=== PATIENT | male | born 1960 | race Caucasian/White ===

== ENCOUNTER → 2017-11-17 08:18 | Outpatient (CLI) | payer BC, SELFPAY ==
[2017-11-17 11:08] LABS: Hemoglobin A1c 6.9 % (4.2-6.3)
[2017-11-17 11:14] LABS: Anion Gap 8 (5-15); BUN 16 mg/dL (7-18); BUN/Creat Ratio 15.8 RATIO (10-20); Calcium,Total 9.1 mg/dL (8.5-10.1); Chloride 104 mmol/L (98-107); Cholesterol 128 mg/dL (200); Creatinine, Serum 1.01 mg/dL (0.70-1.30); EST Glomerular Filtration Rate 80 mL/min (>60); Est Glom Filt Rate - Afr Amer 97 mL/min (>60); Glucose 142 mg/dL (74-106); High Density Lipoprotein 33 mg/dL; PSA,Total- Diagnostic < 0.01 ng/mL (0.0-4.0); Potassium 4.2 mmol/L (3.5-5.1); Sodium Level 140 mmol/L (136-145); Triglycerides 122 mg/dL; Very Low Density Lipoprotein 24 mg/dL (5-40)
== END ==
PROVIDERS: Family Provider Family Medicine; PCP Family Medicine; Visit Provider Family Medicine
DX: I10 Essential (primary) hypertension (principal); E78.00 Pure hypercholesterolemia, unspecified; R73.03 Prediabetes; C61 Malignant neoplasm of prostate
CPT/HCPCS: 36415; 80048; 80061; 83036; 84153

== ENCOUNTER → 2018-06-26 13:10 | Outpatient (CLI) | payer BC, SELFPAY ==
[2018-06-26 13:43] LABS: Cholesterol 138 mg/dL (200); Glucose 120 mg/dL (74-106); High Density Lipoprotein 36 mg/dL; PSA,Total- Diagnostic < 0.01 ng/mL (0.0-4.0); Triglycerides 93 mg/dL; Very Low Density Lipoprotein 19 mg/dL (5-40)
[2018-06-26 13:44] LABS: Hemoglobin A1c 7.1 % (4.2-6.3)
== END ==
PROVIDERS: PCP Family Medicine; Visit Provider Family Medicine
DX: C61 Malignant neoplasm of prostate (principal); E11.9 Type 2 diabetes mellitus without complications; E78.00 Pure hypercholesterolemia, unspecified
CPT/HCPCS: 36415; 80061; 82947; 83036; 84153

== ENCOUNTER → 2018-12-23 08:17 | Outpatient (CLI) | payer BC, SELFPAY ==
[2018-12-23 10:29] LABS: Anion Gap 7 (5-15); BUN 17 mg/dL (7-18); BUN/Creat Ratio 20.2 RATIO (10-20); Calcium,Total 9.3 mg/dL (8.5-10.1); Chloride 108 mmol/L (98-107); Cholesterol 126 mg/dL (200); Creatinine, Serum 0.84 mg/dL (0.70-1.30); EST Glomerular Filtration Rate 99 mL/min (>60); Est Glom Filt Rate - Afr Amer 120 mL/min (>60); Glucose 122 mg/dL (74-106); High Density Lipoprotein 33 mg/dL; Potassium 4.3 mmol/L (3.5-5.1); Sodium Level 143 mmol/L (136-145); Triglycerides 73 mg/dL; Very Low Density Lipoprotein 15 mg/dL (5-40)
[2018-12-23 10:43] LABS: Hemoglobin A1c 6.6 % (4.2-6.3)
== END ==
PROVIDERS: Family Provider Family Medicine; PCP Family Medicine; Referring Provider Family Medicine; Visit Provider Family Medicine
DX: I25.10 Atherosclerotic heart disease of native coronary artery without angina pectoris (principal); I10 Essential (primary) hypertension; E11.9 Type 2 diabetes mellitus without complications
CPT/HCPCS: 36415; 80048; 80061; 83036

== ENCOUNTER → 2019-06-23 08:29 | Outpatient (CLI) | payer BC, SELFPAY ==
[2019-06-23 10:46] LABS: Hemoglobin A1c 6.6 % (4.2-6.3)
[2019-06-23 10:56] LABS: Cholesterol 121 mg/dL (200); Glucose 131 mg/dL (74-106); High Density Lipoprotein 32 mg/dL; PSA,Total- Diagnostic < 0.01 ng/mL (0.0-4.0); Triglycerides 79 mg/dL; Very Low Density Lipoprotein 16 mg/dL (5-40)
== END ==
PROVIDERS: Family Provider Family Medicine; PCP Family Medicine; Referring Provider Family Medicine; Visit Provider Family Medicine
DX: C61 Malignant neoplasm of prostate (principal); E11.9 Type 2 diabetes mellitus without complications; E78.00 Pure hypercholesterolemia, unspecified
CPT/HCPCS: 36415; 80061; 82947; 83036; 84153

== ENCOUNTER → 2019-09-03 06:19 | Outpatient (CLI) | payer BC, SELFPAY ==
[2019-08-25 12:03] VITALS: BMI 25.8
--- NOTE | 2019-09-03 08:22 | CT_ITS ---
STUDY: CT CHEST WITH CONTRAST REASON FOR EXAM: Male, 59 years old. AORTA DILATION -- HX-CABG RADIATION DOSAGE (If Supplied By Facility): CTDIvol = ( 9.51 ) mGy, DLP = ( 370.76 ) mGycm TECHNIQUE: Transaxial imaging was performed following intravenous administration of IV 100mL Isovue-300. Multiplanar coronal and sagittal images were reformatted. Individualized dose optimization techniques were used for this CT. COMPARISON: None. FINDINGS: Mild degree of increased markings at the lung bases suggest mild scarring. There is no demonstrated pleural abnormality. There are calcifications of the coronary arteries. Sternal cerclage wires and vascular clips are present from a prior sternotomy and coronary artery bypass graft procedure (CABG). Normal mediastinum. Normal hilar regions. Normal enhanced pulmonary arteries. The ascending thoracic aorta is dilated measuring 4.4 cm in maximum transverse dimension. There is no evidence of dissection. There are multi-level degenerative changes of the thoracic spine. There is no demonstrated abnormality of the visualized upper abdomen. CT/Chest WITH Contrast IMPRESSION: Dilatation of the ascending thoracic aorta. Electronically Signed: Mookie Strauss, at 15:11 EST , Service support ,
[2019-09-03 08:30] LABS: CREATININE FINGERSTICK 0.8 mg/dL (0.70-1.30); EGFR FINGERSTICK > 60.0000 mL/min (>60)
--- NOTE | 2019-09-03 09:30 | STRESSREP ---
Stress Test Report Exercise myocardial perfusion stress test. 59-year-old male with a history of chest pain. Stress protocol: Resting EKG demonstrates normal sinus rhythm with a rate of 63 bpm normal intervals are noted resting blood pressure is 112/68 mmHg. The patient exercised according to regular [place] protocol for a total duration of 12 minutes. The maximum heart rate attained was 141 bpm which was 88% maximum predicted heart rate the maximum workload was 13.4 metabolic equivalents. At rest there were no ST or T wave changes noted suggest ischemia peak exercise upsloping ST changes only were noted with no meet the criteria for ischemia. No clinical angina was noted. The resting blood pressures 112/68 with a peak blood pressure 166/64 mmHg rate-pressure product was 23,000. No clinical angina was noted the test was terminated due to leg fatigue. Myocardial perfusion protocol. 11.6 mCi of technetium 99m sestamibi was injected at rest. The patient exercised for 12 minutes and at peak exercise 33.2 mCi of technetium 99m sestamibi was injected stress images were obtained stress and rest images were reconstructed and compared in the short axis vertical long horizontal long axis. Gated images were also obtained per Perfusion SPECT analysis: Review of the stress images demonstrate normal uptake of tracer noted in all areas of the myocardium the resting images similar demonstrate normal uptake of tracer noted in all areas of the myocardium. No reversibility is noted suggest ischemia no previous infarct is noted. Gated SPECT analysis: The gated ejection fraction is 71%. Conclusion: Normal exercise myocardial perfusion stress test with no evidence of ischemia. Excellent functional capacity. Preserved ejection fraction.
== END ==
PROVIDERS: PCP Family Medicine; Referring Provider Internal Medicine Cardiovascular Disease; Visit Provider Internal Medicine Cardiovascular Disease
DX: I77.810 Thoracic aortic ectasia (principal); Z95.1 Presence of aortocoronary bypass graft
CPT/HCPCS: 71260; 78452; 93017; A9500; Q9967; A4216

== ENCOUNTER → 2019-12-23 08:35 | Outpatient (CLI) | payer BC, SELFPAY ==
[2019-08-25 12:03] VITALS: BMI 25.8
[2019-12-23 13:47] LABS: Anion Gap 6 (5-15); BUN 13 mg/dL (7-18); BUN/Creat Ratio 14.6 RATIO (10-20); Calcium,Total 9.4 mg/dL (8.5-10.1); Chloride 107 mmol/L (98-107); Creatinine, Serum 0.89 mg/dL (0.70-1.30); EST Glomerular Filtration Rate 93 mL/min (>60); Est Glom Filt Rate - Afr Amer 112 mL/min (>60); Glucose 135 mg/dL (74-106); Sodium Level 140 mmol/L (136-145)
[2019-12-23 13:50] LABS: Hemoglobin A1c 6.8 % (4.2-6.3)
== END ==
PROVIDERS: PCP Family Medicine; Visit Provider Family Medicine
DX: E11.9 Type 2 diabetes mellitus without complications (principal)
CPT/HCPCS: 36415; 80048; 83036

== ENCOUNTER → 2020-06-13 09:36 | Outpatient (CLI) | payer BC, SELFPAY ==
[2019-08-25 12:03] VITALS: BMI 25.8
[2020-06-13 12:34] LABS: ALB/GLOB Ratio 1.3 RATIO (0.9-2.4); AST(SGOT) 20 U/L (15-37); Alanine Aminotransfer ALT/SGPT 38 U/L (16-61); Alkaline Phosphatase 78 U/L (45-117); Anion Gap 9 (5-15); BUN 20 mg/dL (7-18); BUN/Creat Ratio 21.4 RATIO (10-20); Calcium,Total 8.9 mg/dL (8.5-10.1); Chloride 109 mmol/L (98-107); Cholesterol 134 mg/dL (200); Creatinine, Serum 0.93 mg/dL (0.70-1.30); EST Glomerular Filtration Rate 87 mL/min (>60); Est Glom Filt Rate - Afr Amer 106 mL/min (>60); Glucose 128 mg/dL (74-106); High Density Lipoprotein 43 mg/dL; PSA,Total- Diagnostic < 0.01 ng/mL (0.0-4.0); Sodium Level 139 mmol/L (136-145); Triglycerides 68 mg/dL; Very Low Density Lipoprotein 14 mg/dL (5-40)
[2020-06-13 13:05] LABS: Hemoglobin A1c 6.9 % (3.8-5.6)
== END ==
PROVIDERS: PCP Family Medicine; Referring Provider Family Medicine; Visit Provider Family Medicine
DX: E78.00 Pure hypercholesterolemia, unspecified (principal); I11.9 Hypertensive heart disease without heart failure; Z90.79 Acquired absence of other genital organ(s)
CPT/HCPCS: 36415; 80053; 80061; 83036; 84153

== ENCOUNTER → 2020-12-18 08:26 | Outpatient (CLI) | payer BC, SELFPAY ==
[2020-08-24 13:28] VITALS: BMI 25.8
[2020-12-18 10:23] LABS: Hemoglobin A1c 6.5 % (3.8-5.6)
[2020-12-18 10:31] LABS: ALB/GLOB Ratio 1.2 RATIO (0.9-2.4); AST(SGOT) 19 U/L (15-37); Alanine Aminotransfer ALT/SGPT 45 U/L (16-61); Albumin, Serum 3.8 g/dL (3.2-5.0); Alkaline Phosphatase 89 U/L (45-117); Anion Gap 5 (5-15); BUN 16 mg/dL (7-18); BUN/Creat Ratio 18.4 RATIO (10-20); Calcium,Total 9.3 mg/dL (8.5-10.1); Chloride 108 mmol/L (98-107); Cholesterol 123 mg/dL (200); Creatinine, Serum 0.87 mg/dL (0.70-1.30); EST Glomerular Filtration Rate 95 mL/min (>60); Est Glom Filt Rate - Afr Amer 115 mL/min (>60); Globulin 3.1 g/dL (2.2-4.2); Glucose 151 mg/dL (74-106); High Density Lipoprotein 38 mg/dL; PSA,Total- Diagnostic < 0.01 ng/mL (0.0-4.0); Potassium 4.6 mmol/L (3.5-5.1); Protein, Total 6.9 g/dL (6.4-8.2); Sodium Level 139 mmol/L (136-145); Triglycerides 58 mg/dL; Very Low Density Lipoprotein 12 mg/dL (5-40)
== END ==
PROVIDERS: PCP Family Medicine; Referring Provider Family Medicine; Visit Provider Family Medicine
DX: E78.00 Pure hypercholesterolemia, unspecified (principal); Z90.79 Acquired absence of other genital organ(s); E11.9 Type 2 diabetes mellitus without complications
CPT/HCPCS: 36415; 80053; 80061; 83036; 84153

== ENCOUNTER → 2021-06-20 08:40 | Outpatient (CLI) | payer BC, SELFPAY ==
[2021-06-20 10:20] LABS: Absolute Lymphocyte Count 1.45 X10^3/uL (0.83-4.51); Basophil# 0.04 X10^3/uL; Basophil% 0.6 % (0-1); Eosinophil# 0.25 X10^3/uL; Hematocrit 45.5 % (40-54); Hemoglobin 15.9 g/dL (13.0-16.5); Lymphocyte # 1.45 X10^3/ul (0.83-4.51); Lymphocyte % 23.4 % (19-41); Mean Corp Hgb Conc 34.9 g/dL (32-36); Mean Corpuscular Hgb 31.3 pg (27.0-32.0); Mean Corpuscular Volume 89.6 fL (80-94); Mean Platelet Vol. 11.2 fl (6.2-12.0); Monocyte# 0.42 X10^3/uL; Monocyte% 6.8 % (0-10); NRBC Flagged by Analyzer 0 % (0-5); Neutrophil # 4.02 X10^3/uL (2.7-7.7); Platelet Count 195 K/mm3 (150-450); RBC Distribution Width CV 12.6 % (11.6-14.6); RBC Distribution Width SD 41.6 fl (35.1-43.9); Red Blood Count 5.08 M/mm3 (4.6-6.2); White Blood Count 6.2 K/mm3 (4.4-11.0)
[2021-06-20 11:00] LABS: Microalbumin:Creatinine Ratio 7.3 mg/g CRE (<30 mg/g CRE)
[2021-06-20 11:22] LABS: Hemoglobin A1c 7.1 % (3.8-5.6)
[2021-06-20 11:34] LABS: AST(SGOT) 18 U/L (15-37); Alanine Aminotransfer ALT/SGPT 38 U/L (16-61); Albumin, Serum 3.5 g/dL (3.2-5.0); Alkaline Phosphatase 79 U/L (45-117); Anion Gap 4 (5-15); BUN 17 mg/dL (7-18); BUN/Creat Ratio 17.3 RATIO (10-20); Calcium,Total 9.2 mg/dL (8.5-10.1); Chloride 109 mmol/L (98-107); Cholesterol 113 mg/dL (200); Creatinine, Serum 0.98 mg/dL (0.70-1.30); EST Glomerular Filtration Rate 82 mL/min (>60); Est Glom Filt Rate - Afr Amer 99 mL/min (>60); Globulin 3.4 g/dL (2.2-4.2); Glucose 157 mg/dL (74-106); High Density Lipoprotein 36 mg/dL; Potassium 4.2 mmol/L (3.5-5.1); Protein, Total 6.9 g/dL (6.4-8.2); Sodium Level 138 mmol/L (136-145); Triglycerides 72 mg/dL; Very Low Density Lipoprotein 14 mg/dL (5-40)
== END ==
PROVIDERS: PCP Registered Nurse; Referring Provider Registered Nurse; Visit Provider Registered Nurse
DX: E11.9 Type 2 diabetes mellitus without complications (principal)
CPT/HCPCS: 36415; 80053; 80061; 82043; 82570; 83036; 85025

== ENCOUNTER 2021-08-31 16:35 | Outpatient (CLI) | payer BC, SELFPAY ==
--- NOTE | 2021-08-31 16:38 | CT_ITS ---
INDICATION: Ascending Aneurysm evaluation -- Previous CT- 09/03/2019 EXAMINATION: CT CHEST WITH CONTRAST - CT Chest W/ Contrast Injection TECHNIQUE: Helically acquired images were obtained of the chest following IV contrast. A radiation dose optimization technique was used for this scan. IV Contrast dosage and agent: 100 mL of ISOVUE-370 COMPARISON: CT chest 09/03/2019 FINDINGS: LUNGS, PLEURA AND LARGE AIRWAYS: No masses, consolidation, or edema. No pleural effusion or thickening. No pneumothorax. THYROID: No thyroid lesions. HEART AND PERICARDIUM: Heart size is normal. No pericardial effusion. Patient is status post prior coronary artery bypass graft with sternotomy wires present. VESSELS: Thoracic aorta measures 3.8 x 3.8 cm on axial images. No aortic dissection. No obvious central pulmonary embolism although this study was not performed with the pulmonary embolism protocol. MEDIASTINUM AND ROBIN: No mediastinal or hilar adenopathy. Esophagus is unremarkable. No hiatal hernia. UPPER ABDOMEN: 12 mm right hepatic lobe hypodensity unchanged compared to prior exam 08/20/2015 likely representing cyst. BONES: No suspicious lytic or blastic abnormality. CT/Chest WITH Contrast IMPRESSION: 3.8 x 3.8 cm descending thoracic aorta presenting mild ectasia. No dissection. 12 mm right hepatic lobe hypodensity unchanged compared with 2016 exam likely representing cysts. Electronically Signed: Orion Hernández DO at 22:45 EST Tel , Service support ,
[2021-08-31 16:51] LABS: CREATININE FINGERSTICK 0.8 mg/dL (0.70-1.30); EGFR FINGERSTICK > 60.0000 mL/min (>60)
== END 2021-08-31 23:59 | disposition short-term general hospital (02) ==
LOC: CT 16:37
PROVIDERS: PCP Family Medicine; Referring Provider Nurse Practitioner Family; Visit Provider Nurse Practitioner Family
DX: I71.2 Thoracic aortic aneurysm, without rupture (principal)
CPT/HCPCS: 71260; Q9967

== ENCOUNTER 2021-10-17 08:28 | Outpatient (CLI) | payer BC, SELFPAY ==
[2021-10-17 08:32] LABS: Bacteria 0 SEEN /hpf (None Seen); Mucous, Urine 0 SEEN /hpf (<or=2+); Red Blood Cells-Urine 0 SEEN /hpf (0-5); Squamous Epithelial Cells - UA 0 SEEN /hpf (0-5); White Blood Cells 0 SEEN /hpf (0-5)
[2021-10-17 10:08] LABS: Absolute Lymphocyte Count 1.63 X10^3/uL (0.83-4.51); Absolute Neutrophil Count 3.4 X10^3/uL (2.0-7.7); Basophil# 0.03 X10^3/uL; Basophil% 0.5 % (0-1); Color, Urine Yellow (Yellow); Eosinophil# 0.25 X10^3/uL; Eosinophils% 4.3 % (0-5); Glucose, Dipstick Normal (Normal); Hematocrit 46.4 % (40-54); Hemoglobin 15.6 g/dL (13.0-16.5); Ketone-Dipstick Negative (Negative); Leukocyte Esterase-Dipstick Negative /ul (Negative); Lymphocyte # 1.63 X10^3/ul (0.83-4.51); Lymphocyte % 28.1 % (19-41); Mean Corp Hgb Conc 33.6 g/dL (32-36); Mean Corpuscular Hgb 30.8 pg (27.0-32.0); Mean Corpuscular Volume 91.7 fL (80-94); Mean Platelet Vol. 11.2 fl (6.2-12.0); Monocyte# 0.48 X10^3/uL; Monocyte% 8.3 % (0-10); NRBC Flagged by Analyzer 0 % (0-5); Neutrophil % 58.6 % (47-70); Nitrite-Dipstick Negative (Negative); Occult Blood-Urine Negative /ul (Negative); Platelet Count 184 K/mm3 (150-450); Protein-Dipstick Negative (Negative); RBC Distribution Width CV 12.7 % (11.6-14.6); RBC Distribution Width SD 42.5 fl (35.1-43.9); Red Blood Count 5.06 M/mm3 (4.6-6.2); Urine Bilirubin Dipstick Negative (Negative); Urine Clarity Clear (Clear); Urine Urobilinogen Normal (Normal); White Blood Count 5.8 K/mm3 (4.4-11.0)
[2021-10-17 10:27] LABS: Hemoglobin A1c 6.7 % (3.8-5.6)
[2021-10-17 10:54] LABS: ALB/GLOB Ratio 1.3 RATIO (0.9-2.4); AST(SGOT) 19 U/L (15-37); Alanine Aminotransfer ALT/SGPT 37 U/L (16-61); Albumin, Serum 3.9 g/dL (3.2-5.0); Alkaline Phosphatase 71 U/L (45-117); Anion Gap 10 (5-15); BUN 20 mg/dL (7-18); BUN/Creat Ratio 20.9 RATIO (10-20); Calcium,Total 9.1 mg/dL (8.5-10.1); Chloride 105 mmol/L (98-107); Cholesterol 112 mg/dL (200); Creatinine, Serum 0.96 mg/dL (0.70-1.30); EST Glomerular Filtration Rate 84 mL/min (>60); Est Glom Filt Rate - Afr Amer 102 mL/min (>60); Globulin 3.1 g/dL (2.2-4.2); Glucose 137 mg/dL (74-106); High Density Lipoprotein 36 mg/dL; Microalbumin,Random Urine 10.5 mg/L (NO RANGE EST.); Potassium 4.1 mmol/L (3.5-5.1); Sodium Level 138 mmol/L (136-145); Thyroid Stim Hormone (TSH) 1.87 uIU/mL (0.358-3.74); Triglycerides 66 mg/dL; Very Low Density Lipoprotein 13 mg/dL (5-40)
[2021-10-17 10:55] LABS: Microalbumin:Creatinine Ratio 7.9 mg/g CRE (<30 mg/g CRE)
== END 2021-10-17 23:59 | disposition home or self-care (01) ==
LOC: MFPLAB 08:29
PROVIDERS: PCP Family Medicine; Referring Provider Family Medicine; Visit Provider Family Medicine
DX: E11.59 Type 2 diabetes mellitus with other circulatory complications (principal); E11.69 Type 2 diabetes mellitus with other specified complication
CPT/HCPCS: 36415; 80053; 80061; 81001; 82043; 82570; 83036; 84443; 85025

== ENCOUNTER → 2022-05-29 | Outpatient (CLI) | payer BC, SELFPAY ==
[2022-05-29 12:03] LABS: Absolute Lymphocyte Count 1.57 X10^3/uL (0.83-4.51); Absolute Neutrophil Count 3.9 X10^3/uL (2.0-7.7); Basophil# 0.04 X10^3/uL; Basophil% 0.6 % (0-1); Eosinophil# 0.39 X10^3/uL; Eosinophils% 6.1 % (0-5); Hematocrit 45.8 % (40-54); Hemoglobin 15.4 g/dL (13.0-16.5); Lymphocyte # 1.57 X10^3/ul (0.83-4.51); Lymphocyte % 24.6 % (19-41); Mean Corp Hgb Conc 33.6 g/dL (32-36); Mean Corpuscular Hgb 30.9 pg (27.0-32.0); Mean Corpuscular Volume 91.8 fL (80-94); Mean Platelet Vol. 11.6 fl (6.2-12.0); Monocyte# 0.47 X10^3/uL; Monocyte% 7.4 % (0-10); NRBC Flagged by Analyzer 0 % (0-5); Neutrophil # 3.89 X10^3/uL (2.7-7.7); Neutrophil % 61.1 % (47-70); Platelet Count 205 K/mm3 (150-450); RBC Distribution Width CV 12.8 % (11.6-14.6); RBC Distribution Width SD 42.4 fl (35.1-43.9); Red Blood Count 4.99 M/mm3 (4.6-6.2); White Blood Count 6.4 K/mm3 (4.4-11.0)
[2022-05-29 12:33] LABS: ALB/GLOB Ratio 1.3 RATIO (0.9-2.4); AST(SGOT) 18 U/L (15-37); Alanine Aminotransfer ALT/SGPT 46 U/L (16-61); Albumin, Serum 3.9 g/dL (3.2-5.0); Alkaline Phosphatase 79 U/L (45-117); Anion Gap 7 (5-15); BUN 19 mg/dL (7-18); BUN/Creat Ratio 20.9 RATIO (10-20); Calcium,Total 9.3 mg/dL (8.5-10.1); Chloride 108 mmol/L (98-107); Cholesterol 125 mg/dL (200); Creatinine, Serum 0.91 mg/dL (0.70-1.30); EST Glomerular Filtration Rate 89 mL/min (>60); Est Glom Filt Rate - Afr Amer 108 mL/min (>60); Globulin 3.1 g/dL (2.2-4.2); Glucose 154 mg/dL (74-106); High Density Lipoprotein 41 mg/dL; PSA,Total- Diagnostic < 0.01 ng/mL (0.0-4.0); Sodium Level 142 mmol/L (136-145); Thyroid Stim Hormone (TSH) 1.76 uIU/mL (0.358-3.74); Triglycerides 76 mg/dL; Very Low Density Lipoprotein 15 mg/dL (5-40)
[2022-05-29 12:42] LABS: Vitamin D,25 Hydroxy 35.3 ng/mL
[2022-05-29 13:32] LABS: Hemoglobin A1c 7.3 % (3.8-5.6)
== END | disposition home or self-care (01) ==
LOC: BIMLAB 08:28
PROVIDERS: PCP Internal Medicine; Referring Provider Internal Medicine; Visit Provider Internal Medicine
DX: I25.10 Atherosclerotic heart disease of native coronary artery without angina pectoris (principal); C61 Malignant neoplasm of prostate; E11.9 Type 2 diabetes mellitus without complications; I10 Essential (primary) hypertension; E78.5 Hyperlipidemia, unspecified; Z95.1 Presence of aortocoronary bypass graft
CPT/HCPCS: 36415; 80053; 80061; 82306; 83036; 84153; 84443; 85025

== ENCOUNTER → 2022-07-24 | Outpatient (CLI) | payer BC, SELFPAY | END | disposition home or self-care (01) | LOC: LABSPEC 13:48 | PROVIDERS: PCP Internal Medicine; Referring Provider Physician Assistant; Visit Provider Physician Assistant | DX: U07.1 COVID-19 (principal); R05.9 Cough, unspecified | CPT/HCPCS: 87635; U0003; U0005 ==

== ENCOUNTER 2022-10-04 08:15 | Day surgery (SDC) | payer BC, SELFPAY ==
[2022-10-04] VITALS (10 sets, daily range): BP systolic 108–123; BP diastolic 75–85; PULSE 52–60; RESP 16–18; TEMP 36.1–36.7; O2SAT 90–98; BMI 25.2
--- NOTE | 2022-10-04 | IMM_PTH ---
PATIENT: DASHAWN GARCIA [place]: [facility] [place][id number] AGE/SX: 62/M ROOM: RE10/04/[address]: Dr. David Miller MD : 1960 BED: DIS: 10/04/2022 SPEC #: [id number] RECD: 10/08/22 13:50 STATUS: KEMAR REQ #: [id number] ANAMARIA: 10/04/22 00:[address]: David Miller DEPT: IMMUNOHISTOCHEMISTRY RECD BY: Kathi Mckeon ENTERED: 10/08/22 13:52 SP TYPE: IMMUNO OTHR DR: Dr. Jessica Dan MD Tissues: Wrist, NOS Procedures: SMA (add) Bk Ret (add) CD31 (add) CD34 (add) DESMIN (add) KI-67 (add) P53 (add) Vimentin (add) SMM (add) FACTOR VIII (add) NEUROFIL (add) Pankeratin (initial) NSE (add) S-100 (add) PHYSICIAN & [address] [address] SPECIMEN INFORMATION: Tissue Source: Soft tissue mass right wrist Clinical Info: Ganglion cyst Specimen Number: [id number] CPT code: 14127, 07118 x13 METHODOLOGY: Deparaffinized sections of prefer/formalin-fixed tissue or PAP/DQ stained slides are incubated with monoclonal/polyclonal antibodies/oligonucleotide probes. Localization is made via biotin free immunoperoxidase method. Appropriate controls are performed and reacted as expected. Results on target cell population are indicated in the following table: RESULTS: ANTIBODY / CLONE RESULT AE1-3 (AE1/AE3/PCK26) negative Vimentin (V9) positive CD31 (MUKUL/70A) negative Factor VIII (R Ag) negative CD34 (QBEnd-10) negative Actin (1A4) positive Myosin (simms1) positive Desmin (CE-R-11) negative S-100 (4C4.9) negative Neurofil (2F11) negative NSE Neuron Specific Enolase negative CALRET (polyclonal) negative P53 (DO-7) negative Ki-67 (30-9) positive, 1% These tests were developed and their performance characteristics determined by [facility]. They may not have been cleared or approved by the U.S. Food and Drug Administration. The FDA has determined that such clearance or approval is not necessary. The above immunohistochemical/dualISH markers are ordered and reviewed by the Pathologist. INTERPRETATION: Soft tissue mass of right wrist, excision: Consistent with vascular leiomyoma. AM:joann 10/09/2022 Case has been reviewed in consultation with Dr. Delgado who concurs with the above diagnosis. IDC:SJ
[2022-10-04] MEDS: Cefazolin 2 GM in 0.9% Normal Saline 100 ML IV (08:26)
--- NOTE | 2022-10-04 08:58 | HP.PCM_ITS ---
History and Physical Date of Admission: 10/04/22 HISTORY OF PRESENT ILLNESS 62 year old man presents with a soft tissue mass dorsum right wrist by ring finger that he has had for a few years and has increased in size over the last several months.? There is some discomfort when it is bumped.? He denies trauma.? He denies numbness in his fingers.? He denies any range of motion issues right hand and wrist.? 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 He is right hand dominant.? He had an x-ray on 09/06/22. It showed osteopenia with mild osteoarthritic changes. No acute abnormality, chondrocalcinosis or erosive changes. He presents at this time for further evaluation and treatment. PAST MEDICAL HISTORY Atherosclerosis of coronary artery of [place] heart without angina pectoris Back problem Essential (primary) hypertension Ganglion cyst of dorsum of right wrist GERD (gastroesophageal reflux disease) Headache, migraine Heart disease Hemoglobin A1c between 7.0% and 9.0% Hyperlipidemia Old anterior wall myocardial infarction (05/23/13) Prostate cancer Thoracic aortic aneurysm (TAA) Type 2 diabetes mellitus PAST SURGICAL HISTORY H/O coronary artery bypass surgery (05/26/13) History of coronary angioplasty (05/23/13) History of prostatectomy (2015) ALLERGIES No Known Allergies MEDICATIONS aspirin nugavepa-wdl-rvnio osrm-hwapdcmg-cdjrjf (Centrum Silver Men) calcium carbonate chewable tablet (Tums) atorvastatin metoprolol tartrate benazepril metformin omeprazole amlodipine FAMILY HISTORY Father - CAD (coronary artery disease) SOCIAL HISTORY Smoking Status:? Former smoker alcohol intake:? current alcohol intake frequency: a few times a month Alcohol type: beer substance use type:? does not use REVIEW OF SYSTEMS General - Denies fever, fatigue, and weight loss. Eyes - Denies cataracts and glaucoma. ENT - Denies nasal congestion and sore throat. Endocrine - Denies excessive thirst and urination. ? Has diabetes mellitus.? HgbA1c is 7.3 on 05/29/22. Skin - Denies suspicious lesions and skin cancer.? Has soft tissue mass dorsum right wrist by ring finger.? Musculoskeletal - Denies joint pain, joint stiffness, weakness of muscles and joints, and arthritis.? Has back pain.? Neuro - Denies headaches. Cardiovascular - Denies chest pain, fatigue, and shortness of breath with exertion. Psych - Denies anxiety and depression. Respiratory - Denies chronic cough and shortness of breath.? Patient is a former smoker. Gastrointestinal - Denies nausea, vomiting, diarrhea, and constipation. Hematologic - Denies abnormal bruising and bleeding. Genitourinary - Denies hematuria and urinary frequency. PHYSICAL EXAMINATION General - Alert and Oriented. HEENT - PERRL. EOMI.? Throat is clear. Neck - Supple and nontender.? No cervical adenopathy. Lungs - Clear to auscultation. Heart - Regular rate and rhythm. Abdomen - Soft and nondistended. Extremities - FROM. No axillary adenopathy.? Radial pulses are palpable. Has good mechanical engineering director strength.? Patient is right hand dominant.? On the dorsum right wrist by ring finger is a soft tissue mass clinically a ganglion cyst.? It is mobile.? Measures 1.1 cm.? No ulceration.? Slight discomfort when the soft tissue mass is bumped.? Flexion and extension are intact.? Thumb opposition intact. Neuro - CN II-XII grossly intact. Psych - Normal mood and affect. ASSESSMENT 1.? 1.1 cm ganglion cyst dorsum right wrist by ring finger. 2.? Diabetes mellitus. 3.? HgbA1c 7.3 on 05/29/22. PLAN Patient has a soft tissue mass dorsum right wrist by ring finger that clinically is a ganglion cyst.? It has increased in size over the last several months, and there is some discomfort when it is bumped.? Recommend excision of this ganglion cyst that can be done on an outpatient basis under [place] anesthesia with a tourniquet.? Commonly these ganglion cysts originate from the scapholunate joint or the radiocarpal joint.? Will trace the stalk down to the joint and include a cuff of capsule to minimize recurrence.? Tissue that is excised will be sent to Pathology for analysis to rule out carcinoma.? Postoperatively he will wear a wrist splint for a couple of weeks.? His fingers will be free for range of motion exercises to minimize stiffness.? If any stiffness is persistent, then will need OT for range of motion exercises, strengthening, and edema management. He had an x-ray on 09/06/22. It showed osteopenia with mild osteoarthritic changes. No acute abnormality, chondrocalcinosis or erosive changes. Patient has diabetes mellitus and his latest HgbA1c is 7.3 on 05/29/22.? For elective surgeries, it needs to be less than 8.? Patient was informed of the risks and complications of the procedure including alternatives to surgery.? These were discussed with the patient personally.? Patient voices understanding and wishes to proceed. Some of the risks and complications were included in a form from the [employer]. Some of the risks and complications that were discussed included but were not inclusive of failure to diagnose including symptom relief, pain, infection, numbness, stiffness, loss of digit, RSD (CRPS), need for further surgery, contracture, and wound healing problems. Assessment & Plan Assessment/Plan (1) Ganglion cyst of dorsum of right wrist: (2) Type 2 diabetes mellitus: (3) Hemoglobin A1c between 7.0% and 9.0%:
[2022-10-04] MEDS: Lactated Ringers 1,000 ML 15 ML IV (09:03)
[2022-10-04 09:35] LABS: Bedside Glucose 168 mg/dL (74-106)
[2022-10-04] MEDS: Lidocaine 1% /Epi 1:100 (20ml) 20 ML Vial (09:55)
--- NOTE | 2022-10-04 09:55 | GANG_PTH ---
PATIENT: DASHAWN GARCIA LOC: [facility] – [place] U#:[id number] AGE/SX: 62/M ROOM: RE10/04/[address]: Dr. David Miller MD : 1960 BED: DIS: 10/04/2022 SPEC #: [id number] RECD: 10/04/22 13:49 STATUS: KEMAR REDavid #: [id number] ANAMARIA: 10/04/22 09:[address]: David Miller DEPT: SURGICAL PATHOLOGY RECD BY: aL Taylor ENTERED: 10/07/22 09:48 SP TYPE: GANGLION OTHR DR: Dr. Jessica Dan MD Tissues: GANGLION CYST Procedures: Surgery Specimen Level IV HEADER OPERATION: Excision ganglion cyst, dorsum right wrist PRE-OP DIAGNOSIS: 1.1 cm ganglion cyst right wrist by ring finger TISSUE SUBMITTED: Soft tissue mass right wrist MICROSCOPIC DIAGNOSIS Soft tissue mass of right wrist, excision: Consistent with vascular leiomyoma. See comment. AM:joann 10/09/2022 COMMENT Immunohistochemistry ([id number]) supports the above diagnosis. Case has been reviewed in consultation with Dr. Delgado who concurs with the above diagnosis. IDC:SJ MICROSCOPIC DESCRIPTION Slides are reviewed. GROSS DESCRIPTION Received in fixative is one container labeled with the patient's name and designated soft tissue mass right wrist. The specimen consists of two irregular fragments of light abrams-white soft tissue ranging in size from 0.5 to 1.5 cm. The specimen is totally submitted in one cassette. / AM:joann 10/07/2022 TC:1 CPT: 78231
[2022-10-04] MEDS: Mupirocin Ointment 22gm Tube 1 APPLIC (10:10)
--- NOTE | 2022-10-04 10:31 | OP.PCM_ITS ---
Problems Associated Problem List Diagnoses (1) Mass of soft tissue of wrist: (2) Type 2 diabetes mellitus: (3) Hemoglobin A1c between 7.0% and 9.0%: Report of Operation Date of Procedure: 10/04/22 Pre-Operative Diagnosis: 1. 1.1 cm soft tissue mass dorsum right wrist by ring finger, clinical ganglion cyst. 2. Diabetes mellitus. 3. HgbA1c 7.3 on 05/29/22. Post-Operative Diagnosis: 1. 1.1 cm solid soft tissue mass dorsum right wrist by ring finger. 2. Diabetes mellitus. 3. HgbA1c 7.3 on 05/29/22. Surgery/Procedure Performed:: Excision 1.1 cm solid soft tissue mass dorsum right wrist by ring finger. Description of Surgical Findings:: 62 year old man presents with a soft tissue mass dorsum right wrist by ring finger that he has had for a few years and has increased in size over the last several months.? There is some discomfort when it is bumped.? He denies trauma.? He denies numbness in his fingers.? He denies any range of motion issues right hand and wrist.? He has no problems with antisqueak chalker strength.? He is right hand dominant.? He had an x-ray on 09/06/22.? It showed osteopenia with mild osteoarthritic changes.? No acute abnormality, chondrocalcinosis or erosive changes.?? Patient was informed of the risks and complications of the procedure including alternatives to surgery. These were discussed with the patient personally. Patient voices understanding and wishes to proceed. Some of the risks and complications were included in a form from the [employer] [employer]. Potential risks and complications included but not inclusive of bleeding, infection, seroma, hematoma, bruising, swelling, loss of sensation to skin, wound breakdown, need for wound care, poor scarring, poor aesthetic outcome, intra operative cardiac or neurologic events, DVT, PE, and reaction to anesthesia. Total tourniquet time - 52 minutes. It was a solid soft tissue mass without communication with the underlying wrist joint. Surgeon: David Miller MD acute care nurse: None Type of Anesthesia: Block,So-Hi Anesthesiologist: Haseeb Aranda MD and Jeremiah Faust CRNA Specimen's removed: Soft tissue mass dorsum right wrist by ring finger to Pathology. Drains: None. Estimated Blood Loss (mL): 5. Description of Procedure: Patient was taken to OR in supine position and was given IV sedation. A tourniquet was placed and elevated to 250 mmHg. A So-Hi Block was administered. The right hand was prepped and draped in the usual fashion. SCD's were placed for DVT prophylaxis. Perioperative antibiotics were given intravenously. Horizontal marking was made over the mass with a zig zag extension radially in anticipation that if a ganglion cyst is seen, the stalk may travel radially toward the scapholunate joint. The marking was infiltrated with xylocaine and epinephrine. After waiting 5 minutes for the anesthetic to take effect, I made a horizontal incision over the mass under loupe magnification. Dissection was carried down into the subcutaneous tissue. The mass was well encapsulated. It felt firm. I extended the incision in a zig zag fashion radially to look for a stalk. None was seen. There was no communication with this soft tissue mass and the wrist joint. There was a dorsal sensory branch of the ulnar nerve that was preserved during this dissection. When this mass was excised, I made an incision into the mass on the back table. There was no gelatinous material seen to suggest a ganglion cyst. There was no sebaceous material seen to suggest an inclusion cyst. It was a solid firm mass suggestive of a fibroma. The mass was then sent to Pathology for analysis to rule out carcinoma. The tourniquet was released after 52 minutes. The wound was irrigated with saline. Hemostasis was obtained with electrocautery. The wound was then closed in a layered fashion using 4-0 Vicryl interrupted sutures for the deep dermis and subcutaneous tissue. The skin was approximated with 5-0 Nylon simple interrupted sutures. Antibiotic ointment was placed on the suture line followed by 2x2 gauze and wrapped with a Kerlix gauze and followed with a compression gio wrap. Since the wrist was not involved, no wrist splint was needed. Patient tolerated the procedure well and was sent to PACU in satisfactory condition. Patient will be sent home on antibiotics and pain medication. He will keep his right hand elevated during the initial postoperative period. Patient will followup in a week for a wound check and for discussion of the pathology report. I will remove the sutures in 2 weeks. Grafts/Implants Used: None. Procedure Start Time: 09:55 Procedure Stop Time: 10:25 Complications None. Admit VTE Documentation VTE Present on Admission: No VTE Mechan Device Prophylaxis: SCD's VTE Pharm Prophylaxis ordered?: No Addendum Addendum: Surgery Charges CPT - 05969 ICD-10 - M79.89, E11.9, R73.9
--- NOTE | 2022-10-04 11:53 | DCINST_ITS ---
Discharge Instructions Diet Discharge Diet: No restrictions Activity Discharge Activity: May Not Drive (for 24 hours and longer if taking pain medication), May Shower (wear plastic bag over right hand when showering.) and - (elevate right hand. 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 Keep extremity elevated above heart level: Right Arm Additional Activity Instructions:: may golf after being seen in office in one week. Dressing / Incision Call your doctor if your incision/area has: Continuous Slow Oozing, Sudden Increased Bleeding, Increased Pain/ Swelling, Increased Redness, Foul Smelling Discharge and Swelling at the incision site Call your doctor if you observe: Fever of 101 or Higher, Coldness, Increased Pain, Shortness of breath, Chest pain, Calf discomfort and Uncontrolled pain Change Dressing in: leave in place till F/U (will change operative dressing in office in one week. ) Cleanse incision/area with: Keep Dressing Clean & Dry (wear plastic bag over right hand when showering) Additional Dressing/Incision Instructions:: If the dressing is too tight, may loosen it and rewrap a little looser. Follow Up Care Please Follow Up With: David Miller MD When: one week. call [phone] for appt. Test Results: Test results from this visit will be discussed in further detail at your follow- up appointment, if applicable. Discharge Plan Admission Primary Reason for Your Visit: excision soft tissue mass dorsum right wrist Attending Provider: David Miller Primary Care Provider: Jessica Dan Discharge Orders/Prescriptions Prescriptions: New cefadroxil 500 mg capsule 500 mg PO BID Qty: 10 0RF L.acidoph,saliva-B.bif-S.therm [Acidophilus Probiotic Blend] 175 mg capsule 1 cap PO DAILY Qty: 10 0RF Continued aspirin [Adult Aspirin Regimen] 81 mg tablet,delayed release (DR/EC) 81 mg PO DAILY Label Comments: STOP 3 DAYS PRIOR Centrum Silver Men 300-600-300 mcg tablet 1 tab PO DAILY omeprazole 10 mg capsule,delayed release(DR/EC) 20 mg PO MOTH Label Comments: TAKE 1 CAPSULE BY MOUTH DAILY NEEDED FOR REFLUX Fiber (dextrin) 3 gram/3.5 gram Powder 3 g PO TID benazepril 40 mg tablet 40 mg PO QHS atorvastatin 80 mg tablet 80 mg PO QHS Qty: 90 3RF metoprolol tartrate 25 mg tablet 25 mg PO BID Qty: 180 3RF metformin 500 mg tablet 500 mg PO BID Qty: 180 3RF amlodipine 10 mg tablet 10 mg PO DAILY Qty: 90 3RF Referrals / Follow Up: David Miller MD [Med Staff - Active Staff] - (followup one week.) Jessica Dan MD [Primary Care Provider] - Disposition Disposition (needs filled in before D/C Order can be placed): Home, Self Care
== END 2022-10-04 12:43 | disposition home or self-care (01) ==
LOC: SDC 08:16 → AC 08:20
PROVIDERS: PCP Internal Medicine; Referring Provider Surgery; Visit Provider Surgery
PROC: (CPT 25075; principal; 2022-10-04 09:40)
DX: D21.11 Benign neoplasm of connective and other soft tissue of right upper limb, including shoulder (principal); I71.20 Thoracic aortic aneurysm, without rupture, unspecified; E11.9 Type 2 diabetes mellitus without complications; I10 Essential (primary) hypertension; I25.10 Atherosclerotic heart disease of native coronary artery without angina pectoris; E78.5 Hyperlipidemia, unspecified; K21.9 Gastro-esophageal reflux disease without esophagitis; I25.2 Old myocardial infarction; Z95.1 Presence of aortocoronary bypass graft; Z79.899 Other long term (current) drug therapy; Z79.82 Long term (current) use of aspirin; Z85.46 Personal history of malignant neoplasm of prostate; Z87.891 Personal history of nicotine dependence; Z79.84 Long term (current) use of oral hypoglycemic drugs
CPT/HCPCS: 25075; 01810; 82962; 88304; 88305; 88341; 88342; J7120; J2405

== ENCOUNTER → 2022-12-17 | Outpatient (CLI) | payer BC, SELFPAY ==
[2022-12-17 10:00] LABS: Absolute Lymphocyte Count 1.72 X10^3/uL (0.83-4.51); Basophil# 0.05 X10^3/uL; Basophil% 0.7 % (0-1); Eosinophil# 0.32 X10^3/uL; Eosinophils% 4.8 % (0-5); Hemoglobin 15.6 g/dL (13.0-16.5); Lymphocyte # 1.72 X10^3/ul (0.83-4.51); Lymphocyte % 25.7 % (19-41); Mean Corp Hgb Conc 33.9 g/dL (32-36); Mean Corpuscular Hgb 31.1 pg (27.0-32.0); Mean Corpuscular Volume 91.8 fL (80-94); Mean Platelet Vol. 11.1 fl (6.2-12.0); Monocyte# 0.58 X10^3/uL; Monocyte% 8.7 % (0-10); NRBC Flagged by Analyzer 0 % (0-5); Neutrophil # 4.02 X10^3/uL (2.7-7.7); Platelet Count 183 K/mm3 (150-450); RBC Distribution Width CV 12.4 % (11.6-14.6); RBC Distribution Width SD 41.9 fl (35.1-43.9); Red Blood Count 5.01 M/mm3 (4.6-6.2); White Blood Count 6.7 K/mm3 (4.4-11.0)
[2022-12-17 10:35] LABS: Hemoglobin A1c 7.5 % (3.8-5.6); Microalbumin,Random Urine 9.1 mg/L (NO RANGE EST.)
[2022-12-17 10:48] LABS: ALB/GLOB Ratio 1.2 RATIO (0.9-2.4); AST(SGOT) 21 U/L (15-37); Alanine Aminotransfer ALT/SGPT 42 U/L (16-61); Albumin, Serum 3.7 g/dL (3.2-5.0); Alkaline Phosphatase 93 U/L (45-117); Anion Gap 9 (5-15); BUN 17 mg/dL (7-18); BUN/Creat Ratio 19.6 RATIO (10-20); Calcium,Total 9.5 mg/dL (8.5-10.1); Chloride 107 mmol/L (98-107); Cholesterol 119 mg/dL (200); Creatinine, Serum 0.87 mg/dL (0.70-1.30); EST Glomerular Filtration Rate 94 mL/min (>60); Est Glom Filt Rate - Afr Amer 114 mL/min (>60); Globulin 3.1 g/dL (2.2-4.2); Glucose 168 mg/dL (74-106); High Density Lipoprotein 37 mg/dL; Potassium 4.2 mmol/L (3.5-5.1); Protein, Total 6.8 g/dL (6.4-8.2); Sodium Level 140 mmol/L (136-145); Thyroid Stim Hormone (TSH) 2.79 uIU/mL (0.358-3.74); Triglycerides 89 mg/dL; Very Low Density Lipoprotein 18 mg/dL (5-40)
== END | disposition home or self-care (01) ==
LOC: MTLAB 08:00
PROVIDERS: PCP Internal Medicine; Referring Provider Internal Medicine; Visit Provider Internal Medicine
DX: C61 Malignant neoplasm of prostate (principal); E11.9 Type 2 diabetes mellitus without complications; I51.9 Heart disease, unspecified; Z95.1 Presence of aortocoronary bypass graft; I10 Essential (primary) hypertension; E78.5 Hyperlipidemia, unspecified; Z13.220 Encounter for screening for lipoid disorders
CPT/HCPCS: 36415; 80053; 80061; 82043; 83036; 84443; 85025

== ENCOUNTER 2023-06-05 07:46 | Day surgery (SDC) | payer BC, SELFPAY ==
--- NOTE | 2023-05-29 12:49 | EKG12_ITS ---
Test Reason : PRE-OP Blood Pressure : / mmHG Vent. Rate : 066 BPM Atrial Rate : 066 BPM P-R Int : 162 ms QRS Dur : 082 ms QT Int : 388 ms P-R-T Axes : 000 -33 083 degrees QTc Int : 406 ms Normal sinus rhythm Left axis deviation Abnormal ECG Confirmed by HOLLIE SERRANO, DEQUAN ([id number]), industrial editor ROXANN GUSTAFSON ([id number]) on 05/30/2023 10:10:18 AM Referred By: Aly Fraire Confirmed By:DEQUAN BROWNE MD
[2023-05-29 13:35] LABS: Hematocrit 46.1 % (40-54); Hemoglobin 15.8 g/dL (13.0-16.5); Mean Corp Hgb Conc 34.3 g/dL (32-36); Mean Corpuscular Hgb 31.4 pg (27.0-32.0); Mean Corpuscular Volume 91.7 fL (80-94); Mean Platelet Vol. 10.7 fl (6.2-12.0); Platelet Count 206 K/mm3 (150-450); RBC Distribution Width CV 12.4 % (11.6-14.6); RBC Distribution Width SD 41.6 fl (35.1-43.9); Red Blood Count 5.03 M/mm3 (4.6-6.2); White Blood Count 6.2 K/mm3 (4.4-11.0)
[2023-05-29 14:00] LABS: Anion Gap 3 (5-15); BUN 20 mg/dL (7-18); BUN/Creat Ratio 16.5 RATIO (10-20); Calcium,Total 9.7 mg/dL (8.5-10.1); Chloride 105 mmol/L (98-107); Creatinine, Serum 1.21 mg/dL (0.70-1.30); EST Glomerular Filtration Rate 64 mL/min (>60); Est Glom Filt Rate - Afr Amer 77 mL/min (>60); Glucose 150 mg/dL (74-106); Potassium 4.5 mmol/L (3.5-5.1); Sodium Level 140 mmol/L (136-145)
[2023-05-29 18:23] LABS: Hemoglobin A1c 7.6 % (3.8-5.6)
[2023-06-05] VITALS (7 sets, daily range): BP systolic 122–136; BP diastolic 77–85; PULSE 56–67; RESP 16–18; TEMP 36.2–36.7; O2SAT 94–99; BMI 24.9
[2023-06-05] MEDS: Lactated Ringers 1,000 ML 15 ML IV (08:47)
[2023-06-05 09:11] LABS: Bedside Glucose 162 mg/dL (74-106)
--- NOTE | 2023-06-05 09:11 | HP.PCM_ITS ---
History and Physical Date of Admission: 06/05/23 Intake Vital Signs 04/24/2313:04 05/19/2308:45 Height 5 ft 6 in 5 ft 6 in Weight: 156 lb 4 oz 156 lb BMI 25.2 25.2 BP 115/77 146/80 H Blood Pressure Location Lt brachial Rt brachial Position Sitting Sitting Respiration 16 16 Pulse 58 L Pulse Source Monitor Temp 98.0 F Temp Source Temporal Pulse Oximetry (%) 93 Oxygen Delivery Method room air Intake Visit Reasons: INGUINAL HERNIA Chief Complaint: left groin, noticed 2-3 weeks [facility] [employer] Department Supervisor Required: No Is patient in pain?: No Allergies Environmental Allergies: Uncoded Adverse Reaction (Intermediate, Verified 05/19/23 08:46) Other Medications aspirin 81 mg tablet,delayed release (Adult Aspirin Regimen) 81 mg PO DAILY 08/23/19 [History Confirmed 05/19/23] [id number]-tfarf 300 mcg-K 60 mcg-lycop 600 mcg-lutein 300 mcg tablet (Centrum Silver Men) 1 tab PO DAILY 08/23/21 [History Confirmed 05/19/23] amlodipine 10 mg tablet 10 mg PO DAILY #90 tabs 07/29/22 [Rx Confirmed 05/19/23] dextrin 3 gram/3.5 gram oral powder (Fiber (dextrin)) 3 g PO TID 09/18/22 [History Confirmed 05/19/23] atorvastatin 80 mg tablet 80 mg PO QHS #90 tabs 03/18/23 [Rx Confirmed 05/19/23] metoprolol tartrate 25 mg tablet 25 mg PO BID #180 tabs 03/18/23 [Rx Confirmed 05/19/23] benazepril 40 mg tablet 40 mg PO QHS #90 tabs 04/18/23 [Rx Confirmed 05/19/23] omeprazole 10 mg capsule,delayed release 10 mg PO .COMPLEX 04/24/23 [History Confirmed 05/19/23] metformin 500 mg tablet 500 mg PO BID #180 tabs 05/15/23 [Rx Confirmed 05/19/23] PFSH Medical History Alcohol use Atherosclerosis of coronary artery of [place] heart without angina pectoris Back problem Cancer Cardiology follow-up encounter Diabetes Dietary restriction Essential (primary) hypertension Former smoker Ganglion cyst of dorsum of right wrist Gastric reflux GERD (gastroesophageal reflux disease) Headache, migraine Heart disease Hemoglobin A1c between 7.0% and 9.0% History of echocardiogram History of stress test Hyperlipidemia Hypertension Mass of soft tissue of wrist Old anterior wall myocardial infarction (05/23/13) Prostate cancer Thoracic aortic aneurysm (TAA) Type 2 diabetes mellitus Vascular leiomyoma Wears glasses Surgical History Cyst H/O coronary artery bypass surgery (05/26/13) History of coronary angioplasty (05/23/13) History of excision of lesion History of prostatectomy (2016) Hx of surgical procedure Family History Father CAD (coronary artery disease) Social History Smoking Status: Former smoker alcohol intake: current alcohol intake frequency: a few times a month Alcohol type: beer details: Beer 2 a week substance use type: does not use caffeine: Yes Type: coffee Number of servings: 1 what type of physical activity do you participate in: walking frequency: 5-6 times per week HPI HPI HPI: The patient is here for left groin swelling. He says has been going on for few months. He says that he is able to massage it back in place. He also has an umbilical hernia that has been there for many years. He is not describing any pain on the opposite side. Patient denies any fevers or chills or nausea or vomiting. There is no acute pain at the hernia currently. ROS General General: No weight change, appetite, fatigue, colon cancer, breast cancer or weakness HEENT HEENT: No difficulty swallowing, eye injury, eye surgery, swollen glands or hoarseness Endo Endocrine: Yes diabetes mellitus; No thyroid disease, thyroid cancer, Hair loss, heat intolerance or cold intolerance Skin Skin: No rash or changing moles Breast Breast: No left breast lump, right breast lump, nipple discharge, breast pain, abnormal mammogram, abnormal US or breast enlargement Musc Musculoskeletal: No back problems, arthritis, rheumatoid arthritis, gout or joint pain Cardio Cardiovascular: Yes heart disease, high blood pressure and heart attack; No murmur, pacemaker, atrial fibrillation, heart stent, palpitations, shortness of breat with exertion or chest pain Psych Psychiatric: No depression, anxiety or hearing voices Resp Respiratory: No shortness of breath, No sleep apnea, No cough, No COPD, No asthma, No emphysema and No wheezing Gastro Gastrointestinal: No abdominal pain, No nausea or vomiting, No diarrhea, No constipation, No blood in stool, Yes acid reflux, No hemorrhoids, No ulcers, No gallbladder problem and No black,tarry stools Eric Hematologic: Yes blood thinners, No blood disorders, No bleeding, No anemia and No blood clots Neuro Neurologic: No system reviewed and no additional complaints, except as documented, No as per HPI, No abnormal gait, No abnormal hearing, No abnormal movements, No abnormal speech, No behavioral changes, No burning sensations, No confusion, No convulsions, No disequilibrium, No dizziness, No localized weakness, No frequent falls, No headache(s), No lack of coordination, No loss of vision, No memory loss, No numbness, No other visual disturbances, No radicular pain, No restless legs, No sensory deficit, No syncope, No tingling, No tremor(s), No weakness and No other Exam Const General: cooperative Orientation: alert and oriented x3 [facility] Head: normal to inspection Neck Neck: normal visual inspection and full ROM Chest Chest palpation & inspection: normal inspection of the chest Resp Effort & Inspection: normal respiratory effort Auscultation: clear to auscultation bilaterally Cardio Rate: regular rate Rhythm: regular rhythm GI Inspection: non-distended Palpation: soft, hernia indirect inguinal on the left and umbilical and nontender Skin General: no rashes or lesions noted Neuro General: patient alert and patient oriented x3 Extrem General: full ROM Psych Appearance: grossly normal Mental Status: mental status grossly normal Assessment and Plan Assessment and Plan (1) Umbilical hernia: Status: Acute Qualifiers: Obstruction and gangrene presence: without obstruction or gangrene Qualified Code(s): K42.9 - Umbilical hernia without obstruction or gangrene (2) Reducible left inguinal hernia: Status: Acute Plan The patient has an umbilical hernia and a left inguinal hernia. I discussed robotic assisted laparoscopic inguinal hernia repair with mesh. I also discussed repairing his umbilical hernia. I discussed mesh placement and I dis cussed the risks of the procedure such as bleeding, infection, injury to other organ such as the bowel, bladder, ureter or blood supply the testicle. Patient understands the risks and is willing to proceed. If there is a hernia on the abscess that he would like that repaired. Patient will hold his aspirin for 5 days prior to the procedure. Aly Fraire MD Pager: [facility] [address] [place] [address], [address] [place] [address] Office: I have examined the patient and the H&P has been reviewed. There are no clinical changes since date of exam.
[2023-06-05] MEDS: Cefazolin 2 GM in 0.9% Normal Saline (100mL Bag) 100 ML IV (09:21)
[2023-06-05] MEDS: Bupivacaine Mpf 0.5% 30 ML VIAL (10:45)
--- NOTE | 2023-06-05 10:55 | OP.PCM_ITS ---
Report of Operation Date of Procedure: 06/05/23 Pre-Operative Diagnosis: Left inguinal hernia, umbilical hernia Post-Operative Diagnosis: Same Surgery/Procedure Performed:: Robotic assisted laparoscopic left inguinal hernia repair with mesh with repair of umbilical hernia Type of Anesthesia: General/Regional Estimated Blood Loss (mL): 10 Description of Procedure: Patient was brought back to the operating room and general anesthesia was induced. The abdomen was prepped and draped in usual sterile fashion. A curvilinear incision was made superior to the umbilicus at the hernia. The yaritza ia sac was entered and the contents were reduced. The hernia sac was dissected free. Port was placed into the abdomen and the abdomen was insufflated. Under direct visualization an 8 mm port was placed in the right lateral sidewall and left lateral sidewall. Next using the lateral sidewalls the adhesions from the omentum to the anterior abdominal wall at the umbilicus were taken down. Once the adhesions were taken down the robot was docked and the patient was placed in Trendelenburg position. Using electrocautery scissors an incision was made in the left inguinal peritoneum. Dissection was carried inferiorly until the hernia sac was encountered. The hernia sac was reduced. Dissection was carried posteriorly and then a large piece of ProGrip mesh was unfolded over the left inguinal region. It completely cover the defect with good overlap. Next the peritoneum was reapproximated using a running 3 OV lock suture. There is a small hole in the peritoneum which was closed with 3-0 Vicryl. The mesh was completely covered at the end of the case. The omentum was inspected 1 more and appeared to be hemostatic. The robot was undocked and the ports were removed and the air was allowed to desufflate from the abdomen. The umbilical hernia was closed with a [id number] 0 Vicryl suture. It was very small. The skin incisions were injected with local anesthetic. The skin incisions were closed with interrupted 4-0 Monocryl sutures. Steri-Strips and bandages were applied. Scrotum was checked in the case and contain both testicles. Grafts/Implants Used: ProGrip mesh in the left groin Admit VTE Documentation VTE Mechan Device Prophylaxis: SCD's
--- NOTE | 2023-06-05 10:58 | DCINST_ITS ---
Discharge Instructions Diet Discharge Diet: Light diet - advance as tolerated Activity Discharge Activity: May Not Drive (for 2-3 days or while taking narcotic pain meds.) and May Shower (with the bandage in place 1-2 days after surgery.) Lifting Restrictions: 20 pounds for 4 weeks Additional Activity Instructions:: Climbing stairs is fine, walking is encouraged. Sitting in bed may be uncomfortable. Sitting up using your lateral muscles (sitting up sideways) is usually more comfortable. Do not drive, work heavy equipment or sign legal documents for 24 hours. If your hernia repair was an inguinal repair, you may have scrotal swelling, an ice pack and/or athletic support can provide more comfort. Pain medications may cause nausea, you should typically eat light foods as you take your pain medications. Pain medications may also cause constipation. If you have difficulty with this, discuss with your doctor. Dressing / Incision Call your doctor if your incision/area has: Continuous Slow Oozing, Sudden Increased Bleeding, Increased Pain/ Swelling, Increased Redness and Foul Smelling Discharge Call your doctor if you observe: Fever of 101 or Higher Suture Line Care: Avoid Pulling/Pushing and Avoid Pinching/Bending Remove Dressing in: 2 days (Remove clear bandages in 2 days, remove Steri-Strips in 7 to 10 days.) Follow Up Care Please Follow Up With: Aly Fraire MD When: Please call to schedule 2 week follow up appointment. [phone] Test Results: Test results from this visit will be discussed in further detail at your follow- up appointment, if applicable. Discharge Plan Admission Attending Provider: Aly Fraire Primary Care Provider: Jessica Dan Discharge Orders/Prescriptions Prescriptions: New oxycodone 5 mg tablet 5 - 10 mg PO Q6H PRN (Reason: pain) 3 Days Qty: 5 0RF No Action aspirin [Adult Aspirin Regimen] 81 mg tablet,delayed release (DR/EC) 81 mg PO DAILY Patient Comments: STOP 3 DAYS PRIOR Centrum Silver Men 300-600-300 mcg tablet 1 tab PO DAILY omeprazole 10 mg capsule,delayed release(DR/EC) 10 mg PO .COMPLEX Rx Instructions: 10 mg orally 2x week; Fiber (dextrin) 3 gram/3.5 gram Powder 3 g PO BID amlodipine 10 mg tablet 10 mg PO DAILY Qty: 90 3RF metoprolol tartrate 25 mg tablet 25 mg PO BID Qty: 180 3RF atorvastatin 80 mg tablet 80 mg PO QHS Qty: 90 3RF benazepril 40 mg tablet 40 mg PO QHS Qty: 90 3RF metformin 500 mg tablet 500 mg PO BID Qty: 180 3RF Referrals / Follow Up: Jessica Dan MD [Primary Care Provider] - Disposition Disposition (needs filled in before D/C Order can be placed): Home, Self Care
[2023-06-05 11:26] LABS: Bedside Glucose 193 mg/dL (74-106)
[2023-06-05] MEDS: Ibuprofen 200 MG Tablet 600 MG PO (11:51)
[2023-06-05] MEDS: Acetaminophen 325 MG Tablet 650 MG PO (12:47)
== END 2023-06-05 13:26 | disposition home or self-care (01) ==
LOC: SDC 07:47 → AC 07:49
PROVIDERS: Anesthesiology; PCP Internal Medicine; Referring Provider Surgery; Visit Provider Surgery
PROC: 0YQ64ZZ Repair Left Inguinal Region, Percutaneous Endoscopic Approach (ICD-10-PCS; CPT 49650; principal; 2023-06-05 09:05)
DX: K42.9 Umbilical hernia without obstruction or gangrene (principal); E11.9 Type 2 diabetes mellitus without complications; K40.90 Unilateral inguinal hernia, without obstruction or gangrene, not specified as recurrent; I25.10 Atherosclerotic heart disease of native coronary artery without angina pectoris; I10 Essential (primary) hypertension; Z87.891 Personal history of nicotine dependence; Z79.84 Long term (current) use of oral hypoglycemic drugs; E78.5 Hyperlipidemia, unspecified; Z79.01 Long term (current) use of anticoagulants; K66.0 Peritoneal adhesions (postprocedural) (postinfection); Z79.82 Long term (current) use of aspirin; Z79.899 Other long term (current) drug therapy
CPT/HCPCS: 49650; S2900; 00840; 36415; 80048; 82962; 83036; 85027; 93005; J7120; J2405

== ENCOUNTER → 2023-06-17 | Outpatient (CLI) | payer MEDICARE, BC, SELFPAY ==
[2023-06-17 12:17] LABS: Absolute Lymphocyte Count 1.65 X10^3/uL (0.83-4.51); Absolute Neutrophil Count 4.1 X10^3/uL (2.0-7.7); Basophil# 0.07 X10^3/uL; Basophil% 1.1 % (0-1); Eosinophil# 0.37 X10^3/uL; Eosinophils% 5.6 % (0-5); Hematocrit 45.3 % (40-54); Hemoglobin 15.2 g/dL (13.0-16.5); Lymphocyte # 1.65 X10^3/ul (0.83-4.51); Lymphocyte % 25.2 % (19-41); Mean Corp Hgb Conc 33.6 g/dL (32-36); Mean Corpuscular Volume 92.4 fL (80-94); Mean Platelet Vol. 10.4 fl (6.2-12.0); Monocyte% 6.1 % (0-10); NRBC Flagged by Analyzer 0 % (0-5); Neutrophil # 4.05 X10^3/uL (2.7-7.7); Neutrophil % 61.7 % (47-70); Platelet Count 228 K/mm3 (150-450); RBC Distribution Width CV 12.2 % (11.6-14.6); RBC Distribution Width SD 41.6 fl (35.1-43.9); White Blood Count 6.6 K/mm3 (4.4-11.0)
[2023-06-17 12:41] LABS: ALB/GLOB Ratio 1.1 RATIO (0.9-2.4); AST(SGOT) 19 U/L (15-37); Alanine Aminotransfer ALT/SGPT 36 U/L (16-61); Albumin, Serum 3.7 g/dL (3.2-5.0); Alkaline Phosphatase 87 U/L (45-117); Anion Gap 3 (5-15); BUN 14 mg/dL (7-18); BUN/Creat Ratio 14.1 RATIO (10-20); Calcium,Total 9.6 mg/dL (8.5-10.1); Chloride 106 mmol/L (98-107); Cholesterol 126 mg/dL (200); Creatinine, Serum 0.99 mg/dL (0.70-1.30); EST Glomerular Filtration Rate 81 mL/min (>60); Est Glom Filt Rate - Afr Amer 98 mL/min (>60); Globulin 3.3 g/dL (2.2-4.2); Glucose 170 mg/dL (74-106); High Density Lipoprotein 37 mg/dL; Potassium 4.3 mmol/L (3.5-5.1); Sodium Level 138 mmol/L (136-145); Triglycerides 110 mg/dL; Very Low Density Lipoprotein 22 mg/dL (5-40)
[2023-06-17 13:38] LABS: Hemoglobin A1c 7.6 % (3.8-5.6)
== END | disposition home or self-care (01) ==
LOC: MTLAB 09:16
PROVIDERS: PCP Internal Medicine; Referring Provider Internal Medicine; Visit Provider Internal Medicine
DX: I10 Essential (primary) hypertension (principal); E78.5 Hyperlipidemia, unspecified; Z13.220 Encounter for screening for lipoid disorders; R73.9 Hyperglycemia, unspecified
CPT/HCPCS: 36415; 80053; 80061; 83036; 85025

== ENCOUNTER → 2023-11-17 | Outpatient (CLI) | payer MEDICARE, BC, SELFPAY ==
[2023-11-17 11:08] LABS: PSA,Total- Diagnostic < 0.01 ng/mL (0.0-4.0)
[2023-11-17 11:18] LABS: Hemoglobin A1c 9.6 % (3.8-5.6)
== END | disposition home or self-care (01) ==
LOC: MTLAB 07:07
PROVIDERS: PCP Internal Medicine; Referring Provider Internal Medicine; Visit Provider Internal Medicine
DX: C80.1 Malignant (primary) neoplasm, unspecified (principal); E11.65 Type 2 diabetes mellitus with hyperglycemia; N40.0 Benign prostatic hyperplasia without lower urinary tract symptoms
CPT/HCPCS: 36415; 83036; 84153

== ENCOUNTER → 2024-02-05 | Outpatient (CLI) | payer MEDICARE, BC, SELFPAY ==
--- NOTE | 2024-02-05 16:40 | CT_ITS ---
EXAM: CT ANGIOGRAPHY CHEST WITHOUT AND WITH INTRAVENOUS CONTRAST CLINICAL INDICATION: TAA . History of prostate carcinoma and prostatectomy. Diabetes. Hypertension. TECHNIQUE: Helically acquired angiography images were obtained of the chest without and with intravenous contrast. This CT exam was performed using one or more of the following dose reduction techniques: automated exposure control, adjustment of the mA and/or kV according to patient size, and/or use of iterative reconstruction technique. MIP reconstructed images were created and reviewed. CONTRAST: IV 100mL Isovue-370 RADIATION DOSE: CTDIvol = 7.10 mGy, DLP = 266.83 mGy-cm COMPARISON: CTA chest 08/31/2021. FINDINGS: PULMONARY ARTERIES: Unremarkable. Normal in caliber. No evidence of pulmonary embolism. AORTA: Mild dilatation of the ascending aorta with a diameter of 3.8 cm. No evidence of dissection. GREAT VESSELS OF AORTIC ARCH: Unremarkable. Normal in caliber. No evidence of dissection. RENAL ARTERIES: 50% stenosis of the right renal artery with poststenotic dilatation. Calcified plaques without significant stenosis of the left renal artery. No demonstrated narrowing of the celiac artery and SMA. LUNGS AND PLEURAL SPACES: Calcified granuloma in the right upper lobe. Small calcified granuloma in the left upper lobe. No suspicious pulmonary nodules or infiltrates. No pleural effusion or thickening. No pneumothorax. HEART: Sternal wires from CABG procedure. Heart size is normal. No pericardial effusion. No significant coronary artery calcifications. MEDIASTINUM: Unremarkable. No mediastinal or hilar adenopathy. Esophagus is unremarkable. No hiatal hernia. THYROID: Unremarkable. No thyroid lesions. BONES/JOINTS: Pronounced T12-L1 disc space height narrowing with prominent anterior and left lateral marginal spurs. No suspicious acute fractures. No lytic or blastic lesions. LIVER: Small low-attenuation lesion in segment 7 of the liver parenchyma is too small to confirm cystic or solid. GALLBLADDER AND BILE DUCTS: Small calcified gallstones inside nondilated gallbladder fossa. CT/CTA Chest W/WO Contrast IMPRESSION: 1. No CTA evidence of pulmonary thromboemboli, thoracic aortic aneurysm or dissection. 2. No suspicious pneumonia or acute cardiopulmonary pathology. 3. A few small calcified gallstones inside nondilated gallbladder fossa. These were present previously. 4. 1 cm low-attenuation lesion in segment 7 of the liver parenchyma is too small to confirm cystic or solid. This is stable and unchanged when compared to 08/31/2021. Electronically Signed: Max Brown MD at 11:10 EDT ,
[2024-02-05 17:02] LABS: CREATININE FINGERSTICK < 1.0 mg/dL (0.70-1.30); EGFR FINGERSTICK > 60.0000 mL/min (>60)
== END | disposition home or self-care (01) ==
LOC: CT 16:38
PROVIDERS: PCP Internal Medicine; Referring Provider Internal Medicine Cardiovascular Disease; Visit Provider Internal Medicine Cardiovascular Disease
DX: Z01.812 Encounter for preprocedural laboratory examination (principal); I71.20 Thoracic aortic aneurysm, without rupture, unspecified
CPT/HCPCS: 71275; Q9967

== ENCOUNTER → 2024-02-06 | Outpatient (CLI) | payer MEDICARE, BC, SELFPAY ==
--- NOTE | 2024-02-06 10:12 | STRESSREP_ITS ---
Stress Test Report Exercise myocardial perfusion stress test. 63-year-old man with a history of coronary artery disease Stress protocol: Resting EKG demonstrates normal sinus rhythm with a rate of 62 bpm resting blood pressure is 132/84 mmHg. The patient exercised according to the regular Lizandro protocol for a total duration of 11 minutes and 24 seconds attaining a maximum heart rate of 130 bpm which was 83% of maximum predicted heart rate; the maximum workload was 13.4 metabolic equivalents. At rest there were no ST or T wave changes noted to suggest ischemia and at peak exercise upsloping ST changes only were noted which did not meet the criteria for ischemia. No clinical angina was noted the test was terminated due to the target heart rate being achieved/fatigue. The peak blood pressure was 154/70 mmHg. Rate-pressure product was 17,700. Myocardial perfusion protocol. 11.4 mCi of technetium 99m sestamibi was injected at rest. The patient e xercised according to regular Lizandro protocol for total duration of 11 minutes and 24 seconds and at peak exercise 34.2 mCi of technetium 99m sestamibi was injected stress images were obtained stress and rest images were reconstructed in comparing the short axis vertical long and horizontal long axis. Gated images were also obtained. Perfusion SPECT analysis: Review of the stress images demonstrate normal uptake of tracer noted in all areas of the myocardium. A small defect at the apex is noted. Small apical defect is noted which is persistent suggestive of a previous small apical infarct. No ischemia is noted. Gated SPECT analysis: The gated ejection fraction is 67%. Conclusion: Normal exercise myocardial perfusion stress test at a high workload with a small previous apical infarct Preserved ejection fraction.
== END | disposition home or self-care (01) ==
LOC: CVS 06:04
PROVIDERS: PCP Internal Medicine; Referring Provider Internal Medicine Cardiovascular Disease; Visit Provider Internal Medicine Cardiovascular Disease
DX: I25.10 Atherosclerotic heart disease of native coronary artery without angina pectoris (principal); Z95.1 Presence of aortocoronary bypass graft
CPT/HCPCS: 78452; 93017; A9500; A4216

== ENCOUNTER → 2024-03-03 | Outpatient (CLI) | payer MEDICARE, BC, SELFPAY ==
[2024-03-03 10:54] LABS: AST(SGOT) 24 U/L (15-37); Alanine Aminotransfer ALT/SGPT 39 U/L (16-61); Albumin, Serum 3.7 g/dL (3.2-5.0); Alkaline Phosphatase 74 U/L (45-117); Anion Gap 7 (5-15); BUN 20 mg/dL (7-18); BUN/Creat Ratio 20.7 RATIO (10-20); Bilirubin, Direct 0.23 mg/dL (0.00-0.30); Calcium,Total 9.2 mg/dL (8.5-10.1); Chloride 107 mmol/L (98-107); Cholesterol 102 mg/dL (200); Creatinine, Serum 0.96 mg/dL (0.70-1.30); EST Glomerular Filtration Rate 83 mL/min (>60); Est Glom Filt Rate - Afr Amer 100 mL/min (>60); Glucose 155 mg/dL (74-106); High Density Lipoprotein 43 mg/dL; Protein, Total 6.7 g/dL (6.4-8.2); Sodium Level 139 mmol/L (136-145); Triglycerides 73 mg/dL; Very Low Density Lipoprotein 15 mg/dL (5-40)
[2024-03-03 11:47] LABS: Hemoglobin A1c 6.8 % (3.8-5.6)
== END | disposition home or self-care (01) ==
LOC: MTLAB 07:09
PROVIDERS: Internal Medicine Cardiovascular Disease; PCP Internal Medicine; Referring Provider Internal Medicine; Visit Provider Internal Medicine
DX: R73.9 Hyperglycemia, unspecified (principal); E78.5 Hyperlipidemia, unspecified; I71.20 Thoracic aortic aneurysm, without rupture, unspecified; Z95.1 Presence of aortocoronary bypass graft
CPT/HCPCS: 36415; 80048; 80061; 80076; 83036

== ENCOUNTER → 2024-05-24 | Outpatient (CLI) | payer MEDICARE, BC, SELFPAY ==
[2024-05-24 11:06] LABS: Absolute Lymphocyte Count 1.85 X10^3/uL (0.83-4.51); Absolute Neutrophil Count 3.7 X10^3/uL (2.0-7.7); Basophil# 0.03 X10^3/uL; Basophil% 0.5 % (0-1); Eosinophils% 6.2 % (0-5); Hematocrit 46.1 % (40-54); Hemoglobin 15.2 g/dL (13.0-16.5); Lymphocyte # 1.85 X10^3/ul (0.83-4.51); Lymphocyte % 28.7 % (19-41); Mean Corpuscular Hgb 30.6 pg (27.0-32.0); Mean Corpuscular Volume 92.8 fL (80-94); Mean Platelet Vol. 11.8 fl (6.2-12.0); Monocyte% 7.8 % (0-10); NRBC Flagged by Analyzer 0 % (0-5); Neutrophil # 3.65 X10^3/uL (2.7-7.7); Neutrophil % 56.6 % (47-70); Platelet Count 174 K/mm3 (150-450); RBC Distribution Width CV 13.1 % (11.6-14.6); RBC Distribution Width SD 43.9 fl (35.1-43.9); Red Blood Count 4.97 M/mm3 (4.6-6.2); White Blood Count 6.4 K/mm3 (4.4-11.0)
[2024-05-24 11:14] LABS: ALB/GLOB Ratio 1.2 RATIO (0.9-2.4); AST(SGOT) 17 U/L (15-37); Alanine Aminotransfer ALT/SGPT 32 U/L (16-61); Albumin, Serum 3.8 g/dL (3.2-5.0); Alkaline Phosphatase 82 U/L (45-117); Anion Gap 8 (5-15); BUN 17 mg/dL (7-18); BUN/Creat Ratio 18.6 RATIO (10-20); Calcium,Total 9.4 mg/dL (8.5-10.1); Chloride 108 mmol/L (98-107); Cholesterol 119 mg/dL (200); Creatinine, Serum 0.91 mg/dL (0.70-1.30); EST Glomerular Filtration Rate 88 mL/min (>60); Est Glom Filt Rate - Afr Amer 107 mL/min (>60); Globulin 3.1 g/dL (2.2-4.2); Glucose 176 mg/dL (74-106); High Density Lipoprotein 43 mg/dL; Potassium 4.3 mmol/L (3.5-5.1); Protein, Total 6.9 g/dL (6.4-8.2); Sodium Level 140 mmol/L (136-145); Triglycerides 91 mg/dL; Very Low Density Lipoprotein 18 mg/dL (5-40)
[2024-05-24 11:17] LABS: Hemoglobin A1c 7.7 % (3.8-5.6)
== END | disposition home or self-care (01) ==
PROVIDERS: PCP Internal Medicine; Referring Provider Internal Medicine; Visit Provider Internal Medicine
DX: I10 Essential (primary) hypertension (principal); I25.10 Atherosclerotic heart disease of native coronary artery without angina pectoris; E78.5 Hyperlipidemia, unspecified; R73.9 Hyperglycemia, unspecified; E55.9 Vitamin D deficiency, unspecified
CPT/HCPCS: 36415; 80053; 80061; 82306; 83036; 85025

== ENCOUNTER → 2024-11-18 | Outpatient (CLI) | payer MEDICARE, OTHER, SELFPAY ==
[2024-11-18 10:51] LABS: Absolute Lymphocyte Count 2.07 X10^3/uL (0.83-4.51); Absolute Neutrophil Count 3.4 X10^3/uL (2.0-7.7); Basophil# 0.04 X10^3/uL; Basophil% 0.6 % (0-1); Eosinophil# 0.29 X10^3/uL; Eosinophils% 4.6 % (0-5); Hematocrit 47.3 % (40-54); Hemoglobin 15.9 g/dL (13.0-16.5); Lymphocyte # 2.07 X10^3/ul (0.83-4.51); Lymphocyte % 33.1 % (19-41); Mean Corp Hgb Conc 33.6 g/dL (32-36); Mean Corpuscular Hgb 30.5 pg (27.0-32.0); Mean Corpuscular Volume 90.8 fL (80-94); Mean Platelet Vol. 10.2 fl (6.2-12.0); Monocyte# 0.48 X10^3/uL; Monocyte% 7.7 % (0-10); NRBC Flagged by Analyzer 0 % (0-5); Neutrophil # 3.37 X10^3/uL (2.7-7.7); Platelet Count 187 K/mm3 (150-450); RBC Distribution Width CV 12.6 % (11.6-14.6); RBC Distribution Width SD 41.3 fl (35.1-43.9); Red Blood Count 5.21 M/mm3 (4.6-6.2); White Blood Count 6.3 K/mm3 (4.4-11.0)
[2024-11-18 11:14] LABS: ALB/GLOB Ratio 1.8 RATIO (0.9-2.4); AST(SGOT) 21 U/L (<=37); Alanine Aminotransfer ALT/SGPT 30 U/L (<=46); Albumin, Serum 4.3 g/dL (3.4-4.8); Alkaline Phosphatase 83 U/L (40-129); Anion Gap 11 (5-15); BUN 18 mg/dL (4-19); BUN/Creat Ratio 19.1 RATIO (10-20); Calcium,Total 9.7 mg/dL (7.6-11.0); Carbon Dioxide 23.7 mmol/L (21.0-32.0); Chloride 106 mmol/L (98-108); Cholesterol 113 mg/dL (<=200); Creatinine, Serum 0.94 mg/dL (0.70-1.20); EST Glomerular Filtration Rate 89 (>60); Globulin 2.4 g/dL (2.2-4.2); Glucose 219 mg/dL (70-99); High Density Lipoprotein 35 mg/dL; Low Density Lipoprotein Calc. 65 mg/dL; Magnesium 1.9 mg/dL (1.5-2.2); Potassium 4.2 mmol/L (3.3-5.1); Protein, Total 6.7 g/dL (5.9-8.4); Sodium Level 141 mmol/L (133-145); Total Bilirubin 0.72 mg/dL (0.00-1.30); Triglycerides 64 mg/dL; Very Low Density Lipoprotein 13 mg/dL (5-40)
== END | disposition home or self-care (01) ==
LOC: MTLAB 07:52
PROVIDERS: PCP Internal Medicine; Referring Provider Internal Medicine; Visit Provider Internal Medicine
DX: I10 Essential (primary) hypertension (principal); E11.9 Type 2 diabetes mellitus without complications; E78.5 Hyperlipidemia, unspecified; Z13.220 Encounter for screening for lipoid disorders; Z95.1 Presence of aortocoronary bypass graft
CPT/HCPCS: 36415; 80053; 80061; 83735; 84443; 85025

== ENCOUNTER → 2025-03-02 | Outpatient (CLI) | payer MEDICARE, OTHER, SELFPAY ==
--- OUTSIDE RECORDS SUMMARY | 2025-03-02 07:27 | XMS RPT_ITS | CCD ---
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 Uziel Merritt Referring Provider Roof STORAGE FACILITY HOUSEKEEPER, STORAGE FACILITY HOUSEKEEPER-C Uziel Rockwell Attending Provider MD Uziel Infante Primary Care Provider Unavaila ble Uziel Merritt DO Primary Care Provider Un available Uziel Rasmussen MD Primary Care Provider MD Uziel Infante Referring Provider Unavailable Dr. Jessica Dan Primary Care Provider Dr. Jessica Dan Attending Provider [phone] Dr. Jessica Dan Referring Provider [phone] PEYTON Howard Attending Provider Unavailab UZIEL Arrington Primary Care Unavailable ALMASSI, TIBURCIO Referring Unavailable UZIEL RASMUSSEN Primary Care Unavailable ALMASSI, TIBURCIO Referring Unavailable DAYANA MOREIRA Attending Unavailable ALMASSI, TIBURCIO Referring Unavailable UZIEL RASMUSSEN Primary Care Unavailable Dr. David Miller Attending Provider [phone] Dr. Ankit Foster Attending Provider [phone] David Miller Referring Provider [phone] Dr. David Miller Other Provider [phone] Jessica Dan Primary Care Provider Dr. Jessica Dan Referring Provider [phone] Dr. David Miller Attending Provider [phone] Dr. Ankit Foster Attending Provider [phone] David Miller Referring Provider [phone] Dr. David Miller Other Provider Wilda STORAGE FACILITY HOUSEKEEPER, STORAGE FACILITY HOUSEKEEPERGersonC Noelle Castillo Attending Provider Dr. Jessica Dan Primary Care Provider Dr. Jessica Dan Attending Provider Dr. Jessica Dan Referring Provider Dr. Aly Fraire Attending Provider Dr. Ankit Foster Attending Provider Dr. Rodrigo Simmons Referring Provider Yee, Dr. Lu Referring Provider Yee, Dr. Lu Other Provider Dr. Jessica Dan Primary Care Provider Dr. Jessica Dan Attending Provider Dr. Jessica Dan Referring Provider Dr. Aly Fraire Attending Provider Dr. Ankit Foster Attending Provider Dr. Rodrigo Simmons Referring Provider Dr. Aly Fraire Referring Provider Yee, Dr. Lu Other Provider Dr. Jessica Dan MD Primary Care Provider Dr. Jessica Dan MD Attending Provider Dr. Jessica Dan MD Referring Provider Jessica Dan Primary Care Unavailable Jessica Dan Attending Unavailable Jessica Dan Primary Care Unavailable Jessica Dan Attending Unavailable Jessica Dan Primary Care Unavailable Cristian, Ankit Attending Unavailable Jessica Dan Referring Unavailable Cristian, [place] Referring Unavailable Cristian, [place] Consulting Unavailable Cristian, Ankit Attending Unavailable Jessica Dan Primary Care Unavailable Jessica Dan Primary Care Unavailable Cristian, [place] Attending Unavailable Jessica Dan Referring Unavailable Jessica Dan Primary Care Unavailable Jessica Dan Attending Unavailable Jessica Dan Referring Unavailable Jessica Dan Primary Care Unavailable Jessica Dan Attending Unavailable Jessica Dan Referring Unavailable Jessica Dan Primary Care Unavailable Jessica Dan Attending Unavailable Jessica Dan Referring Unavailable Cristian, Ankit Referring Unavailable Sy, Jessica Primary Care Unavailable Cristian, Ankit Attending Unavailable Cristian, [place] Referring Unavailable Sy, Jessica Primary Care Unavailable Cristian, Ankit Attending Unavailable Allergies Allergy Classification Reported Allergen(s) Allergy Type Date of Onset Reaction(s) Facility (5 sources) Environmental Allergies: Uncoded; Translations: [Environmental Allergies: Uncoded] Propensity to adverse reactions 3 [facility] Comment on above: grass makes patient sneeze Medications Current Medications Medication Drug Class(es) Dates Sig (Normalized) Sig (Original) amLODIPine 10 mg oral tablet (20 sources) Dihydropyridine Calcium Channel Michaelle Start: 08-23-2019 End: 07-16-2024 take 1 tablet by mouth once daily Amlodipine 10 mg tablet Active 10 mg PO DAILY July 16, 2024 12:23pm Comment on above: Take 10 mg by mouth once daily. Take 10 mg by mouth. aspirin 81 mg delayed release oral tablet (11 sources) Platelet Aggregation Inhibitor, Nonsteroidal Anti-inflammatory Drug Start: 08-23-2019 take 1 tablet by mouth once daily Aspirin (Adult Aspirin Regimen) 81 mg tablet,delayed release (DR/EC) Active 81 mg PO DAILY August 23, 2019 1:00am take 1 tablet by mouth once zainab y aspirin 81 MG tablet Take 81 mg by mouth daily 0 Active Comment on above: Take 81 mg by mouth once daily. atorvastatin 80 mg oral tablet (20 sources) HMG-CoA Reductase Inhibitor Start: 7 End: take 1 tablet by mouth at bedtime Atorvastatin 80 mg tablet Active 80 mg PO AT BEDTIME June 07, 2024 12:53pm take 1 tablet by mouth once zainab y atorvastatin (LIPITOR) 20 mg tablet Indications: Prostate cancer (HCC) , Elevated prostate specific antigen (PSA) Take 20 mg by mouth once daily. 0 Active Comment on above: Take 20 mg by mouth once daily. benazepril hydrochloride 40 mg oral tablet (20 sources) Angiotensin Converting Enzyme Inhibitor Start: 10-15-19 End: 04-14-20 take 1 tablet by mouth at bedtime Benazepril 40 mg tablet Active 40 mg PO AT BEDTIME April 14, 2024 11:32am Comment on above: Take 40 mg by mouth once daily. Take 40 mg by mouth. calcium carbonate 500 mg chewable tablet (2 sources) Start: 12-18-19 take 1 tablet by mouth twice daily Calcium Carbonate (Tums) 200 mg calcium (500 mg) tablet,chewable Active 200 MG PO TWICE A DAY December 16, 2021 11:00pm metFORMIN hydrochloride 500 mg oral tablet (20 sources) Biguanide Start: 08-23-19 End: 08-25-19 take 2 tablets by mouth once daily Metformin 500 mg tablet Discontinued 1000 mg PO DAILY August 23, 2019 1:00am August 25, 2019 2:28pm Start: 08-23-2019 End: 08-25-2019 take 1000 mg by mouth once daily Metformin Discontinued 1000 MG PO DAILY August 23, 2019 1:00am August 25, 2019 2:28pm Start: 08-05-2018 End: 05-18-2024 take 1 tablet by mouth twice daily Metformin 500 mg tablet Active 500 mg PO TWICE A DAY May 18, 2024 2:02pm metoprolol tartrate 25 mg oral tablet (20 sources) beta-Adrenergic Michaelle Start: 10-14-2016 End: 06-07-2024 take 1 tablet by mouth twice daily Metoprolol Tartrate 25 mg tablet Active 25 mg PO TWICE A DAY June 07, 2024 12:53pm Comment on above: Take 25 mg by mouth twice daily. Take 25 mg by mouth. Enecshzi-Myu-Ia-L ycopen-Lutein (Centrum Silver Men) 300-600-300 mcg tablet (5 sources) Start: 08-23-2021 take 300-600 tablets by mouth once daily Pizxmtah-Xvu-Wv- Lycopen-Lutein (Centrum Silver Men) 300-600-300 mcg tablet Active 1 TABLET PO DAILY August 23, 2021 4:00pm Start: 08-23-2021 take 300-600 tablets by mouth once daily Sdzkmwgt-Xva-Ej-Lycopen-Lutein (Centrum Silver Men) 300-600-300 mcg tablet Active 1 TABLET PO DAILY August 23, 2021 12:00am Start: 08-23-2021 take 300-600 tablets by mouth once daily Yjcywwve-Hxx-Zt-Lycopen-Lutein (Centrum Silver Men) 300-600-300 mcg tablet Active 1 TABLET PO DAILY August 23, 2021 1:00am Zz-Srb-Janol-Y1-Nzurybp-Kvdt in (Centrum Silver Men) 300-600-300 mcg tablet (4 sources) Start: 08-23-2021 Yv-Pkc-Qmizi-S1-Csjpgss-Oqsl in (Centrum Silver Men) 300-600-300 mcg tablet Active 1 {tbl} PO DAILY August 23, 2021 1:00am Start: 08-23-2021 take 300-600 tablets by mouth once daily Sd-Jvz-Ydiot-G2-Jzaepzj-Ufhjfv (Centrum Silver Men) 300-600-300 mcg tablet Active 1 TABLET PO DAILY August 23, 2021 12:00am Start: 08-23-2021 take 300-600 tablets by mouth once daily Ho-Gfg-Bjdts-M0-Skkwqzk-Zxfkdf (Centrum Silver Men) 300-600-300 mcg tablet Active 1 TABLET PO DAILY August 23, 2021 1:00am Completed/Discontinued Medications Medication Drug Class(es) Dates Sig (Normalized) Sig (Original) acetaminophen 325 mg / oxyCODONE hydrochloride 5 mg oral tablet (1 source) Opioid Agonist Start: 07-03-2016 take 1-2 tablets by mouth every four hours as needed oxyCODONE-acetamin ophen (PERCOCET) 5-325 mg tablet Take 1-2 tablets by mouth every 4 hours as needed. 10 tablet 0 07/03/2016 Active Comment on above: Take 1-2 tablets by mouth every 4 hours as needed. aspirin 81 mg / calcium carbonate 777 mg oral tablet (1 source) Platelet Aggregation Inhibitor, Nonsteroidal Anti-inflammatory Drug aspirin-calcium carbonate 81 mg-300 mg calcium(777 mg) tab Indications: Prostate cancer (HCC) Take 81 mg by mouth. 0 Active Comment on above: Take 81 mg by mouth. cefadroxil 500 mg oral capsule (6 sources) Cephalosporin Antibacterial Start: 10-04-2022 End: 11-01-2022 take 1 capsule by mouth twice daily Cefadroxil 500 mg capsule Discontinued 500 mg PO TWICE A DAY October 04, 2022 1:00am November 01, 2022 1:08pm ciprofloxacin 500 mg oral tablet (1 source) Quinolone Antimicrobial Start: 07-08-2016 take 1 tablet by mouth twice daily ciprofloxacin HCl (CIPRO) 500 mg tablet Take 1 tablet by mouth twice daily. 14 tablet 0 07/08/2016 Active Comment on above: Take 1 tablet by [facility] twice daily. Dextrin (Fiber (Dextrin)) 3 gram/3.5 gram Powder (6 sources) Start: 09-18-2022 End: 11-26-2023 Dextrin (Fiber (Dextrin)) 3 gram/3.5 gram Powder Discontinued 3 g PO TWICE A DAY September 18, 2022 1:00am November 26, 2023 11:37am Start: 09-18-2022 Dextrin (Fiber (Dextrin)) 3 gram/3.5 gram Powder Active 3 GM PO TWICE A DAY September 18, 2022 12:00am Start: 09-18-2022 Dextrin (Fiber (Dextrin)) 3 gram/3.5 gram Powder Active 3 GM PO TWICE A DAY September 18, 2022 1:00am Start: 09-18-2022 Dextrin (Fiber (Dextrin)) 3 gram/3.5 gram Powder Active 3 GM PO THREE TIMES A DAY September 18, 2022 1:00am Start: 09-18-2022 Dextrin (Fiber (Dextrin)) 3 gram/3.5 gram Powder Active 3 GM PO THREE TIMES A DAY September 18, 2022 12:00am docusate sodium 100 mg oral capsule (1 source) Start: 07-03-2016 take 1 capsule by mouth twice daily docusate sodium (COLACE) 100 mg capsule Take 1 capsule by mouth twice daily. 20 capsule 0 07/03/2016 Active Comment on above: Take 1 capsule by [facility] twice daily. hydroCHLOROthiazide (9 sources) Thiazide Diuretic Start: 05-23-2013 End: 08-23-2019 Hydrochlorothiazide Discontinued May 23, 2013 9:08am August 23, 2019 10:08pm Start: 05-23-2013 End: 08-23-2019 Hydrochlorothiazide Disconti nued May 22, 2013 11:00pm August 23, 2019 9:08pm Start: 05-23-2013 End: 08-23-2019 Hydrochlorothiazide Disconti lilian May 23, 2013 12:00am August 23, 2019 10:08pm L.Acidoph,Saliva-B.Bif-S.The rm (Acidophilus Probiotic Blend) 175 mg capsule (6 sources) Start: 10-04-2022 End: 11-01-2022 take 1 capsule by mouth once daily L.Acidoph,Saliva-B.Bif-S.Therm (Acidophilus Probiotic Blend) 175 mg capsule Discontinued 1 NMA PO DAILY October 04, 2022 1:00am November 01, 2022 1:08pm Start: 10-04-2022 End: 11-01-2022 take 1 capsule by mouth once daily L.Acidoph,Saliva-B.Bif-S.Therm (Acidophi ilya Probiotic Blend) 175 mg capsule Discontinued 1 CAP PO DAILY October 04, 2022 12:00am November 01, 2022 12:08pm Start: 10-04-2022 End: 11-01-2022 take 1 capsule by mouth once daily L.Acidoph,Saliva-B.Bif-S.Therm (Acidophi ilya Probiotic Blend) 175 mg capsule Discontinued 1 CAP PO DAILY October 04, 2022 1:00am November 01, 2022 1:08pm Start: 10-04-2022 take 1 capsule by mouth once daily L.Acidoph,Saliva-B.Bif-S.Therm (Acidophi ilya Probiotic Blend) 175 mg capsule Active 1 CAP PO DAILY October 04, 2022 12:00am Nirmatrelvir-Ritonavir (7 sources) Start: 07-24-2022 End: 09-02-2022 Nirmatrelvir-Ritonavir (Paxl ovid (Eua)) 300 mg (150 mg x 2)-100 mg tablets,dose pack Discontinued 0 PO .COMPLEX July 24, 2022 1:00am September 02, 2022 10:11am take TWO 150 mg tablets of nirmatrelvir with ONE 100 mg tablet of ritonavir twice daily for 5 days PO. Hold Atorvastatin x 7 days. Start: 07-24-2022 End: 09-02-2022 Nirmatrelvir-Ritonavir (Paxl ovid (Eua)) 300 mg (150 mg x 2)-100 mg tablets,dose pack Discontinued 0 PO .COMPLEX July 24, 2022 12:00am September 02, 2022 9:11am take TWO 150 mg tablets of nirmatrelvir with ONE 100 mg tablet of ritonavir twice daily for 5 days PO. Hold Atorvastatin x 7 days. Start: 07-24-2022 Nirmatrelvir-R itonavir (Paxlovid (Eua)) 300 mg (150 mg x 2)- 100 mg tablets,dose pack Active 0 PO .COMPLEX July 24, 2022 12:00am take TWO 150 mg tablets of nirmatrelvir with ONE 100 mg tablet of ritonavir twice daily for 5 days PO. Hold Atorvastatin x 7 days. Nirmatrelvir-Ritonavir (Paxlovid) 300 mg (150 mg x 2)-100 mg tablets,dose pack (1 source) Start: 04-27-2024 End: 05-27-2024 Nirmatrelvir-Ritonavir (Paxlovid) 300 mg (150 mg x 2)-100 mg tablets,dose pack Discontinued 0 PO .COMPLEX April 27, 2024 12:00am May 27, 2024 7:53am take TWO 150 mg tablets of nirmatrelvir with ONE 100 mg tablet of ritonavir twice daily for 5 days PO omeprazole 10 mg delayed release oral capsule (20 sources) Proton Pump Inhibitor Start: 04-24-2023 End: 11-26-2023 take 1 capsule by mouth every week Omeprazole 10 mg capsule,delayed release(DR/EC) Discontinued 10 mg PO .COMPLEX April 24, 2023 1:07pm November 26, 2023 11:37am 10 mg orally 2x week; Start: 12-02-2022 End: 04-24-2023 take 1 capsule by mouth once daily Omeprazole 10 mg capsule,delayed release(DR/EC) Discontinued 10 mg PO DAILY December 02, 2022 4:50pm April 24, 2023 1:07pm Start: 11-01-2022 End: 12-02-2022 take 1 capsule by mouth once Omeprazole 20 mg capsule, delayed release(DR/EC) Discontinued 20 mg PO MOTH November 27, 2022 7:51am December 02, 2022 1:25pm Start: 09-18-2022 End: 11-01-2022 take 2 capsules by mouth once Omeprazole 10 mg capsule ,delayed release(DR/EC) Discontinued 20 mg PO MOTH September 18, 2022 1:00am November 01, 2022 1:07pm Start: 09-18-2022 End: 11-01-2022 take 20 mg by mouth once Omeprazole Discontinued 20 M G PO MOTH September 18, 2022 1:00am November 01, 2022 1:07pm Start: 06-20-2022 take 10 mg by mouth once daily Omeprazole Active 10 MG PO DAILY 60 June 20, 2022 12:00am Start: 10-15-2016 End: 12-17-2021 take 1 capsule by mouth once daily Omeprazole 20 mg capsule,delayed release(DR/EC) Discontinued 20 mg PO DAILY August 23, 2019 1:00am December 17, 2021 1:35pm Comment on above: Take 20 mg by mouth once daily. Take 20 mg by mouth. oxyCODONE hydrochloride 5 mg oral tablet (4 sources) Opioid Agonist Start: End: take 5-10 mg by mouth every six hours as needed for pain Oxycodone 5 mg tablet Discontinued 5 - 10 mg PO EVERY 6 HOURS as needed for pain 5 June 05, 2023 2023 11:27am Problems Active Problems Problem Classification Problem Date Documented Date Episodic/Chronic Abdominal hernia (17 sources) Diaphragmatic hernia; Translations: [Diaphragmatic hernia without obstruction or gangrene] Onset: 06-21-2011 06-21-2011 Episodic Aortic; peripheral; and visceral artery aneurysms (11 sources) Aneurysm of thoracic aorta; Translations: [Thoracic aortic aneurysm, without rupture] Chronic Comment on above: The ascending thorac ic aorta is dilated measuring 4.4 cm in maximum transverse dimension. CT 08/2019 Cancer of prostate (13 sources) Malignant tumor of prostate; Translations: [Malignant neoplasm of prostate] Onset: 03-04-2016 07-01-2016 Chronic Comment on above: cc 2017 Coronary atherosclerosis and other heart disease (20 sources) Old anterior myocardial infarction ; Translations: [Old myocardial infarction] Onset: 05-23-2013 Chronic Diabetes mellitus without complication (19 sources) Type 2 diabetes mellitus; Translations: [Type 2 diabetes mellitus without complications] Onset: 11-25-2024 11-26-2018 Chronic Comment on above: ON MED Disorders of lipid metabolism (15 sources) Hyperlipidemia; Translations: [Hyperlipidemia, unspecified] Chronic Esophageal disorders (1 source) Gastroesophageal reflux disease; Translations: [Gastro-esophageal reflux disease without esophagitis] Onset: 06-21-2011 06-21-2011 Chronic Essential hypertension (17 sources) Essential hypertension; Translations: [Essential (primary) hypertension] Onset: 06-17-2016 Chronic Comment on above: CONTROLLED WITH MED Headache; including migraine (1 source) Migraine; Translations: [Migraine, unspecified, not intractable, without status migrainosus] 05-17-2011 Chronic Malignant neoplasm without specification of site (2 sources) Malignant neoplastic disease; Translations: [Malignant (primary) neoplasm, unspecified] 07-14-2023 Chronic Comment on above: PROSTATE Other and ill-defined heart disease (6 sources) Heart disease; Translations: [Heart disease, unspecified] 09-02-2022 Chronic Other and unspecified benign neoplasm (5 sources) Leiomyoma; Translations: [Benign neoplasm of connective and other soft tissue, unspecified] 10-13-2022 Episodic Comment on above: dorsum right hand by ring finger Other and unspecified benign neoplasm (2 sources) Benign neoplasm of connective and other soft tissue, unspecified; Translations: [Other benign neoplasm of connective and other soft tissue, site unspecified] 10-11-2022 Episodic Other connective tissue disease (6 sources) Synovial cyst of hand; Translations: [Other bursal cyst, unspecified hand] 08-26-2022 Episodic Other connective tissue disease (1 source) Ganglion cyst of right dorsal wrist; Translations: [Ganglion, right wrist] 09-04-2022 Episodic Other connective tissue disease (5 sources) Disorder of hand; Translations: [Cyst of hand] 08-26-2022 Episodic Other connective tissue disease (2 sources) Ganglion, right wrist; Translations: [Ganglion of joint] 09-02-2022 Episodic Other connective tissue disease (5 sources) Mass of wrist; Translations: [Other specified soft tissue disorders] 10-05-2022 Episodic Comment on above: 1.1 cm solid soft ti ssue mass dorsum right wrist by ring finger Other connective tissue disease (3 sources) Other specified soft tissue disorders; Translations: [Other disorders of soft tissue] 10-04-2022 Episodic Other connective tissue disease (1 source) Ganglion, unspecified; Translations: [Cyst of hand] 08-26-2022 Episodic Other skin disorders (4 sources) Skin lesion; Translations: [Disorder of the skin and subcutaneous tissue, unspecified] 02-20-2023 Episodic Spondylosis; intervertebral disc disorders; other back problems (6 sources) Back problem; Translations: [Dorsopathy, unspecified] 09-02-2022 Episodic Viral infection (2 sources) COVID-19; Translations: [Other specified viral infection] Episodic Past or Other Problems Problem Classification Problem Date Documented Da te Episodic/Chronic Coronary atherosclerosis and other heart disease (20 sources) Past history of procedure; Translations: [Coronary angioplasty status] Onset: 05-23-2013 Episodic Comment on above: UAE-EQIN-Zdc LAD Excision 1.1 cm santy d soft tissue mass dorsum right wrist by ring finger - 10/04/22 Diabetes mellitus without complication (13 sources) Hemoglobin A1C - diabetic control finding; Translations: [Hyperglycemia, unspecified] Onset: 03-24-2024 09-02-2022 Episodic Comment on above: 7.3 on 05/29/22 Esophageal disorders (1 source) Esophagitis; Translations: [Esophagitis, unspecified] Onset: 06-21-2011 06-21-2011 Episodic Heart valve disorders (1 source) Systolic murmur Episodic Other screening for suspected conditions (not mental disorders or infectious disease) (2 sources) Raised prostate specific antigen; Translations: [Elevated prostate specific antigen [PSA]] Onset: 03-04-2016 03-04-2016 Episodic Results Test Name Value Interpretation Reference Range Facility MR/[facility] 11-25-2024 MR/[facility] [address] [place] [address] OFFICE VISIT Date of Service: 11/25/24 MR#: [id number] Acct: [id number] Name: MATTHEW TOMLIN Rep #: [id number] : 1960 Provider: Dr. Jessica colmenares MD Age/Sex: 64/M Location: [facility] Status: Signed Intake Vital Signs 05/27/24 07:54 11/25/24 07:57 Height 5 ft 5 ft Weight: 153 lb 6 oz 151 lb BMI 29.9 29.5 BP 135/81 H 121/74 H Blood Pressure Location Lt brachial Lt brachial Position Sitting Sitting Respiration 16 16 Pulse 75 63 Pulse Source Monitor Monitor Temp 98.4 F 98.0 F Temp Source Temporal Temporal Pulse Oximetry (%) 95 95 Oxygen Delivery Method room air room air Intake Visit Reasons: 6 M FU Chief Complaint: 6 m fu Inside Sales Executive Required: No Accompanied by: Self Is patient in pain?: No Allergies Environmental Allergies: Uncoded Adverse Reaction (Intermediate, Verified 11/25/24 07:55) Other Medications ???Medication ???Instructions ???Recorded ???Confirmed ???Type aspirin 81 mg tablet,delayed 81 mg PO DAILY 08/23/19 11/25/24 H istory release (Adult Aspirin Regimen) rifgecql-dr-qcoez 300 mcg-K 60 1 tab PO DAILY 08/23/21 11/25/24 H istory mcg-lycop 600 mcg-lutein 300 mcg tablet (Centrum Silver Men) benazepril 40 mg tablet 40 mg PO QHS #90 tabs 04/14/24 Rx metformin 500 mg tablet 500 mg PO BID #180 tabs 05/18/24 0 11/25/24 Rx atorvastatin 80 mg tablet 80 mg PO QHS #90 TABLETS 06/07/24 11/25/24 Rx metoprolol tartrate 25 mg tablet 25 mg PO BID #180 TABLETS 06/07/24 11/25/24 Rx amlodipine 10 mg tablet 10 mg PO DAILY #90 tabs 07/16/24 0 11/25/24 Rx alcohol swabs #100 ea 11/25/24 11/25/24 Rx blood sugar diagnostic (OneTouch #100 ea 11/25/24 11/25/24 Rx Verio test strips) blood-glucose meter (OneTouch #1 ea 11/25/24 11/25/24 Rx Verio Flex Start kit) lancets 30 gauge (OneTouch Delica #100 ea 11/25/24 11/25/24 Rx Plus Lancet) Have you fallen in the past year?: No [facility] Medical History Inguinal hernia of left side without obstruction or gangrene Umbilical hernia Vascular leiomyoma Mass of soft tissue of wrist Wears glasses Cancer Alcohol use Diabetes Dietary restriction Gastric reflux Former smoker History of stress test History of echocardiogram Hypertension Cardiology follow-up encounter Hemoglobin A1c between 7.0% and 9.0% Ganglion cyst of dorsum of right wrist Heart disease Back problem Headache, migraine Thoracic aortic aneurysm (TAA) GERD (gastroesophageal reflux disease) Old anterior wall myocardial infarction (05/23/13) Prostate cancer Hyperlipidemia Essential (primary) hypertension Type 2 diabetes mellitus Atherosclerosis of coronary artery of [place] heart without angina pectoris Surgical History History of robot-assisted repair of left inguinal hernia Cyst History of excision of lesion Hx of surgical procedure History of coronary angioplasty (05/23/13) History of prostatectomy (2015) H/O coronary artery bypass surgery (05/26/13) Family History Father CAD (coronary artery disease) Social History Smoking Status: Former smoker alcohol intake: current alcohol intake frequency: a few times a month Alcohol type: beer details: Beer 2 a week substance use type: does not use caffeine: Yes Type: coffee Number of servings: 1 what type of physical activity do you participate in: walking frequency: 5-6 times per week HPI HPI Chief Complaint: 6 m fu Details: MATTHEW TOMLIN, is a 64 M who presents to the office today for 6-month follow-up on type 2 diabetes. Overall he is eating much better, but still feels he has a little bit of room to improve yet. He is remaining physically active at work. His A1c went up to 9.2 unfortunately. This was done here in the office, not the lab. For some unknown reason it was not completed at the lab. He has essential hypertension, hyperlipidemia and again type 2 diabetes on amlodipine, aspirin, high-dose atorvastatin, benazepril and metformin 500 p.o. twice daily as well as metoprolol 25 p.o. twice daily. He has long felt that the metformin may not be doing him a whole lot of good. He has been on it long-term. Typically his A1c though has been between 6 and 7. This is the first it has been up at this high. He was somewhat disappointed because he was opening it was actually down some because he was eating a lot better overall. Review of systems per chart. No chest pain, chest tightness, shortness of breath wheeze cough or congestion reported. Appetite is good. He is eating and drinking well. He has n (more content not included)... Normal [facility] Absolute neutrophil countOrd ered By: Jessica Dan on 11-18-2024 Neutrophils (Bld) [#/Vol] 3.4 10*3/uL 2.0-7.7 [facility] Anion gap in Serum or Plasma Ordered By: Jessica Dan on 11-18-2024 Anion gap [Moles/Vol] 11 mmol/L 5- [facility] BUN/creatinine ratioOrdered By: Jessica Dan on 11-18-2024 Urea nitrogen/Creatinine [Mass ratio] 19.1 mg/mg - [facility] Basophil percentageOrdered B y: Jessica Dan on 11-18-2024 Basophils/100 WBC (Bld) 0.6 % 0-1 [facility] Bilirubin, totalOrdered By: Jessica Dan on 11-18-2024 Bilirubin [Mass/Vol] 0.72 mg/dL 0.00-1.30 [facility] CBC W/Diff, Automatedon 11-09 Absolute Lymph 2.07 X10 3/uL Normal 0.83-4.51 [facility] Comment on above: Performed By: #### L 100.0100, L500.4100, L501.5200, L501.9520, L500.4050 #### [facility] [address] [place], [address] Absolute Neut 3.4 X10 3/uL Normal 2.0-7.7 [facility] Comment on above: Performed By: #### L 100.0100, L500.4100, L501.5200, L501.9520, L500.4050 #### [facility] [address] [place], [address] Basophils/100 WBC (Bld) 0.6 % Normal 0-1 [facility] Comment on above: Performed By: #### L 100.0100, L500.4100, L501.5200, L501.9520, L500.4050 #### [facility] [address] [place], [address] Eosinophils/100 WBC (Bld) 4.6 % Normal 0-5 [facility] Comment on above: Performed By: #### L 100.0100, L500.4100, L501.5200, L501.9520, L500.4050 #### [facility] [address] [place], [address] Erythrocyte distribution width (RBC) [Ratio] 12.6 % Normal 11.6-14.6 [facility] Comment on above: Performed By: #### L 100.0100, L500.4100, L501.5200, L501.9520, L500.4050 #### [facility] [address] [place], [address] Hematocrit (Bld) [Volume fraction] 47.3 % Normal 40-54 [facility] Comment on above: Performed By: #### L 100.0100, L500.4100, L501.5200, L501.9520, L500.4050 #### [facility] [address] [place], [address] Hemoglobin (Bld) [Mass/Vol] 15.9 g/dL Normal 13.0-16.5 [facility] Comment on above: Performed By: #### L 100.0100, L500.4100, L501.5200, L501.9520, L500.4050 #### [facility] [address] [place], [address] IG% 0.000 Normal 0.0-0.9 [facility] Comment on above: Result Comment: IG% - Immature Granulocytes (promyelocytes, myelocytes and metamyelocytes) > 1% indicates that a LEFT SHIFT is Present. Performed By: #### L 100.0100, L500.4100, L501.5200, L501.9520, L500.4050 #### [facility] [address] [place], [address] Lymphocytes/100 WBC (Bld) 33.1 % Normal 19-41 [facility] Comment on above: Performed By: #### L 100.0100, L500.4100, L501.5200, L501.9520, L500.4050 #### [facility] [address] [place], [address] MCH (RBC) [Entitic mass] 30.5 pg Normal 27.0-32.0 [facility] Comment on above: Performed By: #### L 100.0100, L500.4100, L501.5200, L501.9520, L500.4050 #### [facility] [address] [place], [address] MCHC (RBC) [Mass/Vol] 33.6 g/dL Normal 32-36 [facility] Comment on above: Performed By: #### L 100.0100, L500.4100, L501.5200, L501.9520, L500.4050 #### [facility] [address] [place], [address] MCV (RBC) [Entitic vol] 90.8 fL Normal 80-94 [facility] Comment on above: Performed By: #### L 100.0100, L500.4100, L501.5200, L501.9520, L500.4050 #### [facility] [address] [place], [address] Monocytes/100 WBC (Bld) 7.7 % Normal 0-10 [facility] Comment on above: Performed By: #### L 100.0100, L500.4100, L501.5200, L501.9520, L500.4050 #### [facility] [address] [place], [address] Neutrophils/100 WBC (Bld) 54.0 % Normal 47-70 [facility] Comment on above: Performed By: #### L 100.0100, L500.4100, L501.5200, L501.9520, L500.4050 #### [facility] [address] [place], [address] Nucleated RBC (Bld) [#/Vol] 0 10*3/uL Normal 0-5 [facility] Comment on above: Performed By: #### L 100.0100, L500.4100, L501.5200, L501.9520, L500.4050 #### [facility] [address] [place], [address] Platelet mean volume (Bld) [Entitic vol] 10.2 fL Normal 6.2-12.0 [facility] Comment on above: Performed By: #### L 100.0100, L500.4100, L501.5200, L501.9520, L500.4050 #### [facility] [address] [place], [address] Platelets (Bld) [#/Vol] 187 10*3/uL Normal 150-450 [facility] Comment on above: Performed By: #### L 100.0100, L500.4100, L501.5200, L501.9520, L500.4050 #### [facility] [address] [place], [address] RBC (Bld) [#/Vol] 5.21 10*6/uL Normal 4.6-6.2 [facility] Comment on above: Performed By: #### L 100.0100, L500.4100, L501.5200, L501.9520, L500.4050 #### [facility] [address] [place], [address] RDW SD 41.3 fl Normal 35.1-43.9 [facility] Comment on above: Performed By: #### L 100.0100, L500.4100, L501.5200, L501.9520, L500.4050 #### [facility] [address] [place], [address] WBC (Bld) [#/Vol] 6.3 10*3/uL Normal 4.4-11.0 [facility] Comment on above: Performed By: #### L 100.0100, L500.4100, L501.5200, L501.9520, L500.4050 #### [facility] [address] [place], [address] Calculated very low density lipoprotein (VLDL) cholesterol measurementOrdered By: Jessica Dan on 11-18-2024 VLDL Cholesterol 13 mg/dL 5-40 [facility] Carbon dioxide, total [Moles /volume] in Central venous bloodOrdered By: Jessica Dan on 11-18-2024 CO2 [Moles/Vol] 23.7 mmol/L 21.0-32.0 [facility] Chloride assayOrdered By: Lola Dan on 11-18-2024 Chloride [Moles/Vol] 106 mmol/L 98-108 [facility] Comprehensive Metabolic Prof ilon 11-18-2024 Albumin [Mass/Vol] 4.3 g/dL Normal 3.4-4.8 [facility] Comment on above: Performed By: #### L 100.0100, L500.4100, L501.5200, L501.9520, L500.4050 ####[facility] [address] [place], [address] Albumin/Globulin [Mass ratio] 1.8 {ratio} Normal 0.9-2.4 [facility] Comment on above: Performed By: #### L 100.0100, L500.4100, L501.5200, L501.9520, L500.4050 ####[facility] [address] [place], [address] ALK PHOS 83 U/L Normal 40-129 [facility] Comment on above: Performed By: #### L 100.0100, L500.4100, L501.5200, L501.9520, L500.4050 ####[facility] [address] [place], [address] ALT [Catalytic activity/Vol] 30 U/L Normal <=46 [facility] Comment on above: Performed By: #### L 100.0100, L500.4100, L501.5200, L501.9520, L500.4050 ####[facility] [address] [place], [address] AST [Catalytic activity/Vol] 21 U/L Normal <=37 [facility] Comment on above: Performed By: #### L 100.0100, L500.4100, L501.5200, L501.9520, L500.4050 ####[facility] [address] [place], [address] Bilirubin [Mass/Vol] 0.72 mg/dL Normal 0.00-1.30 [facility] Comment on above: Performed By: #### L 100.0100, L500.4100, L501.5200, L501.9520, L500.4050 ####[facility] [address] [place], [address] BUN/CRE 19.1 RATIO Normal 10-20 [facility] Comment on above: Performed By: #### L 100.0100, L500.4100, L501.5200, L501.9520, L500.4050 ####[facility] [address] [place], [address] Calcium [Mass/Vol] 9.7 mg/dL Normal 7.6-11.0 [facility] Comment on above: Performed By: #### L 100.0100, L500.4100, L501.5200, L501.9520, L500.4050 ####[facility] [address] [place], [address] Chloride [Moles/Vol] 106 mmol/L Normal 98-108 [facility] Comment on above: Performed By: #### L 100.0100, L500.4100, L501.5200, L501.9520, L500.4050 ####[facility] [address] [place], [address] CO2 [Moles/Vol] 23.7 mmol/L Normal 21.0-32.0 [facility] Comment on above: Performed By: #### L 100.0100, L500.4100, L501.5200, L501.9520, L500.4050 ####[facility] [address] [place], [address] Creatinine [Mass/Vol] 0.94 mg/dL Normal 0.70-1.20 [facility] Comment on above: Performed By: #### L 100.0100, L500.4100, L501.5200, L501.9520, L500.4050 ####[facility] [address] [place], [address] GAP 11 Normal 5-15 [facility] Comment on above: Performed By: #### L 100.0100, L500.4100, L501.5200, L501.9520, L500.4050 ####[facility] [address] [place], [address] GFR/1.73 sq M.predicted among non-blacks MDRD (S/P/Bld) [Vol rate/Area] 89 mL/min/{1.73_m2} Normal >60 [facility] Comment on above: Result Comment: mL/m in/1.73m2 CKD-EPI Creatinine Equation (2020) Performed By: #### L 100.0100, L500.4100, L501.5200, L501.9520, L500.4050 ####[facility] [address] [place], [address] Globulin (S) [Mass/Vol] 2.4 g/dL Normal 2.2-4.2 [facility] Comment on above: Performed By: #### L 100.0100, L500.4100, L501.5200, L501.9520, L500.4050 ####[facility] [address] [place], [address] Glucose [Mass/Vol] 219 mg/dL High 70-99 [facility] Comment on above: Performed By: #### L 100.0100, L500.4100, L501.5200, L501.9520, L500.4050 ####[facility] [address] [place], [address] Potassium [Moles/Vol] 4.2 mmol/L Normal 3.3-5.1 [facility] Comment on above: Performed By: #### L 100.0100, L500.4100, L501.5200, L501.9520, L500.4050 ####[facility] [address] [place], [address] Sodium [Moles/Vol] 141 mmol/L Normal 133-145 [facility] Comment on above: Performed By: #### L 100.0100, L500.4100, L501.5200, L501.9520, L500.4050 ####[facility] [address] [place], [address] T PROT 6.7 g/dL Normal 5.9-8.4 [facility] Comment on above: Performed By: #### L 100.0100, L500.4100, L501.5200, L501.9520, L500.4050 ####[facility] [address] [place], [address] Urea nitrogen [Mass/Vol] 18 mg/dL Normal 4-19 [facility] Comment on above: Performed By: #### L 100.0100, L500.4100, L501.5200, L501.9520, L500.4050 ####[facility] [address] [place], [address] Eosinophil percentageOrdered By: Jessica Dan on 11-18-2024 Eosinophils/100 WBC (Bld) 4.6 % 0-5 [facility] Erythrocyte distribution wid th (RBC) [Ratio]Ordered By: Jessica Dan on 11-18-2024 Erythrocyte distribution width (RBC) [Entitic vol] 41.3 fL 35.1-43.9 [facility] Erythrocyte distribution wid th ratioOrdered By: Jessica Dan on 11-18-2024 Erythrocyte distribution width (RBC) [Ratio] 12.6 % 11.6-14.6 [facility] GFR/1.73 sq M.predicted carmelo g non-blacks MDRD (S/P/Bld) [Vol rate/Area]Ordered By: Jessica Dan on 11-18-2024 Estimated GFR (MDRD) Non-Af Amer 89 >60 [facility] Comment on above: mL/min/1.73m2 CKD-EP I Creatinine Equation (2020) Hematocrit Auto (Bld) [Volum e fraction]Ordered By: Jessica Dan on 11-18-2024 Hematocrit (Bld) [Volume fraction] 47.3 % 40-54 [facility] Hemoglobin measurementOrdere d By: Jessica Dan on 11-18-2024 Hemoglobin (Bld) [Mass/Vol] 15.9 g/dL 13.0-16.5 [facility] Immature granulocytes/100 WB C Auto (Bld)Ordered By: Jessica Dan on 11-18-2024 Immature granulocytes/100 WBC (Bld) 0.000 % 0.0-0.9 [facility] Comment on above: IG% - Immature Granu locytes (promyelocytes, myelocytes and metamyelocytes) > 1% indicates that a LEFT SHIFT is Present. LDL calc ser/plasOrdered By: Jessica Dan on 11-18-2024 LDL Cholesterol, Calculated 65 mg/dL [facility] Comment on above: Eoyoveltft=573-767 m g/dL & Higher Iqub=719 mg/dL or greater Laboratory - Chemistry and C hemistry - challengeOrdered By: Jessica Dan on 11-18-2024 AST [Catalytic activity/Vol] 21 U/L <38 [facility] Lipid Profileon 11-18-2024 CHOL:HDL 3.20 Normal [facility] Comment on above: Performed By: #### L 100.0100, L500.4100, L501.5200, L501.9520, L500.4050 ####[facility] [address] [place], [address] Cholesterol [Mass/Vol] 113 mg/dL Normal <=200 [facility] Comment on above: Result Comment: Chol esterol level, Desirable <200 mg/dL Borderline high cholesterol 200-239 mg/dL High cholesterol >=240 mg/dL Recommendations of the NCEP Adult Treatment Panel for the following risk-cutoff thresholds for the [place] population. Performed By: #### L 100.0100, L500.4100, L501.5200, L501.9520, L500.4050 ####[facility] [address] [facility] [place], [address] Cholesterol in HDL [Mass/Vol] 35 mg/dL Low [facility] Comment on above: Result Comment: Sabina onal Cholesterol Education Program (NCEP) guidelines: <40 mg/dL: Low HDL-cholesterol (major risk factor for CHD) >= 60 mg/dL: High HDL-cholesterol (negative risk factor for CHD) HDL-cholesterol is affected by a number of factors, e.g. smoking, exercise, hormones, sex and age. Performed By: #### L 100.0100, L500.4100, L501.5200, L501.9520, L500.4050 ####[facility] [address] [place], [address] Cholesterol in LDL [Mass/Vol] 65 mg/dL Normal [facility] Comment on above: Result Comment: Bord kxwfya=954-027 mg/dL Higher Xkdp=989 mg/dL or greater Performed By: #### L 100.0100, L500.4100, L501.5200, L501.9520, L500.4050 ####[facility] [address] [place], [address] Cholesterol in VLDL [Mass/Vol] 13 mg/dL Normal 5-40 [facility] Comment on above: Performed By: #### L 100.0100, L500.4100, L501.5200, L501.9520, L500.4050 ####[facility] [address] [place], [address] Triglyceride [Mass/Vol] 64 mg/dL Normal [facility] Comment on above: Result Comment: The drugs N-Acetylcysteine and Metamizole may falsely depress this assay. Normal range: <150 mg/dL Borderline High: 150-199 mg/dL High: 200-499 mg/dL Very High: >500 mg/dL Performed By: #### L 100.0100, L500.4100, L501.5200, L501.9520, L500.4050 ####[facility] [address] [place], [address] Lymphocytes Auto (Unsp spec) [#/Vol]Ordered By: Jessica Dan on 11-18-2024 Lymphocytes (Bld) [#/Vol] 2.07 10*3/uL 0.83-4.51 [facility] Lymphocytes/100 WBC Auto (Un sp spec)Ordered By: Jessica Dan on 11-18-2024 Lymphocytes/100 WBC (Bld) 33.1 % 19-41 [facility] MCV (mean corpuscular volume ) determinationOrdered By: Jessica Dan on 11-18-2024 MCV (RBC) [Entitic vol] 90.8 fL 80-94 [facility] Magnesiumon 11-18-2024 Magnesium [Mass/Vol] 1.9 mg/dL Normal 1.5-2.2 [facility] Comment on above: Performed By: #### L 100.0100, L500.4100, L501.5200, L501.9520, L500.4050 ####[facility] [address] [place], [address] Magnesium (Unsp spec) [Mass/ Vol]Ordered By: Jessica Dan on 11-18-2024 Magnesium [Mass/Vol] 1.9 mg/dL 1.5-2.2 [facility] Mean corpuscular hemoglobin (MCH) determinationOrdered By: Jessica Dan on 11-18-2024 MCH (RBC) [Entitic mass] 30.5 pg 27.0-32.0 [facility] Mean corpuscular hemoglobin concentration (MCHC) determinationOrdered By: Jessica Dan on 11-18-2024 MCHC (RBC) [Mass/Vol] 33.6 g/dL 32-36 [facility] Mean platelet volume determi nationOrdered By: Jessica Dan on 11-18-2024 Platelet mean volume (Bld) [Entitic vol] 10.2 fL 6.2-12.0 [facility] Monocyte percentageOrdered B y: Jessica Dan on 11-18-2024 Monocytes/100 WBC (Bld) 7.7 % 0-10 [facility] Neutrophil percentageOrdered By: Jessica Dan on 11-18-2024 Neutrophils/100 WBC (Bld) 54.0 % 47-70 [facility] Nucleated red blood cell per centageOrdered By: Jessica Dan on 11-18-2024 Nucleated RBC/100 WBC (Bld) [Ratio] 0 % 0-5 [facility] Platelet countOrdered By: Lola Dan on 11-18-2024 Platelets (Bld) [#/Vol] 187 10*3/uL 150-450 [facility] Potassium (Unsp spec) [Mass/ Vol]Ordered By: Jessica Dan on 11-18-2024 Potassium [Moles/Vol] 4.2 mmol/L 3.3-5.1 [facility] RBC Auto (Bld) [#/Vol]Ordere d By: Jessica Dan on 11-18-2024 RBC (Bld) [#/Vol] 5.21 10*6/uL 4.6-6.2 [facility] Screening total cholesterol/ high density lipoprotein (HDL) cholesterol ratioOrdered By: Jessica Dan on 11-18-2024 Cholesterol.total/Skye sterol in HDL [Mass ratio] 3.20 {ratio} [facility] Serum creatinine measurement (mass/volume)Ordered By: Jessica Dan on 11-18-2024 Creatinine [Mass/Vol] 0.94 mg/dL 0.70-1.20 [facility] Serum globulin measurementOr dered By: Jessica Dan on 11-18-2024 Globulin (S) [Mass/Vol] 2.4 g/dL 2.2-4.2 [facility] Serum glucose measurement (m ass/volume)Ordered By: Jessica Dan on 11-18-2024 Glucose [Mass/Vol] 219 mg/dL High 70-99 [facility] Serum or plasma alanine patel otransferase (ALT) measurementOrdered By: Jessica Dan on 11-18-2024 ALT [Catalytic activity/Vol] 30 U/L <47 [facility] Serum or plasma albumin ada urement (mass/volume)Ordered By: Jessica Dan on 11-18-2024 Albumin [Mass/Vol] 4.3 g/dL 3.4-4.8 [facility] Serum or plasma albumin/glob ulin mass ratioOrdered By: Jessica Dan on 11-18-2024 Albumin/Globulin [Mass ratio] 1.8 {ratio} 0.9-2.4 [facility] Serum or plasma alkaline randa sphatase measurementOrdered By: Jessica Dan on 11-18-2024 ALP [Catalytic activity/Vol] 83 U/L 40-129 [facility] Serum or plasma calcium ada urement (mass/volume)Ordered By: Jessica Dan on 11-18-2024 Calcium [Mass/Vol] 9.7 mg/dL 7.6-11.0 [facility] Serum or plasma cholesterol in HDL measurement (mass/volume)Ordered By: Jessica Dan on 11-18-2024 Cholesterol in HDL [Mass/Vol] 35 mg/dL Low >40 [facility] Comment on above: National Cholesterol Education Program (NCEP) guidelines:<40 mg/dL: Low HDL-cholesterol (major risk factor for CHD)>= 60 mg/dL: High HDL-cholesterol (negative risk factor for CHD)HDL-cholesterol is affected by a number of factors, e.g. smoking, exercise, hormones, sex and age. Serum or plasma cholesterol measurement (mass/volume)Ordered By: Jessica Dan on 11-18-2024 Cholesterol [Mass/Vol] 113 mg/dL <201 [facility] Comment on above: Cholesterol level, D esirable <200 mg/dLBorderline high cholesterol 200-239 mg/dLHigh cholesterol >=240 mg/dLRecommendations of the NCEP Adult Treatment Panel for the following risk-cutoff thresholds for the [place] population. Serum or plasma urea nitroge n measurement (mass/volume)Ordered By: Jessica Dan on 11-18-2024 Urea nitrogen [Mass/Vol] 18 mg/dL 4-19 [facility] Sodium levelOrdered By: Tennille Dan on 11-18-2024 Sodium [Moles/Vol] 141 mmol/L 133-145 [facility] TSH DL <= 0.005 mIU/L QnOrde red By: Jessica Dan on 11-18-2024 Thyroid Stimulating Hormone (TSH) 2.580 uIU/mL 0.300-4.200 [facility] Thyroid Stim Hormone (TSH)on 11-18-2024 TSH 2.580 uIU/mL Normal 0.300-4.200 [facility] Comment on above: Performed By: #### L 100.0100, L500.4100, L501.5200, L501.9520, L500.4050 ####[facility] [address] [place], [place], [id number] Total proteinOrdered By: Shahana Dan on 11-18-2024 Protein [Mass/Vol] 6.7 g/dL 5.9-8.4 [facility] Triglycerides measurementOrd ered By: Jessica Dan on 11-18-2024 Triglyceride [Mass/Vol] 64 mg/dL <199 [facility] Comment on above: The drugs N-Acetylcy steine and Metamizole may falsely depress this assay. Normal range: <150 mg/dLBorderline High: 150-199 mg/dLHigh: 200-499 mg/dLVery High: >500 mg/dL White blood cell (WBC) count Ordered By: Jessica Dan on 11-18-2024 WBC (Bld) [#/Vol] 6.3 10*3/uL 4.4-11.0 [facility] L3300.0940on 05-29-2024 VIT D,25 HYDROX Normal [facility] Comment on above: Order Comment: ARABELLA LEARY SPECIMEN TO REFERENCE LABORATORY Result Comment: TEST RESULTS LIMITS Vitamin D, 25-Hydroxy 36.5 ng/mL 30.0-100.0 Vitamin D deficiency has been defined by the [employer] of [employer] and an Endocrine Society practice guideline as a level of serum 25-OH vitamin D less than 20 ng/mL (1,2). The Endocrine Society went on to further define vitamin D insufficiency as a level between 21 and 29 ng/mL (2). 1. IOM ([place] of [employer]). 2010. Dietary reference intakes for calcium and D. Kat [place]: The National Academies Press. 2. Anthony MF, Kelly [place], Hunter SANTOS, et al. Evaluation, treatment, and prevention of vitamin D deficiency: an Endocrine Society clinical practice guideline. JCEM. 2010; 96(4):1911-30. TESTING PERFORMED AT [facility]. ORIGINAL REPORT ON FILE IN LAB CONTAINS ADDITIONAL TEST SITE INFORMATION. Performed By: #### L 3300.0940, L100.0100, L500.4100, L501.9985, L500.4050 ####[facility] [address] [place], [address] MR/BMS.IMBon 05-27-2024 MR/BMS.B [facility] [address] [place] [address] OFFICE VISIT Date of Service: 05/27/24 MR#: [id number] Acct: [id number] Name: MATTHEW TOMLIN Rep #: [id number] : 1960 Provider: Dr. Jessica colmenares MD Age/Sex: 63/M Location: [facility] Status: Signed Intake Vital Signs 11/26/23 11:41 01/23/24 13:21 05/27/24 07:54 Height 5 ft 5 ft 5 ft Weight: 153 lb 6 oz BMI 29.9 BP 135/81 H Blood Pressure Location Lt brachial Position Sitting Respiration 16 Pulse 75 Pulse Source Monitor Temp 98.4 F Temp Source Temporal Pulse Oximetry (%) 95 Oxygen Delivery Method room air Intake Visit Reasons: 6 M FU Chief Complaint: 6 m fu Inside Sales Executive Required: No Accompanied by: Self Is patient in pain?: No Allergies Environmental Allergies: Uncoded Adverse Reaction (Intermediate, Verified 05/27/24 07:42) Other Medications ???Medication ???Instructions ???Recorded ???Confirmed ???Type aspirin 81 mg tablet,delayed 81 mg PO DAILY 08/23/19 05/27/24 History release (Adult Aspirin Regimen) guhmytxq-ky-gzgrq 300 mcg-K 60 1 tab PO DAILY 08/23/21 05/27/24 History mcg-lycop 600 mcg-lutein 300 mcg tablet (Centrum Silver Men) amlodipine 10 mg tablet 10 mg PO DAILY #90 tabs 07/14/23 05/27/24 Rx atorvastatin 80 mg tablet 80 mg PO QHS #90 tabs 03/15/24 05/27/24 Rx metoprolol tartrate 25 mg tablet 25 mg PO BID #180 tabs 03/15/24 05/27/24 Rx benazepril 40 mg tablet 40 mg PO QHS #90 tabs 04/14/24 05/27/24 Rx metformin 500 mg tablet 500 mg PO BID #180 tabs 05/18/24 05/27/24 Rx Have you fallen in the past year?: No PFSH Medical History Inguinal hernia of left side without obstruction or gangrene Umbilical hernia Vascular leiomyoma Mass of soft tissue of wrist Wears glasses Cancer Alcohol use Diabetes Dietary restriction Gastric reflux Former smoker History of stress test History of echocardiogram Hypertension Cardiology follow-up encounter Hemoglobin A1c between 7.0% and 9.0% Ganglion cyst of dorsum of right wrist Heart disease Back problem Headache, migraine Thoracic aortic aneurysm (TAA) GERD (gastroesophageal reflux disease) Old anterior wall myocardial infarction (05/23/13) Prostate cancer Hyperlipidemia Essential (primary) hypertension Type 2 diabetes mellitus Atherosclerosis of coronary artery of [place] heart without angina pectoris Surgical History History of robot-assisted repair of left inguinal hernia Cyst History of excision of lesion Hx of surgical procedure History of coronary angioplasty (05/23/13) History of prostatectomy (2015) H/O coronary artery bypass surgery (05/26/13) Family History Father CAD (coronary artery disease) Social History Smoking Status: Former smoker alcohol intake: current alcohol intake frequency: a few times a month Alcohol type: beer details: Beer 2 a week substance use type: does not use caffeine: Yes Type: coffee Number of servings: 1 what type of physical activity do you participate in: walking frequency: 5-6 times per week HPI HPI Chief Complaint: 6 m fu Details: MATTHEW TOMLIN, is a 63 M who presents to the office today for 6-month follow-up. 63-year-old gentleman who has a history of type 2 diabetes, on lower dose of metformin 500 mg p.o. twice daily long-term, essential hypertension, CAD, status post CABG in 2013, history of prostate cancer with prostatectomy, 2017. He is currently on amlodipine 10 mg daily, aspirin 81 mg daily, atorvastatin high-dose 80 mg daily, BenzePrO 40 mg daily and metformin, as well as metoprolol 25 mg p.o. twice daily. All of these medications have been stable. He is tolerating his current medical regimen. He has no new specific concerns or issues right now. Overall feels well. Trying to remain as physically active as possible. He self-admittedly, feels like he is slowing down a bit, appropriate for age he would feel. He did have COVID about a month ago and was "drained" from that but continually getting better. Overall tries to follow a good diet. Self-admittedly has some times when he will have a little bit of a sweet such as a cookie or something similar but this is not frequent. Tries to get fruits and vegetables in the diet regularly, and does avoid deep-fried, heated vegetable oils is much as possible. Review of systems per chart. He denies any episodes of chest pain, chest tightness, shortness of breath wheeze cough or congestion. No dysuria, urgency or frequency is noted. Normal urinary stream. Physical exam. Vital signs on chart. PERRLA. Sclera are clear. TMs are unremar (more content not included)... Normal [facility] CBC W/Diff, Automatedon 05-11 Absolute Lymph 1.85 X10 3/uL Normal 0.83-4.51 [facility] Comment on above: Performed By: #### L 3300.0940, L100.0100, L500.4100, L501.9985, L500.4050 ####[facility] [address] [place], [address] Absolute Neut 3.7 X10 3/uL Normal 2.0-7.7 [facility] Comment on above: Performed By: #### L 3300.0940, L100.0100, L500.4100, L501.9985, L500.4050 ####[facility] [address] [place], [address] Basophils/100 WBC (Bld) 0.5 % Normal 0-1 [facility] Comment on above: Performed By: #### L 3300.0940, L100.0100, L500.4100, L501.9985, L500.4050 ####[facility] [address] [place], [address] Eosinophils/100 WBC (Bld) 6.2 % High 0-5 [facility] Comment on above: Performed By: #### L 3300.0940, L100.0100, L500.4100, L501.9985, L500.4050 ####[facility] [address] [place], [address] Erythrocyte distribution width (RBC) [Ratio] 13.1 % Normal 11.6-14.6 [facility] Comment on above: Performed By: #### L 3300.0940, L100.0100, L500.4100, L501.9985, L500.4050 ####[facility] [address] [place], [address] Hematocrit (Bld) [Volume fraction] 46.1 % Normal 40-54 [facility] Comment on above: Performed By: #### L 3300.0940, L100.0100, L500.4100, L501.9985, L500.4050 ####[facility] [address] [place], [address] Hemoglobin (Bld) [Mass/Vol] 15.2 g/dL Normal 13.0-16.5 [facility] Comment on above: Performed By: #### L 3300.0940, L100.0100, L500.4100, L501.9985, L500.4050 ####[facility] [address] [place], [address] IG% 0.200 Normal 0.0-0.9 [facility] Comment on above: Result Comment: IG% - Immature Granulocytes (promyelocytes, myelocytes and metamyelocytes) > 1% indicates that a LEFT SHIFT is Present. Performed By: #### L 3300.0940, L100.0100, L500.4100, L501.9985, L500.4050 ####[facility] [address] [place], [address] Lymphocytes/100 WBC (Bld) 28.7 % Normal 19-41 [facility] Comment on above: Performed By: #### L 3300.0940, L100.0100, L500.4100, L501.9985, L500.4050 ####[facility] [address] [place], [address] MCH (RBC) [Entitic mass] 30.6 pg Normal 27.0-32.0 [facility] Comment on above: Performed By: #### L 3300.0940, L100.0100, L500.4100, L501.9985, L500.4050 ####[facility] [address] [place], [address] MCHC (RBC) [Mass/Vol] 33.0 g/dL Normal 32-36 [facility] Comment on above: Performed By: #### L 3300.0940, L100.0100, L500.4100, L501.9985, L500.4050 ####[facility] [address] [place], [address] MCV (RBC) [Entitic vol] 92.8 fL Normal 80-94 [facility] Comment on above: Performed By: #### L 3300.0940, L100.0100, L500.4100, L501.9985, L500.4050 ####[facility] [address] [place], [address] Monocytes/100 WBC (Bld) 7.8 % Normal 0-10 [facility] Comment on above: Performed By: #### L 3300.0940, L100.0100, L500.4100, L501.9985, L500.4050 ####[facility] [address] [place], [address] Neutrophils/100 WBC (Bld) 56.6 % Normal 47-70 [facility] Comment on above: Performed By: #### L 3300.0940, L100.0100, L500.4100, L501.9985, L500.4050 ####[facility] [address] [place], [address] Nucleated RBC (Bld) [#/Vol] 0 10*3/uL Normal 0-5 [facility] Comment on above: Performed By: #### L 3300.0940, L100.0100, L500.4100, L501.9985, L500.4050 ####[facility] [address] [place], [address] Platelet mean volume (Bld) [Entitic vol] 11.8 fL Normal 6.2-12.0 [facility] Comment on above: Performed By: #### L 3300.0940, L100.0100, L500.4100, L501.9985, L500.4050 ####[facility] [address] [place], [address] Platelets (Bld) [#/Vol] 174 10*3/uL Normal 150-450 [facility] Comment on above: Performed By: #### L 3300.0940, L100.0100, L500.4100, L501.9985, L500.4050 ####[facility] [address] [place], [address] RBC (Bld) [#/Vol] 4.97 10*6/uL Normal 4.6-6.2 [facility] Comment on above: Performed By: #### L 3300.0940, L100.0100, L500.4100, L501.9985, L500.4050 ####[facility] [address] [place], [address] RDW SD 43.9 fl Normal 35.1-43.9 [facility] Comment on above: Performed By: #### L 3300.0940, L100.0100, L500.4100, L501.9985, L500.4050 ####[facility] [address] [place], [address] WBC (Bld) [#/Vol] 6.4 10*3/uL Normal 4.4-11.0 [facility] Comment on above: Performed By: #### L 3300.0940, L100.0100, L500.4100, L501.9985, L500.4050 ####[facility] [address] [place], [address] Comprehensive Metabolic [facility] 05-24-2024 Albumin [Mass/Vol] 3.8 g/dL Normal 3.2-5.0 [facility] Comment on above: Performed By: #### L 3300.0940, L100.0100, L500.4100, L501.9985, L500.4050 ####[facility] [address] [place], [address] Albumin/Globulin [Mass ratio] 1.2 {ratio} Normal 0.9-2.4 [facility] Comment on above: Performed By: #### L 3300.0940, L100.0100, L500.4100, L501.9985, L500.4050 ####[facility] [address] [place], [address] ALK P 82 U/L Normal 45-117 [facility] Comment on above: Performed By: #### L 3300.0940, L100.0100, L500.4100, L501.9985, L500.4050 ####[facility] [address] [place], [address] ALT [Catalytic activity/Vol] 32 U/L Normal 16-61 [facility] Comment on above: Performed By: #### L 3300.0940, L100.0100, L500.4100, L501.9985, L500.4050 ####[facility] [address] [place], [address] AST [Catalytic activity/Vol] 17 U/L Normal 15-37 [facility] Comment on above: Performed By: #### L 3300.0940, L100.0100, L500.4100, L501.9985, L500.4050 ####[facility] [address] [place], [address] Bilirubin [Mass/Vol] 0.70 mg/dL Normal 0.20-1.00 [facility] Comment on above: Result Comment: For patients on eltrombopag therapy, use of Dimension Williams TBIL is not recommended. Performed By: #### L 3300.0940, L100.0100, L500.4100, L501.9985, L500.4050 ####[facility] [address] [place], [address] BUN/CRE 18.6 RATIO Normal 10-20 [facility] Comment on above: Performed By: #### L 3300.0940, L100.0100, L500.4100, L501.9985, L500.4050 ####[facility] [address] [place], [address] CA,Total 9.4 mg/dL Normal 8.5-10.1 [facility] Comment on above: Performed By: #### L 3300.0940, L100.0100, L500.4100, L501.9985, L500.4050 ####[facility] [address] [place], [address] Chloride [Moles/Vol] 108 mmol/L High 98-107 [facility] Comment on above: Performed By: #### L 3300.0940, L100.0100, L500.4100, L501.9985, L500.4050 ####[facility] [address] [place], [address] CO2 [Moles/Vol] 24.0 mmol/L Normal 21.0-32.0 [facility] Comment on above: Performed By: #### L 3300.0940, L100.0100, L500.4100, L501.9985, L500.4050 ####[facility] [address] [place], [address] Creatinine [Mass/Vol] 0.91 mg/dL Normal 0.70-1.30 [facility] Comment on above: Result Comment: The validity of the calculated GFR GFRAA in patients over 70 years has not been determined. Clinical correlation is essential. Performed By: #### L 3300.0940, L100.0100, L500.4100, L501.9985, L500.4050 ####[facility] [address] [place], [address] EST GFR - AA 107 mL/min Normal >60 [facility] Comment on above: Result Comment: Afri can [place] GFR Calc Performed By: #### L 3300.0940, L100.0100, L500.4100, L501.9985, L500.4050 ####[facility] [address] [facility] [address] GAP 8 Normal 5-15 [facility] Comment on above: Performed By: #### L 3300.0940, L100.0100, L500.4100, L501.9985, L500.4050 ####[facility] [address] [place], [address] GFR/1.73 sq M.predicted among non-blacks MDRD (S/P/Bld) [Vol rate/Area] 88 mL/min/{1.73_m2} Normal >60 [facility] Comment on above: Result Comment: Non- GFR Calc Performed By: #### L 3300.0940, L100.0100, L500.4100, L501.9985, L500.4050 ####[facility] [address] [place], [address] Globulin (S) [Mass/Vol] 3.1 g/dL Normal 2.2-4.2 [facility] Comment on above: Performed By: #### L 3300.0940, L100.0100, L500.4100, L501.9985, L500.4050 ####[facility] [address] [place], [address] Glucose [Mass/Vol] 176 mg/dL High 74-106 [facility] Comment on above: Result Comment: Fast ing Glucose result greater than or equal to 126 mg/dL suggests DIABETES MELLITUS per A.D.A. criteria. Performed By: #### L 3300.0940, L100.0100, L500.4100, L501.9985, L500.4050 ####[facility] [address] [place], [address] Potassium [Moles/Vol] 4.3 mmol/L Normal 3.5-5.1 [facility] Comment on above: Performed By: #### L 3300.0940, L100.0100, L500.4100, L501.9985, L500.4050 ####[facility] [address] [place], [address] Sodium [Moles/Vol] 140 mmol/L Normal 136-145 [facility] Comment on above: Performed By: #### L 3300.0940, L100.0100, L500.4100, L501.9985, L500.4050 ####[facility] [address] [place], [address] T PROT 6.9 g/dL Normal 6.4-8.2 [facility] Comment on above: Performed By: #### L 3300.0940, L100.0100, L500.4100, L501.9985, L500.4050 ####[facility] [address] [place], [address] Urea nitrogen [Mass/Vol] 17 mg/dL Normal 7-18 [facility] Comment on above: Performed By: #### L 3300.0940, L100.0100, L500.4100, L501.9985, L500.4050 ####[facility] [address] [place], [address] Hemoglobin A1con 05-24-2024 HbA1c (Bld) [Mass fraction] 7.7 % High 3.8-5.6 [facility] Comment on above: Result Comment: Norm al < 5.7 % Prediabetic 5.7 - 6.4 % Diabetic >or= 6.5 % Please note range changes. Performed By: #### L 3300.0940, L100.0100, L500.4100, L501.9985, L500.4050 ####[facility] [address] [place], [address] Lipid Profileon 05-24-2024 Cholesterol [Mass/Vol] 119 mg/dL Normal 200 [facility] Comment on above: Result Comment: <200 mg/dL Desirable 200-240 mg/dL Borderline >240 mg/dL High Risk Performed By: #### L 3300.0940, L100.0100, L500.4100, L501.9985, L500.4050 ####[facility] [address] [place], [address] Cholesterol in HDL [Mass/Vol] 43 mg/dL Normal [facility] Comment on above: Result Comment: The drugs N-Acetylcysteine and Metamizole may falsely depress this assay. Reference Range HDL <40 mg/dL Low HDL Cholesterol HDL >or= 60 mg/dL High HDL Cholesterol Performed By: #### L 3300.0940, L100.0100, L500.4100, L501.9985, L500.4050 ####[facility] [address] [place], [address] Cholesterol in LDL [Mass/Vol] 58 mg/dL Normal 0-130 [facility] Comment on above: Performed By: #### L 3300.0940, L100.0100, L500.4100, L501.9985, L500.4050 ####[facility] [address] [place], [address] Cholesterol in VLDL [Mass/Vol] 18 mg/dL Normal 5-40 [facility] Comment on above: Performed By: #### L 3300.0940, L100.0100, L500.4100, L501.9985, L500.4050 ####[facility] [address] [place], [address] Triglyceride [Mass/Vol] 91 mg/dL Normal [facility] Comment on above: Result Comment: The drugs N-Acetylcysteine and Metamizole may falsely depress this assay. Serum Triglycerides Reference Interval Normal <150 mg/dL Borderline high 150 - 199 mg/dL High 200 - 499 mg/dL Very High > or = 500 mg/dL Performed By: #### L 3300.0940, L100.0100, L500.4100, L501.9985, L500.4050 ####[facility] [address] [place], [address] Basic Metabolic Profile (BMP )on 03-03-2024 BUN/CRE 20.7 RATIO High 10-20 [facility] Comment on above: Performed By: #### L 500.2500, L500.3400, L500.4100 #### [facility] [address] [place], [address] CA,Total 9.2 mg/dL Normal 8.5-10.1 [facility] Comment on above: Performed By: #### L 500.2500, L500.3400, L500.4100 #### [facility] [address] [place], [address] Chloride [Moles/Vol] 107 mmol/L Normal 98-107 [facility] Comment on above: Performed By: #### L 500.2500, L500.3400, L500.4100 #### [facility] [address] [place], [address] CO2 [Moles/Vol] 25.0 mmol/L Normal 21.0-32.0 [facility] Comment on above: Performed By: #### L 500.2500, L500.3400, L500.4100 #### [facility] [address] [place], [address] Creatinine [Mass/Vol] 0.96 mg/dL Normal 0.70-1.30 [facility] Comment on above: Result Comment: The validity of the calculated GFR GFRAA in patients over 70 years has not been determined. Clinical correlation is essential. Performed By: #### L 500.2500, L500.3400, L500.4100 #### [facility] [address] [place], [address] EST GFR - AA 100 mL/min Normal >60 [facility] Comment on above: Result Comment: Afri can [place] GFR Calc Performed By: #### L 500.2500, L500.3400, L500.4100 #### [facility] [address] [place], [address] GAP 7 Normal 5-15 [facility] Comment on above: Performed By: #### L 500.2500, L500.3400, L500.4100 #### [facility] [address] [place], [address] GFR/1.73 sq M.predicted among non-blacks MDRD (S/P/Bld) [Vol rate/Area] 83 mL/min/{1.73_m2} Normal >60 [facility] Comment on above: Result Comment: Non- GFR Calc Performed By: #### L 500.2500, L500.3400, L500.4100 #### [facility] [address] [place], [address] Glucose [Mass/Vol] 155 mg/dL High 74-106 [facility] Comment on above: Result Comment: Fast ing Glucose result greater than or equal to 126 mg/dL suggests DIABETES MELLITUS per A.D.A. criteria. Performed By: #### L 500.2500, L500.3400, L500.4100 #### [facility] [address] [place], [address] Potassium [Moles/Vol] 4.0 mmol/L Normal 3.5-5.1 [facility] Comment on above: Performed By: #### L 500.2500, L500.3400, L500.4100 #### [facility] [address] [place], [address] Sodium [Moles/Vol] 139 mmol/L Normal 136-145 [facility] Comment on above: Performed By: #### L 500.2500, L500.3400, L500.4100 #### [facility] [address] [place], [address] Urea nitrogen [Mass/Vol] 20 mg/dL High 7-18 [facility] Comment on above: Performed By: #### L 500.2500, L500.3400, L500.4100 #### [facility] [address] [place], [address] Hemoglobin A1con 03-03-2024 HbA1c (Bld) [Mass fraction] 6.8 % High 3.8-5.6 [facility] Comment on above: Result Comment: Norm al < 5.7 % Prediabetic 5.7 - 6.4 % Diabetic >or= 6.5 % Please note range changes. Performed By: #### L 501.9985 #### [facility] [address] [place], [address] Lipid Profileon 03-03-2024 Cholesterol [Mass/Vol] 102 mg/dL Normal 200 [facility] Comment on above: Result Comment: <200 mg/dL Desirable 200-240 mg/dL Borderline >240 mg/dL High Risk Performed By: #### L 500.2500, L500.3400, L500.4100 #### [facility] [address] [place], [address] Cholesterol in HDL [Mass/Vol] 43 mg/dL Normal [facility] Comment on above: Result Comment: The drugs N-Acetylcysteine and Metamizole may falsely depress this assay. Reference Range HDL <40 mg/dL Low HDL Cholesterol HDL >or= 60 mg/dL High HDL Cholesterol Performed By: #### L 500.2500, L500.3400, L500.4100 #### [facility] [address] [place], [address] Cholesterol in LDL [Mass/Vol] 44 mg/dL Normal 0-130 [facility] Comment on above: Performed By: #### L 500.2500, L500.3400, L500.4100 #### [facility] [address] [place], [address] Cholesterol in VLDL [Mass/Vol] 15 mg/dL Normal 5-40 [facility] Comment on above: Performed By: #### L 500.2500, L500.3400, L500.4100 #### [facility] [address] [place], [address] Triglyceride [Mass/Vol] 73 mg/dL Normal [facility] Comment on above: Result Comment: The drugs N-Acetylcysteine and Metamizole may falsely depress this assay. Serum Triglycerides Reference Interval Normal <150 mg/dL Borderline high 150 - 199 mg/dL High 200 - 499 mg/dL Very High > or = 500 mg/dL Performed By: #### L 500.2500, L500.3400, L500.4100 #### [facility] [address] [place], [address] Liver Profileon 03-03-2024 Albumin [Mass/Vol] 3.7 g/dL Normal 3.2-5.0 [facility] Comment on above: Performed By: #### L 500.2500, L500.3400, L500.4100 #### [facility] [address] [place], [address] ALK P 74 U/L Normal 45-117 [facility] Comment on above: Performed By: #### L 500.2500, L500.3400, L500.4100 #### [facility] [address] [place], [address] ALT [Catalytic activity/Vol] 39 U/L Normal 16-61 [facility] Comment on above: Performed By: #### L 500.2500, L500.3400, L500.4100 #### [facility] [address] [place], [address] AST [Catalytic activity/Vol] 24 U/L Normal 15-37 [facility] Comment on above: Performed By: #### L 500.2500, L500.3400, L500.4100 #### [facility] [address] [place], [address] Bilirubin [Mass/Vol] 0.90 mg/dL Normal 0.20-1.00 [facility] Comment on above: Result Comment: For patients on eltrombopag therapy, use of Dimension Williams TBIL is not recommended. Performed By: #### L 500.2500, L500.3400, L500.4100 #### [facility] [address] [place], [address] Bilirubin.direct [Mass/Vol] 0.23 mg/dL Normal 0.00-0.30 [facility] Comment on above: Performed By: #### L 500.2500, L500.3400, L500.4100 #### [facility] [address] [place], [address] Globulin (S) [Mass/Vol] 3.0 g/dL Normal 2.2-4.2 [facility] Comment on above: Performed By: #### L 500.2500, L500.3400, L500.4100 #### [facility] [address] [place], [address] T PROT 6.7 g/dL Normal 6.4-8.2 [facility] Comment on above: Performed By: #### L 500.2500, L500.3400, L500.4100 #### [facility] [address] [place], [address] Stress Reporton 02-06-2024 Stress Report [facility] [address] [place] [address] MR#: [id number] Acct: [id number] Name: MATTHEW TOMLIN Rep #: [id number] : 1960 63 From: Ankit Foster MD Primary Care: Dr. Jessica Dan MD Status: REG [facility] Referring Dr: Ankit Foster MD Sex: M C Stress Test Report Exercise myocardial perfusion stress test. 63-year-old man with a history of coronary artery disease Stress protocol: Resting EKG demonstrates normal sinus rhythm with a rate of 62 bpm resting blood pressure is 132/84 mmHg. The patient exercised according to the regular Lizandro protocol for a total duration of 11 minutes and 24 seconds attaining a maximum heart rate of 130 bpm which was 83% of maximum predicted heart rate; the maximum workload was 13.4 metabolic equivalents. At rest there were no ST or T wave changes noted to suggest ischemia and at peak exercise upsloping ST changes only were noted which did not meet the criteria for ischemia. No clinical angina was noted the test was terminated due to the target heart rate being achieved/fatigue. The peak blood pressure was 154/70 mmHg. Rate- pressure product was 17,700. Myocardial perfusion protocol. 11.4 mCi of technetium 99m sestamibi was injected at rest. The patient exercised according to regular Lizandro protocol for total duration of 11 minutes and 24 seconds and at peak exercise 34.2 mCi of technetium 99m sestamibi was injected stress images were obtained stress and rest images were reconstructed in comparing the short axis vertical long and horizontal long axis. Gated images were also obtained. Perfusion SPECT analysis: Review of the stress images demonstrate normal uptake of tracer noted in all areas of the myocardium. A small defect at the apex is noted. Small apical defect is noted which is persistent suggestive of a previous small apical infarct. No ischemia is noted. Gated SPECT analysis: The gated ejection fraction is 67%. Conclusion: Normal exercise myocardial perfusion stress test at a high workload with a small previous apical infarct Preserved ejection fraction. 02/06/24 1014 Date Ankit Foster MD CC: Dr. Ankit Foster MD; Dr. Jessica Dan MD Date Dictated: 02/06/24 1012 Date Transcribed: 02/06/24 1012 Healthcare Advisory Services Manager: [place] Signed Normal [facility] CREATININE FINGERSTICKon CREATININE WB < 1.0 Normal 0.70-1.30 [facility] Comment on above: Performed By: #### L 9100.0200 #### [facility] [address] [place], [place], [id number] EGFR WB > 60.0000 Normal >60 [facility] Comment on above: Performed By: #### L 9100.0200 #### [facility] [address] [place], [address] CTA Chest W/WO Contraston CTA Chest W/WO Contrast [facility] [address] [place] [address] CTA Chest W/WO Contrast MR#: [id number] Acct: [id number] Name: MATTHEW TOMLIN Rep #: [id number] : 1960 M 63 From: Max Brown MD PCP: Dr. Jessica Dan MD Status: REG CLI Study: CTA Chest W/WO Contrast Date of Exam: 02/05/24 Exam# [id number] Ordering Dr: Ankit Foster MD [id number] EXAM: CT ANGIOGRAPHY CHEST WITHOUT AND WITH INTRAVENOUS CONTRAST CLINICAL INDICATION: TAA . History of prostate carcinoma and prostatectomy. Diabetes. Hypertension. TECHNIQUE: Helically acquired angiography images were obtained of the chest without and with intravenous contrast. This CT exam was performed using one or more of the following dose reduction techniques: automated exposure control, adjustment of the mA and/or kV according to patient size, and/or use of iterative reconstruction technique. MIP reconstructed images were created and reviewed. CONTRAST: IV 100mL Isovue-370 RADIATION DOSE: CTDIvol = 7.10 mGy, DLP = 266.83 mGy-cm COMPARISON: CTA chest 08/31/2021. FINDINGS: PULMONARY ARTERIES: Unremarkable. Normal in caliber. No evidence of pulmonary embolism. AORTA: Mild dilatation of the ascending aorta with a diameter of 3.8 cm. No evidence of dissection. GREAT VESSELS OF AORTIC ARCH: Unremarkable. Normal in caliber. No evidence of dissection. RENAL ARTERIES: 50% stenosis of the right renal artery with poststenotic dilatation. Calcified plaques without significant stenosis of the left renal artery. No demonstrated narrowing of the celiac artery and SMA. LUNGS AND PLEURAL SPACES: Calcified granuloma in the right upper lobe. Small calcified granuloma in the left upper lobe. No suspicious pulmonary nodules or infiltrates. No pleural effusion or thickening. No pneumothorax. HEART: Sternal wires from CABG procedure. Heart size is normal. No pericardial effusion. No significant coronary artery calcifications. MEDIASTINUM: Unremarkable. No mediastinal or hilar adenopathy. Esophagus is unremarkable. No hiatal hernia. THYROID: Unremarkable. No thyroid lesions. BONES/JOINTS: Pronounced T12-L1 disc space height narrowing with prominent anterior and left lateral marginal spurs. No suspicious acute fractures. No lytic or blastic lesions. LIVER: Small low-attenuation lesion in segment 7 of the liver parenchyma is too small to confirm cystic or solid. GALLBLADDER AND BILE DUCTS: Small calcified gallstones inside nondilated gallbladder fossa. CT/CTA Chest W/WO Contrast IMPRESSION: 1. No CTA evidence of pulmonary thromboemboli, thoracic aortic aneurysm or dissection. 2. No suspicious pneumonia or acute cardiopulmonary pathology. 3. A few small calcified gallstones inside nondilated gallbladder fossa. These were present previously. 4. 1 cm low-attenuation lesion in segment 7 of the liver parenchyma is too small to confirm cystic or solid. This is stable and unchanged when compared to 08/31/2021. Electronically Signed: Max Brown MD at 11:10 EDT Reading Location ID and State: [address] [place] [address] , Service support , CC: Dr. Ankit Foster MD; Dr. Jessica Dan MD Healthcare Advisory Services Manager: Signed Normal [facility] Cardiology Visit Reporton Cardiology Visit Report [facility] [address] [place] [address] OFFICE VISIT Date of Service: 01/23/24 MR#: [id number] Acct: [id number] Name: MATTHEW TOMLIN Rep #: [id number] : 1960 Provider: Dr. Ankit Fostre MD Age/Sex: 63/M [place] [facility] [place] Status: Signed [facility] History of Present Illness Details: Pleasant 63-year-old male with a history of hypertension, hyperlipidemia, diabetes mellitus, premature coronary artery disease status post anterior wall myocardial infarction in May 2013. He had plain old balloon angioplasty to the mid left anterior descending artery and subsequently underwent coronary artery bypass surgery with a left internal mammary artery to the left anterior descending artery, saphenous vein graft to the distal left anterior descending artery, sequential saphenous vein graft to the right coronary artery and posterior descending artery. He did undergo an echocardiographic evaluation in August 2019 which demonstrated preserved ejection fraction but with an ascending aorta which was mildly dilated measuring 4.0 cm. He underwent chest CT scan on 09/03/2019 that showed ascending thoracic aorta at 4.4 cm. He denies chest, arm, jaw, or neck discomfort. He denies symptoms of shortness of breath with exertion, shortness of breath at rest, orthopnea, PND, sudden weight gain, or bilateral lower extremity edema. He denies chronic cough. He denies palpitations, lightheadedness, dizziness, near syncope, or syncopal episodes. He denies claudication issues. He denies fever or chills. He denies blood in urine, blood in stool, or epistaxis. He denies myalgia. He denies unexplainable fatigue. His exercise tolerance is stable via treadmill for 30 minutes 5-6 days a week. 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 Sales Executive Required: No Accompanied by: Is patient in pain?: No Allergies Environmental Allergies: Uncoded Adverse Reaction (Intermediate, Verified 01/23/24 13:25) Other Medications ???Medication ???Instructions ???Recorded ???Confirmed ???Type aspirin 81 mg tablet,delayed 81 mg PO DAILY 08/23/19 01/23/24 History release (Adult Aspirin Regimen) [id number]-uf-hiwnu 300 mcg-K 60 1 tab PO DAILY 08/23/21 01/23/24 History mcg-lycop 600 mcg-lutein 300 mcg tablet (Centrum Silver Men) atorvastatin 80 mg tablet 80 mg PO QHS #90 tabs 03/18/23 01/23/24 Rx metoprolol tartrate 25 mg tablet 25 mg PO BID #180 tabs 03/18/23 01/23/24 Rx benazepril 40 mg tablet 40 mg PO QHS #90 tabs 04/18/23 01/23/24 Rx metformin 500 mg tablet 500 mg PO BID #180 tabs 05/15/23 01/23/24 Rx amlodipine 10 mg tablet 10 mg PO DAILY #90 tabs 07/14/23 01/23/24 Rx PFSH Medical History Inguinal hernia of left side without obstruction or gangrene Umbilical hernia Vascular leiomyoma Mass of soft tissue of wrist Wears glasses Cancer Alcohol use Diabetes Dietary restriction Gastric reflux Former smoker History of stress test History of echocardiogram Hypertension Cardiology follow-up encounter Hemoglobin A1c between 7.0% and 9.0% Ganglion cyst of dorsum of right wrist Heart disease Back problem Headache, migraine Thoracic aortic aneurysm (TAA) GERD (gastroesophageal reflux disease) Old anterior wall myocardial infarction (05/23/13) Prostate cancer Hyperlipidemia Essential (primary) hypertension Type 2 diabetes mellitus Atherosclerosis of coronary artery of [place] heart without angina pectoris Surgical History History of robot-assisted repair of left inguinal hernia Cyst History of excision of lesion Hx of surgical procedure History of coronary angioplasty (05/23/13) History of prostatectomy (2015) H/O coronary artery bypass surgery (05/26/13) Family History Father CAD (coronary artery disease) Social History Smoking Status: Former smoker alcohol intake: current alcohol intake frequency: a few times a month Alcohol type: beer details: Beer 2 a week substance use type: does not use caffeine: Yes Type: coffee Number of servings: 1 what type of physical activity do you participate in: walking frequency: 5-6 times per week ROS Const Const: Negative for fatigue, weakness, headache(s), frequent falls, difficulty sleeping or e (more content not included)... Normal [facility] Basophil percentageOrdered B y: Jessica Dan on 11-17-2023 Basophil percentage < 0.01 ng/mL 0.0-4.0 [facility] Comment on above: This test was perfor med using the TPSA assay method for theDimension chemistry system. Values obtained with differentassay methods cannot be used interchangably.When changing PSA assays in the course of monitoring apatient, additional sequential testing should be carriedout to confirm baseline values. Whole blood hemoglobin A1c/t otal hemoglobin ratio (mass fraction)Ordered By: Jessica Dan on 11-17-2023 HbA1c (Bld) [Mass fraction] 9.6 % 3.8-5.6 [facility] Comment on above: Normal < 5.7 % Predi abetic 5.7 - 6.4 % Diabetic >or= 6.5 % Please note range changes. Absolute lymphocyte countOrd ered By: Jessica Dan on 06-17-2023 Lymphocytes Auto (Unsp spec) [#/Vol] 1.65 10*3/uL 0.83-4.51 [facility] Basophil percentageOrdered B y: Jessica Dan on 06-17-2023 Basophils/100 WBC (Bld) 1.1 % 0-1 [facility] Bilirubin [Mass/Vol] 0.50 mg/dL 0.20-1.00 [facility] Comment on above: For patients on eltr ombopag therapy, use of Dimension Williams TBIL is not recommended. Chloride [Moles/Vol] 106 mmol/L 98-107 [facility] Cholesterol [Mass/Vol] 126 mg/dL <200 [facility] Comment on above: <200 mg/dL Desirable 200-240 mg/dL Borderline >240 mg/dL High Risk Eosinophils/100 WBC (Bld) 5.6 % 0-5 [facility] Glucose [Mass/Vol] 170 mg/dL 74-106 [facility] Comment on above: Fasting Glucose resu lt greater than or equal to 126 mg/dL suggests DIABETES MELLITUS per A.D.A. criteria. Neutrophils (Bld) [#/Vol] 4.1 10*3/uL 2.0-7.7 [facility] Neutrophils/100 WBC (Bld) 61.7 % 47-70 [facility] Potassium [Moles/Vol] 4.3 mmol/L 3.5-5.1 [facility] Protein [Mass/Vol] 7.0 g/dL 6.4-8.2 [facility] Sodium [Moles/Vol] 138 mmol/L 136-145 [facility] Triglyceride [Mass/Vol] 110 mg/dL <199 [facility] Comment on above: The drugs N-Acetylcy steine and Metamizole may falsely depress this assay.Serum Triglycerides Reference Interval Normal <150 mg/dL Borderline high 150 - 199 mg/dL High 200 - 499 mg/dL Very High > or = 500 mg/dL WBC (Bld) [#/Vol] 6.6 10*3/uL 4.4-11.0 [facility] Blood erythrocytes count (nu mber/volume)Ordered By: Jessica Dan on 06-17-2023 RBC (Bld) [#/Vol] 4.90 10*6/uL 4.6-6.2 [facility] Blood hemoglobin measurement (mass/volume)Ordered By: Jessica Dan on 06-17-2023 Hemoglobin (Bld) [Mass/Vol] 15.2 g/dL 13.0-16.5 [facility] Blood lymphocytes/100 leukoc ytesOrdered By: Jessica Dan on 06-17-2023 Lymphocytes/100 WBC (Bld) 25.2 % 19-41 [facility] Blood monocytes/100 leukocyt esOrdered By: Jessica Dan on 06-17-2023 Monocytes/100 WBC (Bld) 6.1 % 0-10 [facility] Blood platelet mean volumeOr dered By: Jessica Dan on 06-17-2023 Platelet mean volume (Bld) [Entitic vol] 10.4 fL 6.2-12.0 [facility] Determination of erythrocyte mean corpuscular volume (MCV)Ordered By: Jessica Dan on 06-17-2023 MCV (RBC) [Entitic vol] 92.4 fL 80-94 [facility] Hematocrit Auto (Bld) [Volum e fraction]Ordered By: Jessica Dan on 06-17-2023 Hematocrit (Bld) [Volume fraction] 45.3 % 40-54 [facility] - Chemistry and C hemistry - challengeOrdered By: Jessica Dan on 06-17-2023 ALP [Catalytic activity/Vol] 87 U/L 45-117 [facility] ALT [Catalytic activity/Vol] 36 U/L 16-61 [facility] CO2 [Moles/Vol] 29.0 mmol/L 21.0-32.0 [facility] Globulin (S) [Mass/Vol] 3.3 g/dL 2.2-4.2 [facility] Urea nitrogen/Creatinine [Mass ratio] 14.1 mg/mg 10-20 [facility] - Hematology and Cell countsOrdered By: Jessica Dan on 06-17-2023 Erythrocyte distribution width (RBC) [Entitic vol] 41.6 fL 35.1-43.9 [facility] Erythrocyte distribution width (RBC) [Ratio] 12.2 % 11.6-14.6 [facility] Immature granulocytes/100 WBC (Bld) 0.300 % 0.0-0.9 [facility] Comment on above: IG% - Immature Granu locytes (promyelocytes, myelocytes and metamyelocytes) > 1% indicates that a LEFT SHIFT is Present. MCH (RBC) [Entitic mass] 31.0 pg 27.0-32.0 [facility] Nucleated RBC/100 WBC (Bld) [Ratio] 0 % 0-5 [facility] MCHC Auto (RBC) [Mass/Vol]Or dered By: Jessica Dan on 06-17-2023 MCHC (RBC) [Mass/Vol] 33.6 g/dL 32-36 [facility] No Panel InformationOrdered By: Jessica Dan on 06-17-2023 Estimated GFR (MDRD) Amer 98 mL/min >60 [facility] Comment on above: GFR Calc Estimated GFR (MDRD) Non-Af Amer 81 mL/min >60 [facility] Comment on above: Non- GFR Calc Platelets bldOrdered By: Shahana Dan on 06-17-2023 Platelets (Bld) [#/Vol] 228 10*3/uL 150-450 [facility] Serum or plasma albumin ada urement (mass/volume)Ordered By: Jessica Dan on 06-17-2023 Albumin [Mass/Vol] 3.7 g/dL 3.2-5.0 [facility] Serum or plasma albumin/glob ulin mass ratioOrdered By: Jessica Dan on 06-17-2023 Albumin/Globulin [Mass ratio] 1.1 {ratio} 0.9-2.4 [facility] Serum or plasma calcium aad urement (mass/volume)Ordered By: Jessica Dan on 06-17-2023 Calcium [Mass/Vol] 9.6 mg/dL 8.5-10.1 [facility] Serum or plasma cholesterol in HDL measurement (mass/volume)Ordered By: Jessica Dan on 06-17-2023 Cholesterol in HDL [Mass/Vol] 37 mg/dL >40 [facility] Comment on above: The drugs N-Acetylcy steine and Metamizole may falsely depress this assay. Reference Range HDL <40 mg/dL Low HDL Cholesterol HDL >or= 60 mg/dL High HDL Cholesterol Serum or plasma cholesterol in VLDL measurement (mass/volume)Ordered By: Jessica Dan on 06-17-2023 Cholesterol in VLDL [Mass/Vol] 22 mg/dL 5-40 [facility] Serum or plasma creatinine m easurement (mass/volume)Ordered By: Jessica Dan on 06-17-2023 Creatinine [Mass/Vol] 0.99 mg/dL 0.70-1.30 [facility] Comment on above: The validity of the calculated GFR & GFRAA in patients over 70 years has not been determined. Clinical correlation is essential. Serum or plasma low density lipoprotein (LDL) cholesterol measurement (mass/volume)Ordered By: Jessica Dan on 06-17-2023 Cholesterol in LDL [Mass/Vol] 67 mg/dL 0-130 [facility] Serum or plasma urea nitroge n measurement (mass/volume)Ordered By: Jessica Dan on 06-17-2023 Urea nitrogen [Mass/Vol] 14 mg/dL 7-18 [facility] Thin prep Papanicolaou smear with manual screeningOrdered By: Jessica Dan on 06-17-2023 Thin prep Papanicolaou smear with manual screening 19 U/L 15-37 [facility] Thin prep Papanicolaou smear with manual screening 3 5-15 [facility] Whole blood hemoglobin A1c/t otal hemoglobin ratio (mass fraction)Ordered By: Jessica Dan on 06-17-2023 HbA1c (Bld) [Mass fraction] 7.6 % 3.8-5.6 [facility] Comment on above: Normal < 5.7 % Predi abetic 5.7 - 6.4 % Diabetic >or= 6.5 % Please note range changes. Glucose Glucometer (BldC) [M ass/Vol]Ordered By: Aly Yee on 06-05-2023 Glucose [Mass/Vol] 193 mg/dL 74-106 [facility] Comment on above: MANAGEMENT OF PATIEN T CARE PER NURSING PROTOCOL Basophil percentageOrdered B y: Rodrigo Simmons on 05-29-2023 Chloride [Moles/Vol] 105 mmol/L 98-107 [facility] Glucose [Mass/Vol] 150 mg/dL 74-106 [facility] Comment on above: Fasting Glucose resu lt greater than or equal to 126 mg/dL suggests DIABETES MELLITUS per A.D.A. criteria. Potassium [Moles/Vol] 4.5 mmol/L 3.5-5.1 [facility] Sodium [Moles/Vol] 140 mmol/L 136-145 [facility] WBC (Bld) [#/Vol] 6.2 10*3/uL 4.4-11.0 [facility] Blood erythrocytes count (nu mber/volume)Ordered By: Rodrigo Simmons on 05-29-2023 RBC (Bld) [#/Vol] 5.03 10*6/uL 4.6-6.2 [facility] Blood hemoglobin measurement (mass/volume)Ordered By: Rodrigo Simmons on 05-29-2023 Hemoglobin (Bld) [Mass/Vol] 15.8 g/dL 13.0-16.5 [facility] Blood platelet mean volumeOr dered By: Rodrigo Simmons on 05-29-2023 Platelet mean volume (Bld) [Entitic vol] 10.7 fL 6.2-12.0 [facility] Determination of erythrocyte mean corpuscular volume (MCV)Ordered By: Rodrigo Simmons on 05-29-2023 MCV (RBC) [Entitic vol] 91.7 fL 80-94 [facility] Hematocrit Auto (Bld) [Volum e fraction]Ordered By: Rodrigo Simmons on 05-29-2023 Hematocrit (Bld) [Volume fraction] 46.1 % 40-54 [facility] - Chemistry and C hemistry - challengeOrdered By: Rodrigo Simmons on 05-29-2023 CO2 [Moles/Vol] 32.0 mmol/L 21.0-32.0 [facility] Urea nitrogen/Creatinine [Mass ratio] 16.5 mg/mg 10-20 [facility] - Hematology and Cell countsOrdered By: Rodrigo Simmons on 05-29-2023 Erythrocyte distribution width (RBC) [Entitic vol] 41.6 fL 35.1-43.9 [facility] Erythrocyte distribution width (RBC) [Ratio] 12.4 % 11.6-14.6 [facility] MCH (RBC) [Entitic mass] 31.4 pg 27.0-32.0 [facility] MCHC Auto (RBC) [Mass/Vol]Or dered By: Rodrigo Simmons on 05-29-2023 MCHC (RBC) [Mass/Vol] 34.3 g/dL 32-36 [facility] No Panel InformationOrdered By: Rodrigo Simmons on 05-29-2023 Estimated GFR (MDRD) Amer 77 mL/min >60 [facility] Comment on above: GFR Calc Estimated GFR (MDRD) Non-Af Amer 64 mL/min >60 [facility] Comment on above: Non- GFR Calc Platelets bldOrdered By: Rin Simmons on 05-29-2023 Platelets (Bld) [#/Vol] 206 10*3/uL 150-450 [facility] Serum or plasma calcium ada urement (mass/volume)Ordered By: Rdorigo Simmons on 05-29-2023 Calcium [Mass/Vol] 9.7 mg/dL 8.5-10.1 [facility] Serum or plasma creatinine m easurement (mass/volume)Ordered By: Rodrigo Simmons on 05-29-2023 Creatinine [Mass/Vol] 1.21 mg/dL 0.70-1.30 [facility] Comment on above: The validity of the calculated GFR & GFRAA in patients over 70 years has not been determined. Clinical correlation is essential. Serum or plasma urea nitroge n measurement (mass/volume)Ordered By: Rodrigo Simmons on 05-29-2023 Urea nitrogen [Mass/Vol] 20 mg/dL 7-18 [facility] Thin prep Papanicolaou smear with manual screeningOrdered By: Rodrigo Simmons on 05-29-2023 Thin prep Papanicolaou smear with manual screening 3 5-15 [facility] Whole blood hemoglobin A1c/t otal hemoglobin ratio (mass fraction)Ordered By: Rodrigo Simmons on 05-29-2023 HbA1c (Bld) [Mass fraction] 7.6 % 3.8-5.6 [facility] Comment on above: Normal < 5.7 % Predi abetic 5.7 - 6.4 % Diabetic >or= 6.5 % Please note range changes. Absolute lymphocyte countOrd ered By: Dr. Dan on 12-17-2022 Lymphocytes Auto (Unsp spec) [#/Vol] 1.72 10*3/uL 0.83-4.51 [facility] Basophil percentageOrdered B y: Dr. Dan on 12-17-2022 Basophils/100 WBC (Bld) 0.7 % 0-1 [facility] Bilirubin [Mass/Vol] 0.60 mg/dL 0.20-1.00 [facility] Comment on above: For patients on eltr ombopag therapy, use of Dimension Williams TBIL is not recommended. Chloride [Moles/Vol] 107 mmol/L 98-107 [facility] Cholesterol [Mass/Vol] 119 mg/dL <200 [facility] Comment on above: <200 mg/dL Desirable 200-240 mg/dL Borderline >240 mg/dL High Risk Eosinophils/100 WBC (Bld) 4.8 % 0-5 [facility] Glucose [Mass/Vol] 168 mg/dL 74-106 [facility] Comment on above: Fasting Glucose resu lt greater than or equal to 126 mg/dL suggests DIABETES MELLITUS per A.D.A. criteria. Neutrophils (Bld) [#/Vol] 4.0 10*3/uL 2.0-7.7 [facility] Neutrophils/100 WBC (Bld) 60.0 % 47-70 [facility] Potassium [Moles/Vol] 4.2 mmol/L 3.5-5.1 [facility] Protein [Mass/Vol] 6.8 g/dL 6.4-8.2 [facility] Sodium [Moles/Vol] 140 mmol/L 136-145 [facility] Triglyceride [Mass/Vol] 89 mg/dL <199 [facility] Comment on above: The drugs N-Acetylcy steine and Metamizole may falsely depress this assay.Serum Triglycerides Reference Interval Normal <150 mg/dL Borderline high 150 - 199 mg/dL High 200 - 499 mg/dL Very High > or = 500 mg/dL WBC (Bld) [#/Vol] 6.7 10*3/uL 4.4-11.0 [facility] Blood erythrocytes count (nu mber/volume)Ordered By: Dr. Dan on 12-17-2022 RBC (Bld) [#/Vol] 5.01 10*6/uL 4.6-6.2 [facility] Blood hemoglobin measurement (mass/volume)Ordered By: Dr. Dan on 12-17-2022 Hemoglobin (Bld) [Mass/Vol] 15.6 g/dL 13.0-16.5 [facility] Blood lymphocytes/100 leukoc ytesOrdered By: Dr. Dan on 12-17-2022 Lymphocytes/100 WBC (Bld) 25.7 % 19-41 [facility] Blood monocytes/100 leukocyt esOrdered By: Dr. Dan on 12-17-2022 Monocytes/100 WBC (Bld) 8.7 % 0-10 [facility] Blood platelet mean volumeOr dered By: Dr. Dan on 12-17-2022 Platelet mean volume (Bld) [Entitic vol] 11.1 fL 6.2-12.0 [facility] Determination of erythrocyte mean corpuscular volume (MCV)Ordered By: Dr. Dan on 12-17-2022 MCV (RBC) [Entitic vol] 91.8 fL 80-94 [facility] Hematocrit Auto (Bld) [Volum e fraction]Ordered By: Dr. Dan on 12-17-2022 Hematocrit (Bld) [Volume fraction] 46.0 % 40-54 [facility] Laboratory - Chemistry and C hemistry - challengeOrdered By: Dr. Dan on 12-17-2022 ALP [Catalytic activity/Vol] 93 U/L 45-117 [facility] ALT [Catalytic activity/Vol] 42 U/L 16-61 [facility] CO2 [Moles/Vol] 24.0 mmol/L 21.0-32.0 [facility] Globulin (S) [Mass/Vol] 3.1 g/dL 2.2-4.2 [facility] Urea nitrogen/Creatinine [Mass ratio] 19.6 mg/mg 10-20 [facility] Laboratory - Hematology and Cell countsOrdered By: Dr. Dan on 12-17-2022 Erythrocyte distribution width (RBC) [Entitic vol] 41.9 fL 35.1-43.9 [facility] Erythrocyte distribution width (RBC) [Ratio] 12.4 % 11.6-14.6 [facility] Immature granulocytes/100 WBC (Bld) 0.100 % 0.0-0.9 [facility] Comment on above: IG% - Immature Granu locytes (promyelocytes, myelocytes and metamyelocytes) > 1% indicates that a LEFT SHIFT is Present. MCH (RBC) [Entitic mass] 31.1 pg 27.0-32.0 [facility] Nucleated RBC/100 WBC (Bld) [Ratio] 0 % 0-5 [facility] MCHC Auto (RBC) [Mass/Vol]Or dered By: Dr. Dan on 12-17-2022 MCHC (RBC) [Mass/Vol] 33.9 g/dL 32-36 [facility] No Panel InformationOrdered By: Dr. Dan on 12-17-2022 Estimated GFR (MDRD) Amer 114 mL/min >60 [facility] Comment on above: GFR Calc Estimated GFR (MDRD) Non-Af Amer 94 mL/min >60 [facility] Comment on above: Non- GFR Calc Thyroid Stimulating Hormone (TSH) 2.79 uIU/mL 0.358-3.74 [facility] Platelets bldOrdered By: Dr. Dan on 12-17-2022 Platelets (Bld) [#/Vol] 183 10*3/uL 150-450 [facility] Serum or plasma albumin ada urement (mass/volume)Ordered By: Dr. Dan on 12-17-2022 Albumin [Mass/Vol] 3.7 g/dL 3.2-5.0 [facility] Serum or plasma albumin/glob ulin mass ratioOrdered By: Dr. Dan on 12-17-2022 Albumin/Globulin [Mass ratio] 1.2 {ratio} 0.9-2.4 [facility] Serum or plasma calcium ada urement (mass/volume)Ordered By: Dr. Dan on 12-17-2022 Calcium [Mass/Vol] 9.5 mg/dL 8.5-10.1 [facility] Serum or plasma cholesterol in HDL measurement (mass/volume)Ordered By: Dr. Dan on 12-17-2022 Cholesterol in HDL [Mass/Vol] 37 mg/dL >40 [facility] Comment on above: The drugs N-Acetylcy steine and Metamizole may falsely depress this assay. Reference Range HDL <40 mg/dL Low HDL Cholesterol HDL >or= 60 mg/dL High HDL Cholesterol Serum or plasma cholesterol in VLDL measurement (mass/volume)Ordered By: Dr. Dan on 12-17-2022 Cholesterol in VLDL [Mass/Vol] 18 mg/dL 5-40 [facility] Serum or plasma creatinine m easurement (mass/volume)Ordered By: Dr. Dan on 12-17-2022 Creatinine [Mass/Vol] 0.87 mg/dL 0.70-1.30 [facility] Comment on above: The validity of the calculated GFR & GFRAA in patients over 70 years has not been determined. Clinical correlation is essential. Serum or plasma low density lipoprotein (LDL) cholesterol measurement (mass/volume)Ordered By: Dr. Dan on 12-17-2022 Cholesterol in LDL [Mass/Vol] 64 mg/dL 0-130 [facility] Serum or plasma urea nitroge n measurement (mass/volume)Ordered By: Dr. Dan on 12-17-2022 Urea nitrogen [Mass/Vol] 17 mg/dL 7-18 [facility] Thin prep Papanicolaou smear with manual screeningOrdered By: Dr. Dan on 12-17-2022 Thin prep Papanicolaou smear with manual screening 21 U/L 15-37 [facility] Thin prep Papanicolaou smear with manual screening 9 5-15 [facility] Thin prep Papanicolaou smear with manual screening 9.1 mg/L NO RANGE EST. [facility] Whole blood hemoglobin A1c/t otal hemoglobin ratio (mass fraction)Ordered By: Dr. Dan on 12-17-2022 HbA1c (Bld) [Mass fraction] 7.5 % 3.8-5.6 [facility] Comment on above: Normal < 5.7 % Predi abetic 5.7 - 6.4 % Diabetic >or= 6.5 % Please note range changes. Glucose Glucometer (BldC) [M ass/Vol]Ordered By: Dr. Miller on 10-04-2022 Glucose [Mass/Vol] 168 mg/dL 74-106 [facility] Comment on above: MANAGEMENT OF PATIEN T CARE PER NURSING PROTOCOL PSA SerPl-ncon 08-20-2022 Prostate specific Ag [Mass/Vol] ng/mL Normal <2.60 [facility] Comment on above: Order Comment: Speci men Type: BLOOD SPECIMEN Ordering Facility: [facility] Address: [address] [place] [address] Result Comment: Tota l PSA test methodology used is the Electrochemiluminescence Immunoassay by [employer]. Total PSA values by differing methodologies cannot be interchanged. Performed By: #### 2 [id number] #### [facility] CLIA [id number] [address] [place] [address] [facility] - Microbiology an d Antimicrobial susceptibilityOrdered By: Marilu Howard on 07-24-2022 SARS-CoV-2 (COVID-19) RNA REGIS+probe Ql (Unsp spec) Detected Not Detect [facility] Comment on above: Normal Reference Ran ge: Not DetectedMethod:(RT-PCR) real-time reverse transcriptase PCRLuminex DAVE Instrument*The Food and Drug Administration (FDA) has issued an Emergency Use Authorization (EAU) for the [employer] SARS-CoV-2 Assay for the rapid detection of the virus that causes COVID-19. This test has been validated, but the FDAs independent review of this validation is pending.*Negative results do not preclude infection and should not be used as the sole basis for treatment or patient management. Optimum specimen types and timing for peak viral levels during infections caused by SARS-CoV-2 have not been determined. Collection of multiple specimens from the same patient may be necessary to detect the virus. The possibility of a false negative result should be considered if the patient has clinical presentation or has had recent exposure. Lui 06-27-2022 [facility] Telephone ([facility]) -- MATTHEW TOMLIN ([id number]) 1960 M Date Time Provider Department 06/27/22 TIBURCIO WEBB [facility] During your visit today, we recorded the following information about you: Chery Polanco 06/27/2022 1:56 PM Signed Spoke to patient and confirmed change of appointment Allergies As of Date: 06/27/2022 (No Known Allergies) Date Reviewed: 08/28/2020 Reviewed by: Tiburcio Webb - Fully Assessed Reason for Visit: Appointment [[id number]] Prescriptions as of 06/27/2022 - aspirin-calcium carbonate 81 mg-300 mg calcium(777 mg) tab Take 81 mg by mouth. - omeprazole (PRILOSEC) 20 mg capsule Take 20 mg by mouth. - amLODIPine (NORVASC) 10 mg tablet Take 10 mg by mouth. - metFORMIN (GLUCOPHAGE) 500 mg tablet - Benazepril HCl 40 mg tablet Take 40 mg by mouth. - atorvastatin (LIPITOR) 80 mg tablet - metoprolol tartrate, short acting, (LOPRESSOR) 25 mg tablet Take 25 mg by mouth. - ciprofloxacin HCl (CIPRO) 500 mg tablet Take 1 tablet by mouth twice daily. - docusate sodium (COLACE) 100 mg capsule Take 1 capsule by mouth twice daily. - oxyCODONE-acetaminophen (PERCOCET) 5-325 mg tablet Take 1-2 tablets by mouth every 4 hours as needed. - omeprazole (PRILOSEC) 20 mg capsule Take 20 mg by mouth once daily. - amLODIPine (NORVASC) 10 mg tablet Take 10 mg by mouth once daily. - Benazepril HCl 40 mg tablet Take 40 mg by mouth once daily. - metoprolol tartrate, short acting, (LOPRESSOR) 25 mg tablet Take 25 mg by mouth twice daily. - aspirin, enteric coated (ASPIRIN, ENTERIC COATED) 81 mg EC tablet Take 81 mg by mouth once daily. - atorvastatin (LIPITOR) 20 mg tablet Take 20 mg by mouth once daily. Problem List As Of Date 06/27/2022 Noted Resolved Unspecified essential hypertension [I10] Hyperlipemia [E78.5] Migraines [G43.909] Esophageal reflux [K21.9] 06/21/2011 Esophagitis, unspecified [K20.90] 06/21/2011 Diaphragmatic hernia without mention of obstruc*06/21/2011 Prostate cancer (HCC) [C61] 03/04/2016 Elevated prostate specific antigen (PSA) [R97.2*03/04/2016 Essential hypertension [I10] 06/17/2016 CAD (coronary artery disease) [I25.10] 06/17/2016 Encounter Status:Closed by CHERY RIVERA on 06/27/22 [facility] Absolute lymphocyte counton 05-29-2022 Lymphocytes Auto (Unsp spec) [#/Vol] 1.57 10*3/uL 0.83-4.51 [facility] Work Phone: Basophil percentageon 2021 Basophils/100 WBC (Bld) 0.6 % 0-1 [facility] Work Phone: Bilirubin [Mass/Vol] 0.70 mg/dL 0.20-1.00 [facility] Work Phone: Comment on above: For patients on eltr ombopag therapy, use of Dimension Williams TBIL is not recommended. Chloride [Moles/Vol] 108 mmol/L 98-107 [facility] Work Phone: Cholesterol [Mass/Vol] 125 mg/dL <200 [facility] Work Phone: Comment on above: <200 mg/dL Desirable 200-240 mg/dL Borderline >240 mg/dL High Risk Eosinophils/100 WBC (Bld) 6.1 % 0-5 [facility] Work Phone: [phone] Glucose [Mass/Vol] 154 mg/dL 74-106 [facility] Work Phone: Comment on above: Fasting Glucose resu lt greater than or equal to 126 mg/dL suggests DIABETES MELLITUS per A.D.A. criteria. Neutrophils (Bld) [#/Vol] 3.9 10*3/uL 2.0-7.7 [facility] Work Phone: [phone] Neutrophils/100 WBC (Bld) 61.1 % 47-70 [facility] Work Phone: [phone] Potassium [Moles/Vol] 4.0 mmol/L 3.5-5.1 [facility] Work Phone: [phone] Protein [Mass/Vol] 7.0 g/dL 6.4-8.2 [facility] Work Phone: [phone] Sodium [Moles/Vol] 142 mmol/L 136-145 [facility] Work Phone: [phone] Triglyceride [Mass/Vol] 76 mg/dL <199 [facility] Work Phone: Comment on above: The drugs N-Acetylcy steine and Metamizole may falsely depress this assay.Serum Triglycerides Reference Interval Normal <150 mg/dL Borderline high 150 - 199 mg/dL High 200 - 499 mg/dL Very High > or = 500 mg/dL WBC (Bld) [#/Vol] 6.4 10*3/uL 4.4-11.0 [facility] Work Phone: [phone] Blood erythrocytes count (nu mber/volume)on 05-29-2022 RBC (Bld) [#/Vol] 4.99 10*6/uL 4.6-6.2 [facility] Work Phone: [phone] Blood hemoglobin measurement (mass/volume)on 05-29-2022 Hemoglobin (Bld) [Mass/Vol] 15.4 g/dL 13.0-16.5 [facility] Work Phone: [phone] Blood lymphocytes/100 leukoc yteson 05-29-2022 Lymphocytes/100 WBC (Bld) 24.6 % 19-41 [facility] Work Phone: Blood monocytes/100 leukocyt eson 05-29-2022 Monocytes/100 WBC (Bld) 7.4 % 0-10 [facility] Work Phone: Blood platelet mean volumeon 05-29-2022 Platelet mean volume (Bld) [Entitic vol] 11.6 fL 6.2-12.0 [facility] Work Phone: Determination of erythrocyte mean corpuscular volume (MCV)on 05-29-2022 MCV (RBC) [Entitic vol] 91.8 fL 80-94 [facility] Work Phone: Hematocrit Auto (Bld) [Volum e fraction]on 05-29-2022 Hematocrit (Bld) [Volume fraction] 45.8 % 40-54 [facility] Work Phone: [phone] Laboratory - Chemistry and C hemistry - challengeon 05-29-2022 ALP [Catalytic activity/Vol] 79 U/L 45-117 [facility] Work Phone: ALT [Catalytic activity/Vol] 46 U/L 16-61 [facility] Work Phone: CO2 [Moles/Vol] 27.0 mmol/L 21.0-32.0 [facility] Work Phone: [phone] Globulin (S) [Mass/Vol] 3.1 g/dL 2.2-4.2 [facility] Work Phone: Urea nitrogen/Creatinine [Mass ratio] 20.9 mg/mg 10-20 [facility] Work Phone: Laboratory - Hematology and Cell countson 05-29-2022 Erythrocyte distribution width (RBC) [Entitic vol] 42.4 fL 35.1-43.9 [facility] Work Phone: Erythrocyte distribution width (RBC) [Ratio] 12.8 % 11.6-14.6 [facility] Work Phone: Immature granulocytes/100 WBC (Bld) 0.200 % 0.0-0.9 [facility] Work Phone: Comment on above: IG% - Immature Granu locytes (promyelocytes, myelocytes and metamyelocytes) > 1% indicates that a LEFT SHIFT is Present. MCH (RBC) [Entitic mass] 30.9 pg 27.0-32.0 [facility] Work Phone: Nucleated RBC/100 WBC (Bld) [Ratio] 0 % 0-5 [facility] Work Phone: MCHC Auto (RBC) [Mass/Vol]on 05-29-2022 MCHC (RBC) [Mass/Vol] 33.6 g/dL 32-36 [facility] Work Phone: No Panel Informationon 05-29 Estimated GFR (MDRD) Amer 108 mL/min >60 [facility] Work Phone: Comment on above: GFR Calc Estimated GFR (MDRD) Non-Af Amer 89 mL/min >60 [facility] Work Phone: Comment on above: Non- GFR Calc Prostate Specific Antigen Total < 0.01 ng/mL 0.0-4.0 [facility] Work Phone: Comment on above: This test was perfor med using the TPSA assay method for the[employer] chemistry system. Values obtained with differentassay methods cannot be used interchangably.When changing PSA assays in the course of monitoring apatient, additional sequential testing should be carriedout to confirm baseline values. Thyroid Stimulating Hormone (TSH) 1.76 uIU/mL 0.358-3.74 [facility] Work Phone: Vitamin D 25-Hydroxy 35.3 ng/mL [facility] Work Phone: Comment on above: Vitamin D 25(OH) Sta tus Range Deficiency <20 ng/mL (50nmol/L) Insufficiency 20 - 30 ng/mL (50 - 75 nmol/L) Sufficiency 30 - 100 ng/mL (75 - 250 nmol/L) Toxicity >100 ng/mL (>250 nmol/L) Platelets bldon 05-29-2022 Platelets (Bld) [#/Vol] 205 10*3/uL 150-450 [facility] Work Phone: Serum or plasma albumin ada urement (mass/volume)on 05-29-2022 Albumin [Mass/Vol] 3.9 g/dL 3.2-5.0 [facility] Work Phone: Serum or plasma albumin/glob ulin mass ratioon 05-29-2022 Albumin/Globulin [Mass ratio] 1.3 {ratio} 0.9-2.4 [facility] Work Phone: Serum or plasma calcium ada urement (mass/volume)on 05-29-2022 Calcium [Mass/Vol] 9.3 mg/dL 8.5-10.1 [facility] Work Phone: Serum or plasma cholesterol in HDL measurement (mass/volume)on 05-29-2022 Cholesterol in HDL [Mass/Vol] 41 mg/dL >40 [facility] Work Phone: Comment on above: The drugs N-Acetylcy steine and Metamizole may falsely depress this assay. Reference Range HDL <40 mg/dL Low HDL Cholesterol HDL >or= 60 mg/dL High HDL Cholesterol Serum or plasma cholesterol in VLDL measurement (mass/volume)on 05-29-2022 Cholesterol in VLDL [Mass/Vol] 15 mg/dL 5-40 [facility] Work Phone: Serum or plasma creatinine m easurement (mass/volume)on 05-29-2022 Creatinine [Mass/Vol] 0.91 mg/dL 0.70-1.30 [facility] Work Phone: Comment on above: The validity of the calculated GFR & GFRAA in patients over 70 years has not been determined. Clinical correlation is essential. Serum or plasma low density lipoprotein (LDL) cholesterol measurement (mass/volume)on 05-29-2022 Cholesterol in LDL [Mass/Vol] 69 mg/dL 0-130 [facility] Work Phone: Serum or plasma urea nitroge n measurement (mass/volume)on 05-29-2022 Urea nitrogen [Mass/Vol] 19 mg/dL 7-18 [facility] Work Phone: Thin prep Papanicolaou smear with manual screeningon 05-29-2022 Thin prep Papanicolaou smear with manual screening 18 U/L 15-37 [facility] Work Phone: Thin prep Papanicolaou smear with manual screening 7 5-15 [facility] Work Phone: Whole blood hemoglobin A1c/t otal hemoglobin ratio (mass fraction)on 05-29-2022 HbA1c (Bld) [Mass fraction] 7.3 % 3.8-5.6 [facility] Work Phone: Comment on above: Normal < 5.7 % Predi abetic 5.7 - 6.4 % Diabetic >or= 6.5 % Please note range changes. Absolute lymphocyte counton 10-17-2021 Lymphocytes Auto (Unsp spec) [#/Vol] 1.63 10*3/uL 0.83-4.51 [facility] Work Phone: Basophil percentageon 2021 Basophil percentage 0 SEEN /hpf [facility] Work Phone: Basophils/100 WBC (Bld) 0.5 % 0-1 [facility] Work Phone: Bilirubin [Mass/Vol] 0.70 mg/dL 0.20-1.00 [facility] Work Phone: Comment on above: For patients on eltr ombopag therapy, use of Dimension Williams TBIL is not recommended. Chloride [Moles/Vol] 105 mmol/L 98-107 [facility] Work Phone: Cholesterol [Mass/Vol] 112 mg/dL <200 [facility] Work Phone: Comment on above: <200 mg/dL Desirable 200-240 mg/dL Borderline >240 mg/dL High Risk Eosinophils/100 WBC (Bld) 4.3 % 0-5 [facility] Work Phone: Glucose [Mass/Vol] 137 mg/dL 74-106 [facility] Work Phone: Comment on above: Fasting Glucose resu lt greater than or equal to 126 mg/dL suggests DIABETES MELLITUS per A.D.A. criteria. Neutrophils (Bld) [#/Vol] 3.4 10*3/uL 2.0-7.7 [facility] Work Phone: Neutrophils/100 WBC (Bld) 58.6 % 47-70 [facility] Work Phone: Potassium [Moles/Vol] 4.1 mmol/L 3.5-5.1 [facility] Work Phone: Protein [Mass/Vol] 7.0 g/dL 6.4-8.2 [facility] Work Phone: Sodium [Moles/Vol] 138 mmol/L 136-145 [facility] Work Phone: Triglyceride [Mass/Vol] 66 mg/dL [facility] Work Phone: Comment on above: The drugs N-Acetylcy steine and Metamizole may falsely depress this assay.Serum Triglycerides Reference Interval Normal <150 mg/dL Borderline high 150 - 199 mg/dL High 200 - 499 mg/dL Very High > or = 500 mg/dL WBC (Bld) [#/Vol] 5.8 10*3/uL 4.4-11.0 [facility] Work Phone: Bilirubin Test strip Ql (U)o n 10-17-2021 Bilirubin Ql (U) Negative Negative [facility] Work Phone: Blood erythrocytes count (nu mber/volume)on 10-17-2021 RBC (Bld) [#/Vol] 5.06 10*6/uL 4.6-6.2 [facility] Work Phone: Blood hemoglobin measurement (mass/volume)on 10-17-2021 Hemoglobin (Bld) [Mass/Vol] 15.6 g/dL 13.0-16.5 [facility] Work Phone: Blood lymphocytes/100 leukoc yteson 10-17-2021 Lymphocytes/100 WBC (Bld) 28.1 % 19-41 [facility] Work Phone: Blood monocytes/100 leukocyt eson 10-17-2021 Monocytes/100 WBC (Bld) 8.3 % 0-10 [facility] Work Phone: Blood platelet mean volumeon 10-17-2021 Platelet mean volume (Bld) [Entitic vol] 11.2 fL 6.2-12.0 [facility] Work Phone: [phone] Determination of erythrocyte mean corpuscular volume (MCV)on 10-17-2021 MCV (RBC) [Entitic vol] 91.7 fL 80-94 [facility] Work Phone: [phone] Hematocrit Auto (Bld) [Volum e fraction]on 10-17-2021 Hematocrit (Bld) [Volume fraction] 46.4 % 40-54 [facility] Work Phone: [phone] Ketones Test strip Ql (U)on 10-17-2021 Ketones Ql (U) Negative Negative [facility] Work Phone: [phone] Laboratory - Chemistry and C hemistry - challengeon 10-17-2021 ALP [Catalytic activity/Vol] 71 U/L 45-117 [facility] Work Phone: [phone] ALT [Catalytic activity/Vol] 37 U/L 16-61 [facility] Work Phone: [phone] CO2 [Moles/Vol] 23.0 mmol/L 21.0-32.0 [facility] Work Phone: [phone] Globulin (S) [Mass/Vol] 3.1 g/dL 2.2-4.2 [facility] Work Phone: [phone] Urea nitrogen/Creatinine [Mass ratio] 20.9 mg/mg 10-20 [facility] Work Phone: Laboratory - Hematology and Cell countson 10-17-2021 Erythrocyte distribution width (RBC) [Entitic vol] 42.5 fL 35.1-43.9 [facility] Work Phone: [phone] Erythrocyte distribution width (RBC) [Ratio] 12.7 % 11.6-14.6 [facility] Work Phone: Immature granulocytes/100 WBC (Bld) 0.200 % 0.0-0.9 [facility] Work Phone: Comment on above: IG% - Immature Granu locytes (promyelocytes, myelocytes and metamyelocytes) > 1% indicates that a LEFT SHIFT is Present. MCH (RBC) [Entitic mass] 30.8 pg 27.0-32.0 [facility] Work Phone: Nucleated RBC/100 WBC (Bld) [Ratio] 0 % 0-5 [facility] Work Phone: MCHC Auto (RBC) [Mass/Vol]on 10-17-2021 MCHC (RBC) [Mass/Vol] 33.6 g/dL 32-36 [facility] Work Phone: Mucus LM Ql (Urine sed)on Mucus Ql (Urine sed) 0 SEEN /hpf [facility] Work Phone: Nitrite Test strip Ql (U)on 10-17-2021 Nitrite Ql (U) Negative Negative [facility] Work Phone: No Panel Informationon 10-17 Estimated GFR (MDRD) Amer 102 mL/min >60 [facility] Work Phone: Comment on above: GFR Calc Estimated GFR (MDRD) Non-Af Amer 84 mL/min >60 [facility] Work Phone: Comment on above: Non- GFR Calc Thyroid Stimulating Hormone (TSH) 1.87 uIU/mL 0.358-3.74 [facility] Work Phone: Urine Microalbumin/Creatinine Ratio 7.9 mg/g CRE <30 [facility] Work Phone: Platelets bldon 10-17-2021 Platelets (Bld) [#/Vol] 184 10*3/uL 150-450 [facility] Work Phone: Protein Test strip Ql (U)on 10-17-2021 Protein Ql (U) Negative Negative [facility] Work Phone: Serum or plasma albumin ada urement (mass/volume)on 10-17-2021 Albumin [Mass/Vol] 3.9 g/dL 3.2-5.0 [facility] Work Phone: Serum or plasma albumin/glob ulin mass ratioon 10-17-2021 Albumin/Globulin [Mass ratio] 1.3 {ratio} 0.9-2.4 [facility] Work Phone: Serum or plasma calcium ada urement (mass/volume)on 10-17-2021 Calcium [Mass/Vol] 9.1 mg/dL 8.5-10.1 [facility] Work Phone: Serum or plasma cholesterol in HDL measurement (mass/volume)on 10-17-2021 Cholesterol in HDL [Mass/Vol] 36 mg/dL [facility] Work Phone: Comment on above: The drugs N-Acetylcy steine and Metamizole may falsely depress this assay. Reference Range HDL <40 mg/dL Low HDL Cholesterol HDL >or= 60 mg/dL High HDL Cholesterol Serum or plasma cholesterol in VLDL measurement (mass/volume)on 10-17-2021 Cholesterol in VLDL [Mass/Vol] 13 mg/dL 5-40 [facility] Work Phone: Serum or plasma creatinine m easurement (mass/volume)on 10-17-2021 Creatinine [Mass/Vol] 0.96 mg/dL 0.70-1.30 [facility] Work Phone: Comment on above: The validity of the calculated GFR & GFRAA in patients over 70 years has not been determined. Clinical correlation is essential. Serum or plasma low density lipoprotein (LDL) cholesterol measurement (mass/volume)on 10-17-2021 Cholesterol in LDL [Mass/Vol] 63 mg/dL 0-130 [facility] Work Phone: Serum or plasma urea nitroge n measurement (mass/volume)on 10-17-2021 Urea nitrogen [Mass/Vol] 20 mg/dL 7-18 [facility] Work Phone: Squamous epithelial cells de tection in urine sediment by light microscopyon 10-17-2021 Epithelial cells.squamous LM Ql (Urine sed) 0 SEEN /hpf [facility] Work Phone: Thin prep Papanicolaou smear with manual screeningon 10-17-2021 Thin prep Papanicolaou smear with manual screening 19 U/L 15-37 [facility] Work Phone: Thin prep Papanicolaou smear with manual screening 10 5-15 [facility] Work Phone: Thin prep Papanicolaou smear with manual screening 10.5 mg/L NO RANGE EST. [facility] Work Phone: Urine blood detectionon RBC Ql (U) Negative Negative [facility] Work Phone: RBC Ql (U) 0 SEEN /hpf [facility] Work Phone: Urine clarityon 10-17-2021 Clarity (U) Clear Clear [facility] Work Phone: Urine color determinationon 10-17-2021 Color (U) Yellow Yellow [facility] Work Phone: Urine creatinine measurement (mass/volume)on 10-17-2021 Creatinine (U) [Mass/Vol] 133.00 mg/dL NO RANGE EST. [facility] Work Phone: Urine glucose detectionon Glucose Ql (U) Normal mg/dl Normal [facility] Work Phone: Urine leukocyte esterase det ection by dipstickon 10-17-2021 Leukocyte esterase Test strip Ql (U) Negative Negative [facility] Work Phone: Urine pHon 10-17-2021 pH (U) 5.0 [pH] [facility] Work Phone: Urine sediment bacteria coun t by microscopy (number/high power field)on 10-17-2021 Bacteria LM.HPF (Urine sed) [#/Area] 0 /[HPF] None Seen [facility] Work Phone: Urine specific gravity measu rementon 10-17-2021 Specific gravity (U) [Rel density] 1.020 [facility] Work Phone: Urobilinogen Auto test strip Ql (U)on 10-17-2021 Urobilinogen Ql (U) Normal mg/dl Normal [facility] Work Phone: Whole blood hemoglobin A1c/t otal hemoglobin ratio (mass fraction)on 10-17-2021 HbA1c (Bld) [Mass fraction] 6.7 % 3.8-5.6 [facility] Work Phone: Comment on above: Normal < 5.7 % Predi abetic 5.7 - 6.4 % Diabetic >or= 6.5 % Please note range changes. Basophil percentageon 2021 Creatinine [Mass/Vol] 0.8 mg/dL 0.70-1.30 [facility] Work Phone: No Panel Informationon 08-31 Bedside Estimated GFR (eGFR) > 60.0000 mL/min >60 [facility] Work Phone: PSA, Diagnosticon 08-22-2021 PSA, Diagnostic <0.02 Normal <2.60 [facility] Comment on above: Result Comment: Tota l PSA test methodology used is the electrochemiluminescence immunoassay by [facility]. Total PSA values by differing methodologies cannot be interchanged. Performed By: #### P #### [facility] [address] [address] ECHO Complete 2D W Doppler W ColorOrdered By: Freya Story on 08-17-2019 TRANSTHORACIC ECHOCARDIOGRAM PATIENT: Matthew Tomlin STUDY DATE: 08/17/2019 : 1960 AGE: 59 HT/WT: 167.6 cm (66 72.6 kg in) (159.7 lb) GENDER: M BP: 128 / 88 LOCATION: [facility] PATIENT Outpatient [facility] STATUS: *ORDERING PHYSICIAN: * Freya Story *READING PHYSICIAN: * Stefan Pepe, *PRESSURE TANK OPERATOR: * DO J Carlos, [facility], [facility] INDICATIONS: Systolic murmur (R01.1). CONCLUSIONS SUMMARY: 1. Left ventricle: There are no regional wall motion abnormalities. Left ventricular diastolic function parameters are normal. 2. Right ventricle: The cavity size is normal. Systolic function is normal. Right ventricular systolic pressure is within the normal range. 3. Left atrium: The atrium is normal in size. 4. Right atrium: The atrium is normal in size. 5. No significant valve disease. 6. Ascending aorta: The ascending aorta measures 4.0 cm (AP) and is mildly dilated. STUDY DATA: Complete transthoracic echocardiogram. Procedure: Image quality was fair. The study was technically limited due to poor acoustic window availability, respiratory interference, small rib spaces, and off axis. M-mode, complete 2D, strain rate, complete spectral Doppler, and color flow Doppler images were acquired and archived for permanent storage and are available for subsequent review. Study status: Routine. Patient status: Outpatient. FINDINGS LEFT VENTRICLE: Average LV Global Longitudinal Strain is -18 The cavity size is normal. Wall thickness is normal. Systolic function is normal by the biplane method of disks. The estimated ejection fraction is 62%. There are no regional wall motion abnormalities. Left ventricular diastolic function parameters are normal. RIGHT VENTRICLE: The cavity size is normal. Systolic function is normal. Right ventricular systolic pressure is within the normal range. VENTRICULAR SEPTUM: There is no evidence of a ventricular septal defect. LEFT ATRIUM: The atrium is normal in size. RIGHT ATRIUM: The atrium is normal in size. ATRIAL SEPTUM: Color Doppler shows no shunt. MITRAL VALVE: Structurally normal valve. Doppler: There is mild, 1+ regurgitation. The peak diastolic gradient is 2 mm Hg. AORTIC VALVE: Structurally normal valve. Trileaflet. Doppler: There is no significant regurgitation. The peak systolic gradient is 7 mm Hg. The peak systolic velocity is 1.3 m/sec. TRICUSPID VALVE: Structurally normal valve. Doppler: There is trivial, less than 1+ regurgitation. PULMONIC VALVE: Structurally normal valve. Doppler: There is trivial, less than 1+ regurgitation. AORTA: The aorta is mildly dilated. Ascending aorta: The ascending aorta measures 4.0 cm (AP) and is mildly dilated. PULMONARY ARTERY: Main pulmonary artery: Normal. PERICARDIUM: There is no pericardial effusion. SYSTEMIC VEINS: Inferior vena cava: The vessel is normal. The IVC collapses by greater than 50% with inspiration. Measurements Value Reference Aortic root ID 3.4 cm <4.0 Aortic root ID, STJ, ED 3.0 cm 2.3 - 3.5 Aortic root ID/bsa, STJ, ED 1.6 cm/m^2 1.1 - 1.9 Value Reference Ascending aorta ID, A-P, S 4.0 cm Ascending aorta ID/bsa, A-P, S 2.2 cm/m^2 Left ventricle Value Reference GLS, 2D 17.71 % LV ID, ED 5.2 cm 4.2 - 5.8 LV ID, ES 3.6 cm 2.5 - 4.0 LV ID/bsa, ED 2.8 cm/m^2 2.2 - 3.0 LV ID/bsa, ES 2.0 cm/m^2 1.3 - 2.1 LV PW thickness, ED 0.9 cm 0.6 - 1.0 LV PW/LV ID ratio, ED 0.17 LV wall mass 189 g 96 - 200 LV wall mass/bsa 102 g/m^2 50 - 102 Stroke volume/bsa, 1-p A2C 38.2 ml/m^2 LV end-diastolic volume, 1-p A4C 90 ml 69 - 185 LV end-systolic volume, 1-p A4C 36 ml 22 - 78 LV end-diastolic volume, 2-p 104 ml 62 - 150 LV end-systolic volume, 2-p (more content not included)... [facility] Work [facility]: [place], [facility] Incoming Cardiology Results From Tab/Herminio - 08/17/2019 2:24 PM EST TRANSTHORACIC ECHOCARDIOGRAM PATIENT: Matthew Tomlin STUDY DATE: 08/17/2019 : 1960 AGE: 59 HT/WT: 167.6 cm (66 72.6 kg in) (159.7 lb) GENDER: M BP: 128 / 88 LOCATION: [facility] [employer] [facility] PATIENT Outpatient [facility] STATUS: *ORDERING PHYSICIAN: * Freya Story *READING PHYSICIAN: * Stefan Pepe, *PRESSURE TANK OPERATOR: * DO Whitman FSVM, [facility] INDICATIONS: Systolic murmur (R01.1). CONCLUSIONS SUMMARY: 1. Left ventricle: There are no regional wall motion abnormalities. Left ventricular diastolic function parameters are normal. 2. Right ventricle: The cavity size is normal. Systolic function is normal. Right ventricular systolic pressure is within the normal range. 3. Left atrium: The atrium is normal in size. 4. Right atrium: The atrium is normal in size. 5. No significant valve disease. 6. Ascending aorta: The ascending aorta measures 4.0 cm (AP) and is mildly dilated. STUDY DATA: Complete transthoracic echocardiogram. Procedure: Image quality was fair. The study was technically limited due to poor acoustic window availability, respiratory interference, small rib spaces, and off axis. M-mode, complete 2D, strain rate, complete spectral Doppler, and color flow Doppler images were acquired and archived for permanent storage and are available for subsequent review. Study status: Routine. Patient status: Outpatient. FINDINGS LEFT VENTRICLE: Average LV Global Longitudinal Strain is -18 The cavity size is normal. Wall thickness is normal. Systolic function is normal by the biplane method of disks. The estimated ejection fraction is 62%. There are no regional wall motion abnormalities. Left ventricular diastolic function parameters are normal. RIGHT VENTRICLE: The cavity size is normal. Systolic function is normal. Right ventricular systolic pressure is within the normal range. VENTRICULAR SEPTUM: There is no evidence of a ventricular septal defect. LEFT ATRIUM: The atrium is normal in size. RIGHT ATRIUM: The atrium is normal in size. ATRIAL SEPTUM: Color Doppler shows no shunt. MITRAL VALVE: Structurally normal valve. Doppler: There is mild, 1+ regurgitation. The peak diastolic gradient is 2 mm Hg. AORTIC VALVE: Structurally normal valve. Trileaflet. Doppler: There is no significant regurgitation. The peak systolic gradient is 7 mm Hg. The peak systolic velocity is 1.3 m/sec. TRICUSPID VALVE: Structurally normal valve. Doppler: There is trivial, less than 1+ regurgitation. PULMONIC VALVE: Structurally normal valve. Doppler: There is trivial, less than 1+ regurgitation. AORTA: The aorta is mildly dilated. Ascending aorta: The ascending aorta measures 4.0 cm (AP) and is mildly dilated. PULMONARY ARTERY: Main pulmonary artery: Normal. PERICARDIUM: There is no pericardial effusion. SYSTEMIC VEINS: Inferior vena cava: The vessel is normal. The IVC collapses by greater than 50% with inspiration. Measurements Value Reference Aortic root ID 3.4 cm <4.0 Aortic root ID, STJ, ED 3.0 cm 2.3 - 3.5 Aortic root ID/bsa, STJ, ED 1.6 cm/m^2 1.1 - 1.9 Value Reference Ascending aorta ID, A-P, S 4.0 cm Ascending aorta ID/bsa, A-P, S 2.2 cm/m^2 Left ventricle Value Reference GLS, 2D 17.71 % LV ID, ED 5.2 cm 4.2 - 5.8 LV ID, ES 3.6 cm 2.5 - 4.0 LV ID/bsa, ED 2.8 cm/m^2 2.2 - 3.0 LV ID/bsa, ES 2.0 cm/m^2 1.3 - 2.1 LV PW thickness, ED 0.9 cm 0.6 - 1.0 LV PW/LV ID ratio, ED 0.17 LV wall mass 189 g 96 - 200 LV wall mass/bsa 102 g/m^2 50 - 102 Stroke volume/bsa, 1-p A2C 38.2 ml/m^2 LV end-diastolic volume, 1-p A4C 90 ml 69 - 185 LV end-systolic volume, 1-p A4C 36 ml 22 - 78 LV end-diastolic volume, 2-p 104 ml 62 - 150 LV end-systolic volume, 2-p 40 ml 21 - 61 LV ejection fraction, 2-p 62 % 52 - 72 LV E/e', lateral 8.5 LV E/e', medial 16.9 LV E/e', average 11.3 Ventricular septum Value Reference IVS thickness, ED (H) 1.1 cm 0.6 - 1.0 LVOT Value Reference LVOT ID, A-P 1.9 cm LVOT mean velocity, S 0.7 m/sec LVOT peak gradient, S 4 mm Hg Stroke volume (SV), LVOT DP 57 ml Stroke index (SV/bsa), LVOT DP 31 ml/m^2 Aortic valve Value Reference Aortic valve peak velocity, S 1.3 m/sec Aortic peak gradient, S 7 mm Hg Left atrium Value Reference LA (more content not included)... [facility] Work Phone: Echo Complete w/wo Contrasto n 08-17-2019 Echo Complete w/wo Contrast Patient Name: MATTHEW TOMLIN Ultrasound Exam Date/Time 08/17/2019 11:52:27 EST Exam Echo Complete w/wo Contrast Ordering Physician SAUL, MSN, CUSTODIAN MANAGER, FREYA Davis Accession Number [id number] Reason For Exam Systolic murmur Report TRANSTHORACIC ECHOCARDIOGRAM PATIENT: Matthew Tomlin STUDY DATE: 08/17/2019 : 1960 AGE: 59 HT/WT: 167.6 cm (66 72.6 kg in) (159.7 lb) GENDER: M BP: 128 / 88 LOCATION: [facility] PATIENT Outpatient [facility] STATUS: *ORDERING PHYSICIAN: * Freya Story *READING PHYSICIAN: * Stefan Pepe, *PRESSURE TANK OPERATOR: * DO J Carlos, FS, [facility] INDICATIONS: Systolic murmur (R01.1). CONCLUSIONS SUMMARY: 1. Left ventricle: There are no regional wall motion abnormalities. Left ventricular diastolic function parameters are normal. 2. Right ventricle: The cavity size is normal. Systolic function is normal. Right ventricular systolic pressure is within the normal range. 3. Left atrium: The atrium is normal in size. 4. Right atrium: The atrium is normal in size. 5. No significant valve disease. 6. Ascending aorta: The ascending aorta measures 4.0 cm (AP) and is mildly dilated. STUDY DATA: Complete transthoracic echocardiogram. Procedure: Image quality was fair. The study was technically limited due to poor acoustic window availability, respiratory interference, small rib spaces, and off axis. M-mode, complete 2D, strain rate, complete spectral Doppler, and color flow Doppler images were acquired and archived for permanent storage and are available for subsequent review. Study status: Routine. Patient status: Outpatient. FINDINGS LEFT VENTRICLE: Average LV Global Longitudinal Strain is -18 The cavity size is normal. Wall thickness is normal. Systolic function is normal by the biplane method of disks. The estimated ejection fraction is 62%. There are no regional wall motion abnormalities. Left ventricular diastolic function parameters are normal. RIGHT VENTRICLE: The cavity size is normal. Systolic function is normal. Right ventricular systolic pressure is within the normal range. VENTRICULAR SEPTUM: There is no evidence of a ventricular septal defect. LEFT ATRIUM: The atrium is normal in size. RIGHT ATRIUM: The atrium is normal in size. ATRIAL SEPTUM: Color Doppler shows no shunt. MITRAL VALVE: Structurally normal valve. Doppler: There is mild, 1+ regurgitation. The peak diastolic gradient is 2 mm Hg. AORTIC VALVE: Structurally normal valve. Trileaflet. Doppler: There is no significant regurgitation. The peak systolic gradient is 7 mm Hg. The peak systolic velocity is 1.3 m/sec. TRICUSPID VALVE: Structurally normal valve. Doppler: There is trivial, less than 1+ regurgitation. PULMONIC VALVE: Structurally normal valve. Doppler: There is trivial, less than 1+ regurgitation. AORTA: The aorta is mildly dilated. Ascending aorta: The ascending aorta measures 4.0 cm (AP) and is mildly dilated. PULMONARY ARTERY: Main pulmonary artery: Normal. PERICARDIUM: There is no pericardial effusion. SYSTEMIC VEINS: Inferior vena cava: The vessel is normal. The IVC collapses by greater than 50% with inspiration. Measurements Value Reference Aortic root ID 3.4 cm <4.0 Aortic root ID, STJ, ED 3.0 cm 2.3 - 3.5 Aortic root ID/bsa, STJ, ED 1.6 cm/m^2 1.1 - 1.9 Value Reference Ascending aorta ID, A-P, S 4.0 cm Ascending aorta ID/bsa, A-P, S 2.2 cm/m^2 Left ventricle Value Reference GLS, 2D 17.71 % LV ID, ED 5.2 cm 4.2 - 5.8 LV ID, ES 3.6 cm 2.5 - 4.0 LV ID/bsa, ED 2.8 cm/m^2 2.2 - 3.0 LV ID/bsa, ES 2.0 cm/m^2 1.3 - 2.1 LV PW thickness, ED 0.9 cm 0.6 - 1.0 LV PW/LV ID ratio, ED 0.17 LV wall mass 189 g 96 - 200 LV wall mass/bsa 102 g/m^2 50 - 102 Stroke volume/bsa, 1-p A2C 38.2 ml/m^2 LV end-diastolic volume, 1-p A4C 90 ml 69 - 185 LV end-systolic volume, 1-p A4C 36 ml 22 - 78 LV end-diastolic volume, 2-p 104 ml 62 - 150 LV end-systolic volume, 2-p 40 ml 21 - 61 LV ejection fraction, 2-p 62 % 52 - 72 LV E/e', lateral 8.5 LV E/e', medial 16.9 LV E/e', average 11.3 Ventricular septum Value Reference IVS thickness, ED (H) 1.1 cm 0.6 - 1.0 LVOT Value Reference LVOT ID, A-P 1.9 cm LVOT mean velocity, S 0.7 m/sec LVOT peak gradient, S 4 mm Hg Stroke volume (SV), LVOT DP 57 ml Stroke index (SV/bsa), LVOT DP 31 ml/m^2 Aortic valve Value Reference Aortic valve peak velocity, S 1.3 m/sec Aortic peak gradient, S 7 mm Hg Left atrium Value Reference LA volume/bsa, ES, 2-p 28 ml/m^2 16 - 34 Mitral valve Value Reference Mitral E-wave peak velocity 0.7 m/sec Mitral A-wave peak velocity 0.5 m/sec Mitral deceleration time 192 ms Mitral peak gradient, D 2 mm Hg Mitral E/A ratio, peak 1.4 Right atrium Value Reference RA area, ES, A4C 17 cm^2 10 - 18 Systemic veins Value Reference Estimated RAP 8 mm Hg Right ventricle Value Reference RV ID, minor axis, ED, A4C base 2.7 cm 2.5 - 4.1 RV ID, minor axis, ED, A4C mid 2.3 cm 1.9 - 3.5 TAPSE, 2D (L) 1.2 cm 1.7 - 3.1 RV s', lateral (L) 5.2 cm/sec 6.0 - 13.4 Pulmonic valve Value Reference Pulmonic regurg gradient, ED 3 mm Hg Legend: (L) and (H) anastasia values outside specified reference range. Electronically signed by Stefan Pepe DO, FSVM, FACC 08/17/2019 14:23 Prior Signatures: Final Dictated: 08/17/2019 2:24 pm Dictating Physician: DO PEPE JOSEPH Signed Date and Time: 08/17/2019 2:24 pm Signed by: DO PEPE JOSEPH [facility] Vital Signs Date Time Vital Sign Value Performing Clinician Faci kevon 06-05-2023 12:50-0400 Body temperature 98 [degF] Dr. Jessica Dan Work Phone: [facility] 06-05-2023 12:50-0400 Diastolic blood pressure 78 mm[Hg] Dr. Jessica Dan Work Phone: [facility] 06-05-2023 12:50-0400 Heart rate 58 /min Dr. Jessica Dan Work Phone: [facility] 06-05-2023 12:50-0400 Respiratory rate 18 /min Dr. Jessica Dan Work Phone: [facility] 06-05-2023 12:50-0400 SaO2% (BldA) [Mass fraction] 98 % Dr. Jessica Dan Work Phone: [facility] 06-05-2023 12:50-0400 Systolic blood pressure 122 mm[Hg] Dr. Jessica Dan Work Phone: [facility] 06-05-2023 08:18-0400 Body height 167.[address] Jessica Dan Work Phone: [facility] 06-05-2023 08:18-0400 Body mass index (BMI) [Ratio] 24.9 kg/m2 Dr. Jessica Dan Work Phone: [facility] 06-05-2023 08:18-0400 Body weight [address] Jessica Dan Work Phone: [facility] 05-19-2023 08:45-0400 Body mass index (BMI) [Ratio] 25.2 kg/m2 Dr. Jessica Dan Work Phone: [facility] 05-19-2023 08:45-0400 Body weight 70.[address] Jessica Dan Work Phone: [facility] 05-19-2023 08:45-0400 Diastolic blood pressure 80 mm[Hg] Dr. Jessica Dan Work Phone: [facility] 05-19-2023 08:45-0400 Respiratory rate 16 /min Dr. Jessica Dan Work Phone: [facility] 05-19-2023 08:45-0400 Systolic blood pressure 146 mm[Hg] Dr. Jessica Dan Work Phone: [facility] 04-24-2023 13:04-0400 Body mass index (BMI) [Ratio] 25.2 kg/m2 Dr. Jessica Dan Work Phone: [facility] 04-24-2023 13:04-0400 Body temperature 98 [degF] Dr. Jessica Dan Work Phone: [facility] 04-24-2023 13:04-0400 Body weight 70.[address] Jessica Dan Work Phone: [facility] 04-24-2023 13:04-0400 Diastolic blood pressure 77 mm[Hg] Dr. Jessica Dan Work Phone: [facility] 04-24-2023 13:04-0400 Heart rate 58 /min Dr. Jessica Dan Work Phone: [facility] 04-24-2023 13:04-0400 Respiratory rate 16 /min Dr. Jessica Dan Work Phone: [facility] 04-24-2023 13:04-0400 SaO2% (BldA) [Mass fraction] 93 % Dr. Jessica Dan Work Phone: [facility] 04-24-2023 13:04-0400 Systolic blood pressure 115 mm[Hg] Dr. Jessica Dan Work Phone: [facility] 11-01-2022 13:00-0400 Body height 167.[address] Jessica Dan Work Phone: [facility] 11-01-2022 13:00-0400 Body mass index (BMI) [Ratio] 25.3 kg/m2 Dr. Jessica Dan Work Phone: [facility] 11-01-2022 13:00-0400 Body weight 71.[address] Jessica Dan Work Phone: [facility] 11-01-2022 13:00-0400 Diastolic blood pressure 59 mm[Hg] Dr. Jessica Dan Work Phone: [facility] 11-01-2022 13:00-0400 Heart rate 65 /min Dr. Jessica Dan Work Phone: [facility] 11-01-2022 13:00-0400 Respiratory rate 14 /min Dr. Jessica Dan Work Phone: [facility] 11-01-2022 13:00-0400 Systolic blood pressure 94 mm[Hg] Dr. Jessica Dan Work Phone: [facility] 10-16-2022 13:58-0500 Body temperature 97.5 [degF] Dr. Jessica Dan Work Phone: [facility] 10-16-2022 13:58-0500 Heart rate 60 /min Dr. Jessica Dan Work Phone: [facility] 10-16-2022 13:58-0500 Respiratory rate 16 /min Dr. Jessica Dan Work Phone: [facility] 10-16-2022 13:58-0500 SaO2% (BldA) [Mass fraction] 95 % Dr. Jessica Dan Work Phone: [facility] 10-11-2022 10:53-0500 Body temperature 97 [degF] Dr. Jessica Dan Work Phone: [facility] 10-11-2022 10:53-0500 Heart rate 58 /min Dr. Jessica Dan Work Phone: [facility] 10-11-2022 10:53-0500 Respiratory rate 16 /min Dr. Jessica Dan Work Phone: [facility] 10-11-2022 10:53-0500 SaO2% (BldA) [Mass fraction] 95 % Dr. Jessica Dan Work Phone: [facility] 10-04-2022 12:41-0500 Body temperature 98 [degF] [facility] 10-04-2022 12:41-0500 Diastolic blood pressure 81 mm[Hg] [facility] 10-04-2022 12:41-0500 Heart rate 52 /min [facility] 10-04-2022 12:41-0500 Respiratory rate 18 /min [facility] 10-04-2022 12:41-0500 SaO2% (BldA) [Mass fraction] 97 % [facility] 10-04-2022 12:41-0500 Systolic blood pressure 115 mm[Hg] [facility] 10-04-2022 11:00-0500 Inhaled oxygen flow rate 1 L/min [facility] 10-04-2022 09:04-0500 Body height 167.64 cm [facility] 10-04-2022 09:04-0500 Body mass index (BMI) [Ratio] 25.2 kg/m2 [facility] 10-04-2022 09:04-0500 Body weight 71 kg [facility] 09-02-2022 09:12-0500 Body mass index (BMI) [Ratio] 25.2 kg/m2 [facility] 09-02-2022 09:12-0500 Body temperature 97.6 [degF] MD Cavazos [facility] 09-02-2022 09:12-0500 Body weight 70.98 kg [facility] 09-02-2022 09:12-0500 Diastolic blood pressure 84 mm[Hg] [facility] 09-02-2022 09:12-0500 Heart rate 58 /min MD Cavazos [facility] 09-02-2022 09:12-0500 Respiratory rate 16 /min [facility] 09-02-2022 09:12-0500 SaO2% (BldA) [Mass fraction] 94 % [facility] 09-02-2022 09:12-0500 Systolic blood pressure 123 mm[Hg] [facility] 07-24-2022 13:04-0500 Body temperature 98.1 [degF] [facility] 07-24-2022 13:04-0500 Diastolic blood pressure 88 mm[Hg] [facility] 07-24-2022 13:04-0500 Heart rate 74 /min [facility] 07-24-2022 13:04-0500 Respiratory rate 14 /min [facility] 07-24-2022 13:04-0500 SaO2% (BldA) [Mass fraction] 95 % [facility] 07-24-2022 13:04-0500 Systolic blood pressure 126 mm[Hg] [facility] 06-20-2022 09:02-0500 Body temperature 98.3 [degF] [facility] 06-20-2022 09:02-0500 Body weight 72.12 kg [facility] 06-20-2022 09:02-0500 Diastolic blood pressure 77 mm[Hg] [facility] 06-20-2022 09:02-0500 [facility] 66 [facility] 06-20-2022 09:02-0500 Respiratory rate 16 /min MD Cavazos [facility] 06-20-2022 09:02-0500 SaO2% (BldA) [Mass fraction] 95 % [facility] 06-20-2022 09:02-0500 Systolic blood pressure 122 mm[Hg] MD Cavazos [facility] 08-23-2021 13:55-0500 Body height 167.[address] Uziel Merritt Work Phone: [facility] Work Phone: 08-23-2021 13:55-0500 Body mass index (BMI) [Ratio] 25.4 kg/m2 Dr. Uziel Merritt Work Phone: [facility] Work Phone: 08-23-2021 13:55-0500 Body weight 71.[address] Uziel Merritt Work Phone: [facility] Work Phone: 08-23-2021 13:55-0500 Diastolic blood pressure 84 mm[Hg] Dr. Uziel Merritt Work Phone: [facility] Work Phone: 08-23-2021 13:55-0500 Heart rate 60 /min Dr. Uziel Merritt Work Phone: [facility] Work Phone: 08-23-2021 13:55-0500 Respiratory rate 16 /min Dr. Uziel eMrritt Work Phone: [facility] Work Phone: 08-23-2021 13:55-0500 Systolic blood pressure 144 mm[Hg] Dr. Uziel Merritt Work Phone: [facility] Work Phone: Encounters Encounter Date Encounter Type Care Provider Facility Start: 11-25-2024 End: 11-25-2024 ambulatory Jessica Dan [place] Start: 11-18-2024 End: 11-18-[address] Jsesica Dan MD Work Phone: [facility] Work Phone: Start: 11-18-2024 End: 11-18-[address] Jessica Dan MD -Laboratory, [place] Work Phone: Start: 11-18-2024 End: 11-18-2024 ambulatory Jessica Dan Facility:[facility] Start: 05-27-2024 End: 05-27-2024 ambulatory Jessica Dan Facility:[facility] Start: 05-24-2024 End: 05-24-2024 ambulatory [facility] Facility:[facility] Start: 03-03-2024 End: 03-03-2024 ambulatory [facility] Facility:[facility] Start: 02-20-2024 Encounter for preprocedural laboratory examination [place] Cristian [facility] Start: 02-06-2024 ambulatory Ankit Cristian Facility:[facility] Start: 02-06-2024 End: 02-06-2024 ambulatory [place] [facility] Facility:[facility] Start: 02-05-2024 End: 02-05-2024 ambulatory [place] [facility] Facility:[facility] Start: 01-23-2024 End: 01-23-2024 ambulatory Jessica Sy Facility:[facility] Start: 01-01-2024 [facility] Start: 11-17-2023 End: 11-17-2023 ambulatory [facility] Work Phone: Start: 11-17-2023 End: 11-17-2023 Patient encounter procedure [facility] Work Phone: Start: 06-17-2023 End: 06-17-[address] Jessica Dan Work Phone: [facility] Work Phone: Start: 06-17-2023 End: 06-17-[address] Jessica Dan Work Phone: [facility] Work Phone: Start: 06-05-2023 Non-patient / Non-visit Dr. Lola Dan Work Phone: [facility] Start: 06-05-2023 End: 06-05-2023 Admission to same day surgery center Dr. Jessica Dan Work Phone: [facility] Start: 06-05-2023 End: 06-05-[address] Jessica Dan Work Phone: [facility] Work Phone: Start: 05-29-2023 End: 05-29-2023 Non-patient / Non-visit Dr. Jessica Dan Work Phone: [facility] Work Phone: Start: 05-19-2023 End: 05-19-[address] Jessica Dan Work Phone: [facility] Work Phone: Start: 04-24-2023 End: 04-24-[address] Jessica Dan Work Phone: [facility] Work Phone: Start: 12-17-2022 End: 12-17-[address] Jessica Dan Work Phone: [facility] Work Phone: Start: 12-17-2022 End: 12-17-[address] Jessica Dan Work Phone: [facility] Start: 11-01-2022 End: 11-01-[address] Jessica Dan Work Phone: [facility] Start: 10-16-2022 End: 10-16-[address] Jessica Dan Work Phone: [facility] Start: 10-11-2022 End: 10-11-[address] Jessica Dan Work Phone: [facility] Start: 10-04-2022 Non-patient / Non-visit MD Uziel cee [facility] Start: 10-04-2022 End: 10-04-2022 Admission to same day surgery center MD Uziel Infante [facility] Start: 10-04-2022 End: 10-04-2022 ambulatory MD Uziel Infante [facility] Work Phone: Start: 09-09-2022 End: 09-09-2022 ambulatory DAYANA MOREIRA Facility:[facility] Start: 09-06-2022 End: 09-06-2022 Patient encounter procedure MD Uziel Infante [facility] Start: 09-02-2022 End: 09-02-2022 Patient encounter procedure MD Uziel Infante [facility] Start: 08-20-2022 End: 08-20-2022 ambulatory UZIEL RASMUSSEN Facility:[facility] Start: 07-24-2022 End: 07-24-2022 ambulatory [facility] Work Phone: Start: 07-24-2022 End: 07-24-2022 Patient encounter procedure MD Uziel Infante [facility] Start: 06-27-2022 Telephone encounter Tiburcio Cline si, MD Work Phone: Urology Comment on above: Appointment Start: 06-20-2022 End: 06-20-2022 Patient encounter procedure MD Uziel Infante [facility] Start: 05-29-2022 End: 05-29-2022 ambulatory [facility] Work Phone: Start: 05-29-2022 End: 05-29-2022 Patient encounter procedure [facility] Start: 10-17-2021 End: 10-17-[address] Uziel Merritt Work Phone: [facility] Start: 08-31-2021 End: 08-31-[address] Uziel Merritt Work Phone: [facility] Start: 08-23-2021 End: 08-23-[address] Uziel Merritt Work Phone: [facility] Start: 08-22-2021 End: 08-22-2021 ambulatory UZIEL RASMUSSEN [facility] Start: 08-17-2019 End: 08-17-2019 Subsequent hospital visit by physician Freya Story APRN - CUSTODIAN MANAGER Work Phone: [facility] Comment on above: Systolic murmur Procedures Date Procedure Procedure Detail Performing Clinician Start: 06-05-2023 Lap Robotic Inguinal Hernia (Left) Dr. Jessica Dan Work Phone: Start: 10-04-2022 Excision of ganglion cyst MD Uziel Infante Start: 09-06-2022 Plain x-ray of wrist MD Uziel Infante Start: 08-31-2021 CT of thorax with contrast Dr. Uziel Merritt Work Phone: Start: 08-17-2019 Echo tthrc r-t 2d w/wom-mode compl spec&colr d Freya Story APRN - CUSTODIAN MANAGER Work Phone: Start: 05-26-2013 History of coronary artery bypass grafting H/O coronary artery bypass surgery Freya Story APRN - [place] Work Phone: Comment on above: CABG x 4 RENEE-LAD, S VG-Distal LAD, Sequential SVG-RPDA and RCA 05/26/2013 Start: 06-21-2011 Colonoscopy Tiburcio Cline si, MD Work Phone: Plan of Treatment Date Care Activity Detail Author Start: 08-22-2026 PROSTATE CANCER SCREENING DISCUSSION PROSTATE CANCER SCREENING DISCUSSION [facility] Start: 06-05-2023 Anesthesia intraperitoneal lower abd w/laps nos ANESTH SURG LOWER ABDOMEN [facility] Start: 06-05-2023 Laparoscopy surg rpr initial inguinal hernia LAP ING HERNIA REPAIR INIT [facility] Start: 06-05-2023 Patient discharge [facility] Start: 10-04-2022 Anes nerve muscle tdn fascia&bursa forearm wrist ANESTH LOWER ARM SURGERY [facility] Start: 10-04-2022 Exc tumor soft tissue forearm &/wrist subq <3cm EXC FOREARM LES SC < 3 CM [facility] Start: 10-04-2022 Patient discharge [facility] Start: 04-11-2022 Influenza vaccination INFLUENZA (#1) [facility] Start: 09-18-2021 COVID-19 VACCINE (4 - Booster for Pfizer series) COVID-19 VACCINE (4 - Booster for Pfizer series) [facility] Start: 08-11-2021 DEPRESSION ASSESSMENT DEPRESSION ASSESSMENT [facility] Start: 06-21-2021 Colonoscopy COLONOSCOPY [facility] Start: 06-21-2021 COLORECTAL CANCER SCREENING COLORECTAL CANCER SCREENING [facility] Start: 07-03-2019 DIABETES SCREEN DIABETES SCREEN [facility] Start: 04-11-2019 Influenza vaccination Flu vaccine (#1) [facility] Work Phone: Start: 2008 Colon cancer screen colonoscopy Colon cancer screen colonoscopy [facility] Work Phone: Start: 2008 Shingles Vaccine (1 of 2) Shingles Vaccine (1 of 2) [facility] Work Phone: Start: 2008 SHINGRIX VACCINE (1 of 2) SHINGRIX VACCINE (1 of 2) [facility] Start: 2003 COLOGUARD (FIT-DNA) COLOGUARD (FIT-DNA) [facility] Start: [address] COLONOGRAPHY [facility] Start: 2003 FECAL OCCULT BLOOD FECAL OCCULT BLOOD [facility] Start: 2003 SIGMOIDOSCOPY SIGMOIDOSCOPY [facility] Start: 1993 LIPID SCREEN LIPID SCREEN [facility] Start: 1977 Urine microalbumin profile DTAP,TDAP,TD (1 - Tdap) [facility] Start: 1976 ANNUAL PCP TEAM CHRONIC DISEASE VISIT ANNUAL PCP TEAM CHRONIC DISEASE VISIT [facility] Start: 1976 BP CONTROLLED (<130/80) BP CONTROLLED (<130/80) [facility] Start: 1976 Diabetic microalbuminuria test Diabetic microalbuminuria test [facility] Work Phone: Start: 1976 Hepatitis B surface antibody level LDL CHOLESTEROL [facility] Start: 1976 HEPATITIS C SCREENING HEPATITIS C SCREENING [facility] Start: 1976 HIV SCREENING HIV SCREENING [facility] Start: 1973 HIV screen HIV screen [facility] Work Phone: Start: 1969 DTaP/Tdap/Td vaccine (1 - Tdap) DTaP/Tdap/Td vaccine (1 - Tdap) [facility] Work Phone: Start: 1968 3 comp foot exam completed Diabetic foot exam [facility] Work Phone: Start: 1968 A1C test (Diabetic or Prediabetic) A1C test (Diabetic or Prediabetic) [facility] Work Phone: Start: 1968 Diabetic retinal exam Diabetic retinal exam [facility] Work Phone: Start: 1968 Lipid screen Lipid screen [facility] Work Phone: Start: 1964 Pneumococcal 0-64 years Vaccine (1 of 1 - PPSV23) Pneumococcal 0-64 years Vaccine (1 of 1 - PPSV23) [facility] Work Phone: Start: 1958 Creatinine monitoring Creatinine monitoring [facility] Work Phone: Start: 1958 Hepatitis C screen Hepatitis C screen [facility] Work Phone: Start: 1958 Potassium monitoring Potassium monitoring [facility] Work Phone: Patient referral [facility] Work Phone: [facility] Payers Date Payer Category Payer Unknown [id number] 2022 Medicare [id number] 2022 Self-pay [id number] 2015 Unknown BCBS BC[place] - [place] P PO xxxxxxxxxxxx 2015-Present [address] [place] [address] xxxxxxxxxxxx [id number] 2015 Unknown AKIL SHIRLEY PPO [id number] 2015-Present [phone] [address] [place] [address] PPO [id number] 2005 Unknown [id number] Unknown [id number] Unknown [id number] Unknown [id number] Unknown [id number] Unknown [id number] Unknown [id number] Unknown [id number] Unknown [id number] Unknown [id number] Unknown [id number] Social History Date Type Detail Facility Start: 08-23-2021 End: 2023 Tobacco smoking status MNIS Unknown if ever smoked [facility] Start: 1960 Sex Assigned At Male [facility] Start: 08-27-2017 End: 07-02-2019 Tobacco smoking status NHIS Never smoker [facility] Start: 07-02-2019 Alcohol intake Current non-dr registered medical assistant of alcohol (finding) [facility] Work Phone: Start: 1960 Sex Assigned At Not on file S [facility] Work Phone: Start: 08-27-2017 Tobacco use and exposure Smokeless tobacco non-user [facility] Start: 08-28-2020 Alcohol intake Current drinke r of alcohol (finding) [facility] Start: 11-26-2023 Tobacco smoking stat us NHIS Ex-smoker (finding) [facility] Start: 11-23-2024 Sex Male (finding) [facility] Medical Equipment Procedure Code Equipment Code Equipment Origin al Text Equipment Identifier Dates MESH,PRO WELLNESS DIRECTOR [id number] FDA Start: 06-05-2023 MESH,PRO WELLNESS DIRECTOR [id number] FDA Start: 06-05-2023 MESH,PRO WELLNESS DIRECTOR [id number] FDA Start: 06-05-2023 Goals Date Patient Goal Desired Activity /State Mental Status Date Assessment Result Facility 06-05-2023 Cognitive function Level Of Cons ciousness Awake;Drowsy [facility] Work Phone: 10-04-2022 Cognitive function Touch/Shaking [facility] Work Phone: 10-04-2022 Cognitive function Patient Orien tation Person;Place;Time [facility] Work Phone: Clinical Notes 06-27-2022 to 06-05-2023 Note Date & Type Note Facility 06-05-2023 Discharge summary Note Date/Time June 05, 2023 10:59am [facility] Medical Records Department [address] [place] [address] Instructions for Home/Discharge Instructions 06/05/23 1058 MR#: [id number] Acct: [id number] Name: MATTHEW TOMLIN Rep #:[id number] : [id number] 62 From: Aly magallon MD PCP: Dr. Jessica Dan MD Status:REG [facility] Discharge Instructions Diet Discharge Diet: Light diet - advance as tolerated Activity Discharge Activity: May Not Drive (for 2-3 days or while taking narcotic pain meds.) and May Shower (with the bandage in place 1-2 days after surgery.) Lifting Restrictions: 20 pounds for 4 weeks Additional Activity Instructions:: Climbing stairs is fine, walking is encouraged. Sitting in bed may be uncomfortable. Sitting up using your lateralmuscles (sitting up sideways) is usually more comfortable. Do not drive, work heavy equipment or sign legal documents for 24 hours. If your hernia repair was an inguinal repair, you may have scrotal swelling, an ice pack and/or athletic support can provide more comfort. Pain medications may cause nausea, you should typically eat light foods as you take your pain medications. Pain medications may also cause constipation. If you have difficulty with this, discuss with your doctor. Dressing / Incision Call your doctor if your incision/area has: Continuous Slow Oozing, Sudden Increased Bleeding, Increased Pain/ Swelling, Increased Redness and Foul Smelling Discharge Call your doctor if you observe: Fever of 101 or Higher Suture Line Care: Avoid Pulling/Pushing and Avoid Pinching/Bending Remove Dressing in: 2 days (Remove clear bandages in 2 days, remove Steri-Stripsin 7 to 10 days.) Follow Up Care Please Follow Up With: Aly Fraire MD When: Please call to schedule 2 week follow up appointment. [phone] Test Results: Test results from this visit will be discussed in further detail at your follow-up appointment, if applicable. Discharge Plan Admission Attending Provider: Aly Fraire Primary Care Provider: Jessica Dan Discharge Orders/Prescriptions Prescriptions: New oxycodone 5 mg tablet 5 - 10 mg PO Q6H PRN (Reason: pain) 3 Days Qty: 5 0RF No Action aspirin [Adult Aspirin Regimen] 81 mg tablet,delayed release (DR/EC) 81 mg PO DAILY Patient Comments: STOP 3 DAYS PRIOR Centrum Silver Men 300-600-300 mcg tablet 1 tab PO DAILY omeprazole 10 mg capsule,delayed release(DR/EC) 10 mg PO .COMPLEX Rx Instructions: 10 mg orally 2x week; Fiber (dextrin) 3 gram/3.5 gram Powder 3 g PO BID amlodipine 10 mg tablet 10 mg PO DAILY Qty: 90 3RF metoprolol tartrate 25 mg tablet 25 mg PO BID Qty: 180 3RF atorvastatin 80 mg tablet 80 mg PO QHS Qty: 90 3RF benazepril 40 mg tablet 40 mg PO QHS Qty: 90 3RF metformin 500 mg tablet 500 mg PO BID Qty: 180 3RF Referrals / Follow Up: Jessica Dan MD [Primary Care Provider] - Disposition Disposition (needs filled in before D/C Order can be placed): Home, Self Care 06/05/23 1101<Electronically signed by Aly Fraire MD>Aly Fraire MD CC: Dr. Jessica Dan MD ~ Signed [facility] Work Phone: 1(926) 969-942410-26-2023 History and physical note Author Aly Fraire [facility] June 05, 2023 9:12am Note Date/Time June 05, 2023 9 :12am [facility] Medical Records Department [address] [place] [address] History & Physical Exam 06/05/23 0911 MR#: [id number] Acct: [id number] Name: MATTHEW TOMLIN Rep #:[id number] : 1960 62 From: Aly magallon MD PCP: Dr. Jessica Dan MD Status:[facility] Location: [place] [address] History and Physical Date of Admission: 06/05/23 Intake Vital Signs 04/24/2313:04 05/19/2308:45 Height 5 ft 6 in 5 ft 6 in Weight: 156 lb 4 oz 156 lb BMI 25.2 25.2 BP 115/77 146/80 H Blood Pressure Location Lt brachial Rt brachial Position Sitting Sitting Respiration 16 16 Pulse 58 L Pulse Source Monitor Temp 98.0 F Temp Source Temporal Pulse Oximetry (%) 93 Oxygen Delivery Method room air Intake Visit Reasons: INGUINAL HERNIA Chief Complaint: left groin, noticed 2-3 weeks Inside Sales Executive Required: No Is patient in pain?: No Allergies Environmental Allergies: Uncoded Adverse Reaction (Intermediate, Verified 05/19/23 08:46) Other Medications aspirin 81 mg tablet,delayed release (Adult Aspirin Regimen) 81 mg PO DAILY 08/23/19 [History Confirmed 05/19/23] [id number] 300 mcg-K 60 mcg-lycop 600 mcg-lutein 300 mcg tablet (Centrum Silver Men) 1 tab PO DAILY 08/23/21 [History Confirmed 05/19/23] amlodipine 10 mg tablet 10 mg PO DAILY #90 tabs 07/29/22 [Rx Confirmed 05/19/23] dextrin 3 gram/3.5 gram oral powder (Fiber (dextrin)) 3 g PO TID 09/18/22 [History Confirmed 05/19/23] atorvastatin 80 mg tablet 80 mg PO QHS #90 tabs 03/18/23 [Rx Confirmed 05/19/23] metoprolol tartrate 25 mg tablet 25 mg PO BID #180 tabs 03/18/23 [Rx Confirmed 05/19/23] benazepril 40 mg tablet 40 mg PO QHS #90 tabs 04/18/23 [Rx Confirmed 05/19/23] omeprazole 10 mg capsule,delayed release 10 mg PO .COMPLEX 04/24/23 [History Confirmed 05/19/23] metformin 500 mg tablet 500 mg PO BID #180 tabs 05/15/23 [Rx Confirmed 05/19/23] PFSH Medical History Alcohol use Atherosclerosis of coronary artery of [place] heart without angina pectoris Back problem Cancer Cardiology follow-up encounter Diabetes Dietary restriction Essential (primary) hypertension Former smoker Ganglion cyst of dorsum of right wrist Gastric reflux GERD (gastroesophageal reflux disease) Headache, migraine Heart disease Hemoglobin A1c between 7.0% and 9.0% History of echocardiogram History of stress test Hyperlipidemia Hypertension Mass of soft tissue of wrist Old anterior wall myocardial infarction (05/23/13) Prostate cancer Thoracic aortic aneurysm (TAA) Type 2 diabetes mellitus Vascular leiomyoma Wears glasses Surgical History Cyst H/O coronary artery bypass surgery (05/26/13) History of coronary angioplasty (05/23/13) History of excision of lesion History of prostatectomy (2015) Hx of surgical procedure Family History Father CAD (coronary artery disease) Social History Smoking Status: Former smoker alcohol intake: current alcohol intake frequency: a few times a month Alcohol type: beer details: Beer 2 a week substance use type: does not use caffeine: Yes Type: coffee Number of servings: 1 what type of physical activity do you participate in: walking frequency: 5-6 times per week HPI HPI HPI: The patient is here for left groin swelling. He says has been going on for few months. He says that he is able to massage it back in place. He also has an umbilical hernia that has been there for many years. He is not describing any pain on the opposite side. Patient denies any fevers or chills or nausea or vomiting. There is no acute pain at the hernia currently. ROS General General: No weight change, appetite, fatigue, colon cancer, breast cancer or weakness HEENT HEENT: No difficulty swallowing, eye injury, eye surgery, swollen glands or hoarseness Endo Endocrine: Yes diabetes mellitus; No thyroid disease, thyroid cancer, Hair loss, heat intolerance or cold intolerance Skin Skin: No rash or changing moles Breast Breast: No left breast lump, right breast lump, nipple discharge, breast pain, abnormal mammogram, abnormal US or breast enlargement Musc Musculoskeletal: No back problems, arthritis, rheumatoid arthritis, gout or joint pain Cardio Cardiovascular: Yes heart disease, high blood pressure and heart attack; No murmur, pacemaker, atrial fibrillation, heart stent, palpitations, shortness of breat with exertion or chest pain Psych Psychiatric: No depression, anxiety or hearing voices Resp Respiratory: No shortness of breath, No sleep apnea, No cough, No COPD, No asthma, No emphysema and No wheezing Gastro Gastrointestinal: No abdominal pain, No nausea or vomiting, No diarrhea, No constipation, No blood in stool, Yes acid reflux, No hemorrhoids, No ulcers, No gallbladder problem and No black,tarry stools Eric Hematologic: Yes blood thinners, No blood disorders, No bleeding, No anemia and No blood clots Neuro Neurologic: No system reviewed and no additional complaints, except as documented, No as per HPI, No abnormal gait, No abnormal hearing, No abnormal movements, No abnormal speech, No behavioral changes, No burning sensations, No confusion, No convulsions, No disequilibrium, No dizziness, No localized weakness, No frequent falls, No headache(s), No lack of coordination, No loss ofvision, No memory loss, No numbness, No other visual disturbances, No radicular pain, No restless legs, No sensory deficit, No syncope, No tingling, No tremor(s), No weakness and No other Exam Const General: cooperative Orientation: alert and oriented x3 HENMT Head: normal to inspection Neck Neck: normal visual inspection and full ROM Chest Chest palpation & inspection: normal inspection of the chest Resp Effort & Inspection: normal respiratory effort Auscultation: clear to auscultation bilaterally Cardio Rate: regular rate Rhythm: regular rhythm GI Inspection: non-distended Palpation: soft, hernia indirect inguinal on the left and umbilical and nontender Skin General: no rashes or lesions noted Neuro General: patient alert and patient oriented x3 Extrem General: full ROM Psych Appearance: grossly normal Mental Status: mental status grossly normal Assessment and Plan Assessment and Plan (1) Umbilical hernia: Status: Acute Qualifiers: Obstruction and gangrene presence: without obstruction or gangrene Qualified Code(s): K42.9 - Umbilical hernia without obstruction or gangrene (2) Reducible left inguinal hernia: Status: Acute Plan The patient has an umbilical hernia and a left inguinal hernia. I discussed robotic assisted laparoscopic inguinal hernia repair with mesh. I also discussed repairing his umbilical hernia. I discussed mesh placement and I discussed the risks of the procedure such as bleeding, infection, injury to other organ such as the bowel, bladder, ureter or blood supply the testicle. Patient understands the risks and is willing to proceed. If there is a hernia on the abscess that he would like that repaired. Patient will hold his aspirin for 5 days prior to the procedure. Aly Fraire MD Pager: [facility] [address] [place] [address], [address] [place] [address] Office: I have examined the patient and the H&P has been reviewed. There are no clinicalchanges since date of exam. 06/05/23911 <Electronically signed by Aly Fraire MD> Cosigner Signature (if applicable): CC: Dr. Aly Fraire MD; Dr. Jessica Dan MD~ Signed [facility] Work Phone: 1(292) 321-769910-26-[address] [facility] 10-04-2022 History and physical note Author Dr. Miller [facility] October 04, 2022 9:07am Note Date/Time October 04, 2022 9:03am [facility] [facility] Department [address] [place] [id number] History & Physical Exam 10/04/22 0858 MR#: [id number] Acct: [id number] Name: MATTHEW TOMLIN Rep #:[id number] : 1960 62 From: David Jaeger PCP: Dr. Jessica Dan MD Status:[facility] Location: [place] [address] History and Physical Date of Admission: 10/04/22 HISTORY OF PRESENT ILLNESS 62 year old man presents with a soft tissue mass dorsum right wrist by ring finger that he has had for a few years and has increased in size over the last several months.? There is some discomfort when it is bumped.? He denies trauma.?He denies numbness in his fingers.? He denies any range of motion issues right hand and wrist.? He has no problems with flatwork folder strength.? He is right hand dominant.? He had an x- ray on 09/06/22. It showed "osteopenia with mild osteoarthritic changes. No acute abnormality, chondrocalcinosis or erosive changes." He presents at this time for further evaluation and treatment. PAST MEDICAL HISTORY Atherosclerosis of coronary artery of [place] heart without angina pectoris Back problem Essential (primary) hypertension Ganglion cyst of dorsum of right wrist GERD (gastroesophageal reflux disease) Headache, migraine Heart disease Hemoglobin A1c between 7.0% and 9.0% Hyperlipidemia Old anterior wall myocardial infarction (05/23/13) Prostate cancer Thoracic aortic aneurysm (TAA) Type 2 diabetes mellitus PAST SURGICAL HISTORY H/O coronary artery bypass surgery (05/26/13) History of coronary angioplasty (05/23/13) History of prostatectomy (2015) ALLERGIES No Known Allergies MEDICATIONS aspirin jzfszvdo-jme-gzibt zapm-ipohjgdo-falvfr (Centrum Silver Men) calcium carbonate chewable tablet (Tums) atorvastatin metoprolol tartrate benazepril metformin omeprazole amlodipine FAMILY HISTORY Father - CAD (coronary artery disease) SOCIAL HISTORY Smoking Status:? Former smoker alcohol intake:? current alcohol intake frequency: a few times a month Alcohol type: beer substance use type:? does not use REVIEW OF SYSTEMS General - Denies fever, fatigue, and weight loss. Eyes - Denies cataracts and glaucoma. ENT - Denies nasal congestion and sore throat. Endocrine - Denies excessive thirst and urination. ? Has diabetes mellitus.? HgbA1c is 7.3 on 05/29/22. Skin - Denies suspicious lesions and skin cancer.? Has soft tissue mass dorsum right wrist by ring finger.? Musculoskeletal - Denies joint pain, joint stiffness, weakness of muscles and joints, and arthritis.? Has back pain.? Neuro - Denies headaches. Cardiovascular - Denies chest pain, fatigue, and shortness of breath with exertion. Psych - Denies anxiety and depression. Respiratory - Denies chronic cough and shortness of breath.? Patient is a formersmoker. Gastrointestinal - Denies nausea, vomiting, diarrhea, and constipation. Hematologic - Denies abnormal bruising and bleeding. Genitourinary - Denies hematuria and urinary frequency. PHYSICAL EXAMINATION General - Alert and Oriented. HEENT - PERRL. EOMI.? Throat is clear. Neck - Supple and nontender.? No cervical adenopathy. Lungs - Clear to auscultation. Heart - Regular rate and rhythm. Abdomen - Soft and nondistended. Extremities - FROM. No axillary adenopathy.? Radial pulses are palpable. Has good flatwork folder strength.? Patient is right hand dominant.? On the dorsum right wrist by ring finger is a soft tissue mass clinically a ganglion cyst.? It is mobile.?Measures 1.1 cm.? No ulceration.? Slight discomfort when the soft tissue mass isbumped.? Flexion and extension are intact.? Thumb opposition intact. Neuro - CN II-XII grossly intact. Psych - Normal mood and affect. ASSESSMENT 1.? 1.1 cm ganglion cyst dorsum right wrist by ring finger. 2.? Diabetes mellitus. 3.? HgbA1c 7.3 on 05/29/22. PLAN Patient has a soft tissue mass dorsum right wrist by ring finger that clinicallyis a ganglion cyst.? It has increased in size over the last several months, and there is some discomfort when it is bumped.? Recommend excision of this ganglion cyst that can be done on an outpatient basisunder Kvng Block anesthesia with a tourniquet.? Commonly these ganglion cysts originate from the scapholunate joint or the radiocarpal joint.? Will trace the stalk down to the joint and include a cuff of capsule to minimize recurrence.? Tissue that is excised will be sent to Pathology for analysis to rule out carcinoma.? Postoperatively he will wear a wrist splint for a couple of weeks.? His fingers will be free for range of motion exercises to minimize stiffness.? If any stiffness is persistent, then will need OT for range of motion exercises,strengthening, and edema management. He had an x-ray on 09/06/22. It showed "osteopenia with mild osteoarthritic changes. No acute abnormality, chondrocalcinosis or erosive changes." Patient has diabetes mellitus and his latest HgbA1c is 7.3 on 05/29/22.? For elective surgeries, it needs to be less than 8.? Patient was informed of the risks and complications of the procedure including alternatives to surgery.? These were discussed with the patient personally.? Patient voices understanding and wishes to proceed. Some of the risks and complications were included in a form from the [employer]. Some of the risks and complications that were discussed included but were not inclusive of failure to diagnose including symptom relief, pain, infection, numbness, stiffness, loss of digit, RSD (CRPS), need for further surgery, contracture, and wound healing problems. Assessment & Plan Assessment/Plan (1) Ganglion cyst of dorsum of right wrist: (2) Type 2 diabetes mellitus: (3) Hemoglobin A1c between 7.0% and 9.0%: 10/04/22 0907 <Electronically signed by David Miller MD> Cosigner Signature (if applicable): CC: Dr. David Miller MD; Dr. Jessica Dan MD~ Signed [facility] Work Phone: [phone]) 140-437601-30-2023 NoteHNO ID: [id number] Author: Dayana Moreira APRN.CUSTODIAN MANAGER Service: ? Author Type: Nurse Practitioner Type: Progress Notes Filed: 09/09/2022 5:08 PM Note Text: VIRTUAL VISIT PROGRESS NOTE This is a virtual visit using [employer] video visit. It required patient-provider interaction for the medical decision making as documented below. Matthew Tomlin is a 62 year old male seen s/p RALP, BPLND 06/[address] Clancy (Grade Group 2, pT3aNx, negative margins). His most recent PSA was undetectable on 08/20/2022. Patient reports feeling well overall. He endorses ongoing great urinary control and erectile function. PATHOLOGY: Prostate, radical prostatectomy - Adenocarcinoma of the prostate, Danielle score 3+4=7 (Grade Group 2). - Extraprostatic extension is identified. - Tumor invades the bladder neck microscopically. - Seminal vesicles and margins are negative for carcinoma. - See synoptic report. PSA (ng/mL) Date Value 08/20/2022 <0.02 08/22/2021 <0.02 08/02/2020 <0.03 02/21/2020 <0.03 08/23/2019 <0.03 HISTORY REVIEWED (electronic chart updated): PAST MEDICAL HISTORY Diagnosis Date CAD (coronary artery disease) Diaphragmatic hernia without mention of obstruction or gangrene Diverticulosis of colon (without mention of hemorrhage) Esophageal reflux Esophagitis, unspecified Hyperlipemia Migraines Unspecified essential hypertension PAST SURGICAL HISTORY Procedure Laterality Date COLONOSCOPY FLX DX W/COLLJ SPEC WHEN PFRMD 06/21/11 EGD TRANSORAL BIOPSY SINGLE/MULTIPLE 06/21/11 EXTRACTION, ERUPTED TOOTH OR EXPOSED ROOT (ELEVATION AND/OR FORCEPS REMOVAL) PAST SURGICAL HISTORY OF right thumb PAST SURGICAL HISTORY OF 2012 open heart VASECTOMY UNI/BI SPX W/POSTOP SEMEN EXAMS FAMILY HISTORY Problem Relation Age of Onset Diabetes Brother Social History Tobacco Use Smoking status: Never Smokeless tobacco: Never Substance Use Topics Alcohol use: Yes Comment: occ Drug use: No Current Outpatient Medications Medication Sig aspirin-calcium carbonate 81 mg-300 mg calcium(777 mg) tab Take 81 mg by mouth. omeprazole (PRILOSEC) 20 mg capsule Take 20 mg by mouth. amLODIPine (NORVASC) 10 mg tablet Take 10 mg by mouth. metFORMIN (GLUCOPHAGE) 500 mg tablet Benazepril HCl 40 mg tablet Take 40 mg by mouth. atorvastatin (LIPITOR) 80 mg tablet metoprolol tartrate, short acting, (LOPRESSOR) 25 mg tablet Take 25 mg by mouth. ciprofloxacin HCl (CIPRO) 500 mg tablet Take 1 tablet by mouth twice daily. (Patient not taking: Reported on 08/30/2019 ) docusate sodium (COLACE) 100 mg capsule Take 1 capsule by mouth twice daily. oxyCODONE-acetaminophen (PERCOCET) 5-325 mg tablet Take 1-2 tablets by mouth every 4 hours as needed. omeprazole (PRILOSEC) 20 mg capsule Take 20 mg by mouth once daily. amLODIPine (NORVASC) 10 mg tablet Take 10 mg by mouth once daily. Benazepril HCl 40 mg tablet Take 40 mg by mouth once daily. metoprolol tartrate, short acting, (LOPRESSOR) 25 mg tablet Take 25 mg by mouth twice daily. aspirin, enteric coated (ASPIRIN, ENTERIC COATED) 81 mg EC tablet Take 81 mg by mouth once daily. atorvastatin (LIPITOR) 20 mg tablet Take 20 mg by mouth once daily. No current facility-administered medications for this visit. ALLERGIES No Known Allergies REVIEW OF SYSTEMS: GENERAL: feeling well without fatigue, no recent change in weight RESPIRATORY: no cough, no wheezing or shortness of breath CARDIOVASCULAR: no chest pain, no palpitations : urination is normal PHYSICAL EXAMINATION: VIDEO EXAM: (if completed, performed via video enabled technology) GENERAL: alert and appropriate, in no distress, well-hydrated, well nourished, and happy, smiling, interactive ASSESSMENT: (C61) Prostate cancer (HCC) (primary encounter diagnosis) Matthew Tomlin is a 62 year old male seen s/p RALP, BPLND 06/[address] Clancy (Grade Group 2, pT3aNx, negative margins). His most recent PSA was undetectable on 08/20/2022. Patient remains to have great urinary control and erectile function. We will continue to monitor his PSA annually. Discussed that this can be completed with us or his PCP as long as it remains undetectable. PLAN: PSA in 1 year RTC in 1 year with PSA prior There are no Patient Instructions on file for this visit. I spent a total of 20 minutes on the date of the service which included preparing to see the patient, [id number] patient care, completing clinical documentation, performing a medically appropriate examination, and counseling and educating the patient/family/caregiver Dayana Moreira APRN.[facility]11-17-2022 Miscellaneous Notes* Telephone Encounter - Chery Polanco - 06/27/2022 1:55 PM EST Spoke to patient and confirmed change of appointment [facility] Author Dr. Miller [facility] October 04, 2022 12:12pm Note Date/Time October 04, 2022 11:59am [facility] Medical Records Department [address] [place] [address] Instructions for Home/Discharge Instructions 10/04/22 1153 MR#: [id number] Acct: [id number] Name: MATTHEW TOMLIN Rep #:[id number] : 1960 62 From: David Jaeger PCP: Dr. Jessica Dan MD Status:REG [facility] Discharge Instructions Diet Discharge Diet: No restrictions Activity Discharge Activity: May Not Drive (for 24 hours and longer if taking pain medication), May Shower (wear plastic bag over right hand when showering.) and -(elevate right hand. 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 Keep extremity elevated above heart level: Right Arm Additional Activity Instructions:: may golf after being seen in office in one week. Dressing / Incision Call your doctor if your incision/area has: Continuous Slow Oozing, Sudden Increased Bleeding, Increased Pain/ Swelling, Increased Redness, Foul Smelling Discharge and Swelling at the incision site Call your doctor if you observe: Fever of 101 or Higher, Coldness, Increased Pain, Shortness of breath, Chest pain, Calf discomfort and Uncontrolled pain Change Dressing in: leave in place till F/U (will change operative dressing in office in one week. ) Cleanse incision/area with: Keep Dressing Clean & Dry (wear plastic bag over right hand when showering) Additional Dressing/Incision Instructions:: If the dressing is too tight, may loosen it and rewrap a little looser. Follow Up Care Please Follow Up With: David Miller MD When: one week. call [phone] for appt. Test Results: Test results from this visit will be discussed in further detail at your follow- up appointment, if applicable. Discharge Plan Admission Primary Reason for Your Visit: excision soft tissue mass dorsum right wrist Attending Provider: David Miller Primary Care Provider: Jessica Dan Discharge Orders/Prescriptions Prescriptions: New cefadroxil 500 mg capsule 500 mg PO BID Qty: 10 0RF L.acidoph,saliva-B.bif-S.therm [Acidophilus Probiotic Blend] 175 mg capsule 1 cap PO DAILY Qty: 10 0RF Continued aspirin [Adult Aspirin Regimen] 81 mg tablet,delayed release (DR/EC) 81 mg PO DAILY Label Comments: STOP 3 DAYS PRIOR Centrum Silver Men 300-600-300 mcg tablet 1 tab PO DAILY omeprazole 10 mg capsule,delayed release(DR/EC) 20 mg PO MOTH Label Comments: TAKE 1 CAPSULE BY MOUTH DAILY NEEDED FOR REFLUX Fiber (dextrin) 3 gram/3.5 gram Powder 3 g PO TID benazepril 40 mg tablet 40 mg PO QHS atorvastatin 80 mg tablet 80 mg PO QHS Qty: 90 3RF metoprolol tartrate 25 mg tablet 25 mg PO BID Qty: 180 3RF metformin 500 mg tablet 500 mg PO BID Qty: 180 3RF amlodipine 10 mg tablet 10 mg PO DAILY Qty: 90 3RF Referrals / Follow Up: David Miller MD [Med Staff - Active Staff] - (followup one week.) Jessica Dan MD [Primary Care Provider] - Disposition Disposition (needs filled in before D/C Order can be placed): Home, Self Care 10/04/22 1212<Electronically signed by David Miller MD>David Miller MD CC: Dr. Jessica Dan MD ~ Signed [facility] Work Phone: Evaluation note* Diagnosis Onset Date Resolution Status Atherosclerosis of coronary artery of [place] heart without angina pectoris chronic Essential (primary) hypertension chronic Hyperlipidemia chronic Thoracic aortic aneurysm (TAA) chronic H/O coronary artery bypass surgery May 26, 2013 resolved History of coronary angioplasty May 23, 2013 resolved [facility] Work Phone: Evaluation note* Diagnosis Systolic murmur Undiagnosed cardiac murmurs documented in this encounter [facility] Work Phone: Evaluation noteNo assessment information available [facility] Work Phone: Evaluation note* Diagnosis Onset Date Resolution Status Atherosclerosis of coronary artery of [place] heart without angina pectoris chronic Essential (primary) hypertension chronic Hyperlipidemia chronic Prostate cancer chronic Type 2 diabetes mellitus chr onic H/O coronary artery bypass surgery May 26, 2013 resolved History of coronary angioplasty May 23, 2013 resolved COVID noneactive [facility] Work Phone: Evaluation note* Diagnosis Onset Date Resolution Status Atherosclerosis of coronary artery of [place] heart without angina pectoris chronic Essential (primary) hypertension chronic Hyperlipidemia chronic Prostate cancer chronic Type 2 diabetes mellitus chr onic H/O coronary artery bypass surgery May 26, 2013 resolved History of coronary angioplasty May 23, 2013 resolved COVID noneactive Ganglion cyst of dorsum of right wrist chronic Hemoglobin A1c between 7.0% and 9.0% chronic Type 2 diabetes mellitus chr onic Ganglion cyst of dorsum of right wrist chronic Hemoglobin A1c between 7.0% and 9.0% chronic Type 2 diabetes mellitus chr onic [facility] Work Phone: Evaluation note* Diagnosis Onset Date Resolution Status Hemoglobin A1c between 7.0% and 9.0% chronic Type 2 diabetes mellitus chr onic Hemoglobin A1c between 7.0% and 9.0% chronic Mass of soft tissue of wrist chronic Type 2 diabetes mellitus chr onic Hemoglobin A1c between 7.0% and 9.0% chronic Mass of soft tissue of wrist chronic Type 2 diabetes mellitus chr onic Vascular leiomyoma chronic Hemoglobin A1c between 7.0% and 9.0% chronic Mass of soft tissue of wrist chronic Type 2 diabetes mellitus chr onic Vascular leiomyoma chronic Essential (primary) hypertension chronic Hyperlipidemia chronic Thoracic aortic aneurysm (TAA) chronic H/O coronary artery bypass surgery May 26, 2013 resolved [facility] Work Phone: [phone] note* Diagnosis Onset Date Resolution Status Reducible left inguinal hernia acute Umbilical hernia acute Reducible left inguinal hernia acute Umbilical hernia acute [facility] Work Phone: Hospital Discharge instructions Additional Instructions [facility] Work Phone: Reason for referral (narrative)No reason for referral information availableWOhioHealth Doctors Hospital Work Phone: Summary Purpose Family History No Family History Records Found Relationship Condition Age at Onset Recorded Date/T girma father Coronary artery disease Unknown Advance Directives No Advanced Directives Records FoundDocuments on File Type Date Recorded 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 Advance Directives and Living Will Power of Licensed Appraiser Advance Directive Response Recorded Date/ Time Living Will No September 18 1:45pm Power of Licensed Appraiser No September 18, 2022 1:45pm Advance Directive Response Recorded Date/ Time Living Will No September 18 2:45pm Power of Licensed Appraiser No September 18, 2022 2:45pm Advance Directive Response Recorded Date/ Time Living Will No May 27 9:10am Power of Licensed Appraiser No May 27, 2023 9:10am Advance Directive Response Recorded Date/ Time Living Will No May 27 8:10am Power of Licensed Appraiser No May 27, 2023 8:10am Chief Complaint and Reason for Visit Chief Complaint 1 Y FU (MOVED FROM [facility]) I71.2 Reason for Visit Atherosclerosis of c oronary artery of [place] heart without angina pectoris Essential (primary) hypertension Hyperlipidemia Thoracic aortic aneurysm (TAA) H/O coronary artery bypass surgery History of coronary angioplasty Chief Complaint 6 M FU alexis bower Reason for Visit Atherosclerosis of c oronary artery of [place] heart without angina pectoris Essential (primary) hypertension Hyperlipidemia Prostate cancer Type 2 diabetes mellitus H/O coronary artery bypass surgery History of coronary angioplasty COVID Chief Complaint 6 M FU alexis bower Consult XRAY EXCISION GANGLION DORSUM RT WRIST EXCISION GANGLION DORSUM RT WRIST Reason for Visit Atherosclerosis of c oronary artery of [place] heart without angina pectoris Essential (primary) hypertension Hyperlipidemia Prostate cancer Type 2 diabetes mellitus H/O coronary artery bypass surgery History of coronary angioplasty COVID Ganglion cyst of dorsum of right wrist Hemoglobin A1c between 7.0% and 9.0% Type 2 diabetes mellitus Ganglion cyst of dorsum of right wrist Hemoglobin A1c between 7.0% and 9.0% Type 2 diabetes mellitus Chief Complaint Consult XRAY EXCISION GANGLION DORSUM RT WRIST EXCISION GANGLION DORSUM RT WRIST Post Op Post Op 1 y fu (PT REQUESTED TO SEE RECONCILEMENT CLERK) E ORDER Reason for Visit Hemoglobin A1c betwe en 7.0% and 9.0% Type 2 diabetes mellitus Hemoglobin A1c between 7.0% and 9.0% Mass of soft tissue of wrist Type 2 diabetes mellitus Hemoglobin A1c between 7.0% and 9.0% Mass of soft tissue of wrist Type 2 diabetes mellitus Vascular leiomyoma Hemoglobin A1c between 7.0% and 9.0% Mass of soft tissue of wrist Type 2 diabetes mellitus Vascular leiomyoma Essential (primary) hypertension Hyperlipidemia Thoracic aortic aneurysm (TAA) H/O coronary artery bypass surgery Chief Complaint Hernia INGUINAL HERNIA PREOP Lap Robotic Left poss bilateral In Lap Robotic Left poss bilateral In Reason for Visit Reducible left ingui nal hernia Umbilical hernia Reducible left inguinal hernia Umbilical hernia Chief Complaint Hernia INGUINAL HERNIA PREOP Lap Robotic Left poss bilateral In Lap Robotic Left poss bilateral In EORDER Reason for Visit Reducible left ingui nal hernia Umbilical hernia Reducible left inguinal hernia Umbilical hernia Chief Complaint EORDER Chief Complaint Admit Date E-ORDER November 18, 2024 7:4 9am Additional Source Comments (unrecognized sect ion and content) No Status Records FoundNo Status Records FoundNo Status Records FoundNo Status Records Found INFORMATION SOURCE (unrecogn ized section and content) DATE CREATED AUTHOR 08/24/2019 [facility] DATE CREATED AUTHOR AUTHOR'S ORGANIZ ATION 08/21/2022 [facility] DATE CREATED AUTHOR AUTHOR'S ORGANIZ ATION 09/10/2022 [facility] DATE CREATED AUTHOR AUTHOR'S ORGANIZ ATION 11/27/2024 [facility] Goals (unrecognized section and content) Goals may be documented in a n alternate sectionGoals may be documented in an alternate sectionGoals may be documented in an alternate sectionGoals may be documented in an alternate sectionGoals may be documented in an alternate section Source Comments (unrecognize d section and content) In the event this informatio n is protected by the Federal Confidentiality of Alcohol and Drug Abuse Patient Records regulations: The Federal rules restrict any use of the information to criminally investigate or prosecute any alcohol or drug abuse patient.[facility] Reason for Visit (unrecogniz ed section and content) Reason Comments Appointment Care Teams (unrecognized sec tion and content) 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 Uziel Merritt MD Family Provider Active Dr. Jessica Dan MD Primary Care Provider Active Team Status: Inactive Member Role Status Dates Uziel Infante MD Referring Provider Active Dr. Jessica Dan MD Primary Care Provider, Attendi ng Provider Active Team Status: Inactive Member Role Status Dates Dr. Jessica Dan MD Primary Care Provider, Referri ng Provider Active PEYTON Reyez Attending Provider Active Team Status: Inactive Member Role Status Dates Dr. Jessica Dan MD Primary Care Provider, Referri ng Provider Active Dr. David Miller MD Attending Provider Active Team Status: Inactive Member Role Status Dates Dr. Jessica Dan MD Primary Care Provider Active Dr. Ankit Foster MD Attending Provider Active Team Status: Active Member Role Status Dates Dr. Jessica Dan MD Primary Care Provider Active Dr. David Miller MD Attending Provide r, Referring Provider, Other Provider Active Team Status: Inactive Member Role Status Dates Dr. Jessica Dan MD Primary Care Provider Active PEYTON Reyez Attending Provider, Referring Pro vider Active Team Status: Inactive Member Role Status Dates Dr. Jessica Dan MD Primary Care Provider Active Dr. David Miller MD Attending Provider, Referring P rovider Active Team Status: Inactive Member Role Status Dates Dr. Jessica Dan MD Primary Care Provider, Referri ng Provider Active Dr. Ankit Foster MD Attending Provider Active Team Status: Inactive Member Role Status Dates Dr. Jessica Dan MD Primary Care Provider, Referri ng Provider Active Noelle Astudillo STORAGE FACILITY HOUSEKEEPER, STORAGE FACILITY HOUSEKEEPER-C Attending Provider Active Team Status: Inactive Member Role Status Dates Dr. Jessica Dan MD Primary Care Pro vider, Attending Provider, Referring Provider Active Team Status: Inactive Member Role Status Dates Dr. Jessica Dan MD Primary Care Provider, Attendi ng Provider Active Team Status: Inactive Member Role Status Dates Dr. Jessica Dan MD Primary Care Provider, Referri ng Provider Active Dr. Aly Fraire MD Attending Provider Active Team Status: Active Member Role Status Dates Dr. Jessica Dan MD Primary Care Provider Active Dr. Ankit Foster MD Attending Provider Active Dr. Rodrigo Simmons MD Referring Provider Active Team Status: Active Member Role Status Dates Dr. Jessica Dan MD Primary Care Provider Active Dr. Aly Fraire MD Attending Pr ovider, Referring Provider, Other Provider Active Team Status: Inactive Member Role Status Dates Dr. Jessica Dan MD Primary Care Provider Active Dr. Aly Fraire MD Attending Provider, Referr ing Provider Active Team Status: Inactive Member Role Status Dates Dr. Jessica Dan MD Primary Care Provider Active Start: November 18, 2024 End: November 18, 2024 Dr. Jessica Dan MD Attending Provider Active Start: November 18, 2024 End: November 18, 2024 Dr. Jessica Dan MD Referring Provider Active Start: November 18, 2024 End: November 18, 2024 FOR RECORDS PERTAINING TO PATIENTS WHO ARE OR HAVE BEEN ENROLLED IN A CHEMICAL DEPENDENCY/SUBSTANCEABUSE PROGRAM, SOME INFORMATION MAY BE OMITTED. This clinical summary was aggregated from multiple sources. Caution should be exercised in using it in the provision of clinical care. This summary normalizes information from multiple sources, and as a consequence, information in this document may materially change the coding, format and clinical context of patient data. In addition, data may be omitted in some cases. CLINICAL DECISIONS SHOULD BE BASED ON THE PRIMARY CLINICAL RECORDS. [employer] [facility]. provides no warranty or guarantee of the accuracy or completeness of information in this document.
[2025-03-02 11:16] LABS: AST(SGOT) 23 U/L (<=37); Alanine Aminotransfer ALT/SGPT 26 U/L (<=46); Albumin, Serum 4.3 g/dL (3.4-4.8); Alkaline Phosphatase 72 U/L (40-129); Anion Gap 12 (5-15); BUN 26 mg/dL (4-19); BUN/Creat Ratio 25.9 RATIO (10-20); Calcium,Total 9.4 mg/dL (7.6-11.0); Carbon Dioxide 22.1 mmol/L (21.0-32.0); Chloride 105 mmol/L (98-108); Globulin 2.2 g/dL (2.2-4.2); Glucose 163 mg/dL (70-99); Potassium 4.3 mmol/L (3.3-5.1)
== END | disposition home or self-care (01) ==
LOC: MTLAB 07:23
PROVIDERS: PCP Internal Medicine; Referring Provider Internal Medicine; Visit Provider Internal Medicine
DX: R73.9 Hyperglycemia, unspecified (principal); C80.1 Malignant (primary) neoplasm, unspecified
CPT/HCPCS: 36415; 80053; 83036; 83525

== ENCOUNTER → 2025-06-30 | Outpatient (CLI) | payer MEDICARE, OTHER, SELFPAY ==
[2025-06-30 10:42] LABS: AST(SGOT) 19 U/L (<=37); Alanine Aminotransfer ALT/SGPT 27 U/L (<=46); Albumin, Serum 4.1 g/dL (3.4-4.8); Alkaline Phosphatase 70 U/L (40-129); Bilirubin, Direct 0.22 mg/dL (0.00-0.30); Globulin 2.3 g/dL (2.2-4.2)
[2025-06-30 10:50] LABS: AST(SGOT) 21 U/L (<=37); Alanine Aminotransfer ALT/SGPT 28 U/L (<=46); Albumin, Serum 4.1 g/dL (3.4-4.8); Alkaline Phosphatase 69 U/L (40-129); Anion Gap 9 (5-15); BUN 18 mg/dL (4-19); BUN/Creat Ratio 18.3 RATIO (10-20); Calcium,Total 9.5 mg/dL (7.6-11.0); Carbon Dioxide 24.4 mmol/L (21.0-32.0); Chloride 107 mmol/L (98-108); Cholesterol 115 mg/dL (<=200); Globulin 2.2 g/dL (2.2-4.2); Glucose 190 mg/dL (70-99); Low Density Lipoprotein Calc. 64 mg/dL; Potassium 4.4 mmol/L (3.3-5.1); Triglycerides 60 mg/dL; Very Low Density Lipoprotein 12 mg/dL (5-40); cholesterol:hdl ratio screen 3.05
[2025-06-30 10:55] LABS: PSA,Total- Diagnostic < 0.02 ng/mL (0.00-4.00)
== END | disposition home or self-care (01) ==
LOC: MTLAB 08:48
PROVIDERS: Internal Medicine Cardiovascular Disease; PCP Internal Medicine; Referring Provider Internal Medicine; Visit Provider Internal Medicine
DX: Z13.220 Encounter for screening for lipoid disorders (principal); E78.5 Hyperlipidemia, unspecified; C61 Malignant neoplasm of prostate; E11.9 Type 2 diabetes mellitus without complications; N40.0 Benign prostatic hyperplasia without lower urinary tract symptoms
CPT/HCPCS: 36415; 80053; 80061; 80076; 83036; 84153